=== PATIENT | female | born 1975 | race Caucasian/White ===

== ENCOUNTER 2019-04-12 16:54 | Emergency (ER) | payer MEDICAID ==
[~2019-04-12] VITALS: Ht 160 cm; Wt 100.2 kg
[~2019-04-12 16:54] MED LIST: ALPR1T PO; CYCL10TA9; DCS100C PO; FERR-57 PO; FOLI1TAB7 PO; HYDR-34; HYDR-34 PO; HYDR-3720 PO; IBP600T1 PO; IBUP-15; IBUP-1773 PO; IBUP800T26 PO; KETO-22 PO; MDR10T PO; MEDR10TA PO; RT-ALBUINH IH; SERT50TA9 PO; SLMFT1E INH; Simethicone PO
--- OUTSIDE RECORDS SUMMARY | 2019-04-12 16:59 | XMS REPORT ---
Author Author PRINCE COHEN Organization [facility] Address [address] [place] [address] Care Team Providers Care Post Closing Specialist Name Role Phone PRINCE COHEN Unavailable PROBLEMS Type Condition ICD9-CM Code [id number] Code Onset Dates Condition Status SNOMED Code Problem Hypertriglyceridemia E78.1 Active 760456979 Problem Moderate episode of recurrent major depressive disorder F33.1 Active 018927226 Problem Encounter to establish care Z76.89 Active 044213727 Problem Grief F43.20 Active 01991242 Problem Urinary incontinence without sensory awareness N39.42 Active 513431131 Problem Anxiety F41.9 Active 26828321 Problem Migraine with status migrainosus, not intractable, unspecified migraine type G43.901 Active 781285774 Problem Essential hypertension I10 Active 84179966 Problem Other chronic pain G89.29 Active 32570887 ALLERGIES No Information ENCOUNTERS Encounter Location Date Diagnosis [place] [id number] [place] [id number] [place] [address] 24 May, 2018 [place] [id number] [place] [address] 14 May, 2018 Other chronic pain G89.29 [facility] [id number] [place] [address] Apr, Other chronic pain G89.29 [facility] [id number] [place] [address] Mar, Other chronic pain G89.29 [facility] [id number] [place] [address] Feb, Other chronic pain G89.29 [facility] [address] [address] January, Other chronic pain G89.29 [facility] [id number] [place] [address] Dec, Other chronic pain G89.29 [facility] [id number] [place] [address] Dec, [facility] [id number] [place] [address] Dec, Essential hypertension I10 and Anxiety F41.9 [facility] [id number] [place] [address] Nov, Anxiety F41.9 ; Essential hypertension I10 ; Chronic prescription opiate use Z79.891 and BMI 50.0-59.9, adult Z68.43 [place] [id number] [place] [address] Nov, Other chronic pain G89.29 [facility] [id number] [place] [address] Nov, Other chronic pain G89.29 [facility] [id number] [place] [address] Oct, [facility] [id number] [place] [address] Oct, [facility] [id number] [place] [address] Oct, Essential hypertension I10 ; Encounter for immunization Z23 ; BMI 50.0-59.9, adult Z68.43 ; Other chronic pain G89.29 ; Tobacco use Z72.0 and Tobacco abuse counseling Z71.6 [place] [id number] [place] [address] 02 Oct, 2017 Other chronic pain G89.29 [facility] [id number] [place] [address] Sep, Other chronic pain G89.29 [facility] [id number] [place] [address] Aug, Other chronic pain G89.29 [facility] [address] [address] Jul, Other chronic pain G89.29 [facility] [id number] [place] [address] 18 Jun, 2017 Hypertriglyceridemia E78.1 [facility] [address] [address] 16 Jun, 2017 Other chronic pain G89.29 ; Essential hypertension I10 and Anxiety F41.9 [place] [address] [address] May, Other chronic pain G89.29 [place] [address] [address] Apr, Other chronic pain G89.29 [place] [address] [address] Mar, Grief F43.20 [place] [address] [address] Mar, Other chronic pain G89.29 [place] [id number] [place] [address] Feb, Other chronic pain G89.29 [place] [id number] [place] [address] Feb, Annual physical exam Z00.00 ; Acute right flank pain R10.9 ; Urinary incontinence without sensory awareness N39.42 ; Anxiety F41.9 and Essential hypertension I10 [place] [id number] [place] [address] January, Other chronic pain G89.29 [facility] [id number] [place] [address] January, Other chronic pain G89.29 [place] [id number] [place] [address] January, [place] [address] [address] Dec, Essential hypertension I10 ; Anxiety F41.9 and Other chronic pain G89.29 [place] [address] [address] Nov, [place] [address] [address] Nov, Mild intermittent asthma without complication J45.20 [place] [address] [address] Oct, [place] [address] [address] Oct, [place] [address] [address] Oct, [place] [address] [address] Oct, Essential hypertension I10 ; Anxiety F41.9 and Rash R21 [place] [id number] [place] [address] Oct, [place] [id number] [place] [address] Oct, Allergic contact dermatitis, unspecified trigger L23.9 [place] [id number] [place] [address] Oct, [place] [address] [address] Sep, Anxiety F41.9 and Moderate episode of recurrent major depressive disorder F33.1 [place] [id number] [place] [address] Sep, Anxiety F41.9 and Essential hypertension I10 [facility] [address] [id number], [place] [address] Sep, [facility] [address] [id number], [place] [address] Aug, [facility] [address] [id number], [place] [address] Aug, [facility] [address] [facility] [id number] [place] [address] Aug, [facility] [address] [id number], [place] [address] Jul, Other chronic pain G89.29 [facility] [id number] [place] [address] Jul, [facility] [address] [facility] [id number] [place] [address] Jun, Other chronic pain G89.29 [facility] [address] [id number], [place] [address] Jun, [facility] [address] [facility] [id number] [place] [address] Jun, [facility] [address] [facility] [id number], [place] [address] Jun, Other chronic pain G89.29 [facility] [address] [facility] [id number], [place] [address] Jun, [facility] [address] [facility] [id number], [place] [address] 30 May, 2016 Sweating abnormality L74.9 and Hot flashes R23.2 [facility] [address] [facility] [id number], [place] [address] 20 May, 2016 [facility] [address] [facility] [id number], [place] [address] 19 May, 2016 Other chronic pain G89.29 [facility] [address] [facility] [id number] [place] [address] Apr, Other chronic pain G89.29 ; Mild intermittent asthma without complication J45.20 and Rash R21 [facility] [address] [facility] [id number] [place] [address] Mar, Encounter to establish care Z76.89 ; Migraine with status migrainosus, not intractable, unspecified migraine type G43.901 ; Anxiety F41.9 and Moderate episode of recurrent major depressive disorder F33.1 IMMUNIZATIONS No Known Immunizations SOCIAL HISTORY Never Assessed REASON FOR VISIT Controlled Med Refill 04/25/18 PLAN OF CARE VITAL SIGNS MEDICATIONS Medication Instructions Dosage Frequency Start Date End Date Duration Status Hydrocodone-Acetaminophen 10-325 MG Orally 3 times a day 1 tablet 8h Apr, 28 days Active RESULTS No Results PROCEDURES No Known procedures INSTRUCTIONS MEDICATIONS ADMINISTERED No Known Medications MEDICAL (GENERAL) HISTORY Type Description Date Medical History Anxiety Medical History Major depressive disorder, single episode, unspecified Medical History Pain, unspecified Medical History asthma Surgical History cholecystectomy Surgical History section Surgical History partial hysterectomy Hospitalization History surgeries
--- OUTSIDE RECORDS SUMMARY | 2019-04-12 16:59 | XMS REPORT ---
Author Author PRINCE COHEN Organization [facility] Address [address] [place] [address] Care Team Providers Care Director Of Transportation Name Role Phone PRINCE COHEN Unavailable PROBLEMS Type Condition ICD9-CM Code AUZ30-ER Code Onset Dates Condition Status SNOMED Code Problem Hypertriglyceridemia E78.1 Active 602682303 Problem Moderate episode of recurrent major depressive disorder F33.1 Active 970328506 Problem Encounter to establish care Z76.89 Active 237912020 Problem Grief F43.20 Active 65842687 Problem Urinary incontinence without sensory awareness N39.42 Active 838114552 Problem Anxiety F41.9 Active 38972081 Problem Migraine with status migrainosus, not intractable, unspecified migraine type G43.901 Active 979089567 Problem Essential hypertension I10 Active 41926546 Problem Other chronic pain G89.29 Active 20504871 ALLERGIES No Information ENCOUNTERS Encounter Location Date Diagnosis [place] [address] [address] Jul, Other chronic pain G89.29 [place] [address] [place] [address] [id number] [place] [address] Jun, Other chronic pain G89.29 [place] [address] [address] 24 May, 2018 Essential hypertension I10 ; Anxiety F41.9 ; BMI 50.0-59.9, adult Z68.43 and Therapeutic drug monitoring Z51.81 [place] [address] [address] 14 May, 2018 Other chronic pain G89.29 [place] [address] [address] Apr, Other chronic pain G89.29 [facility] [address] [address] Mar, Other chronic pain G89.29 [facility] [id number] [place] [address] Feb, Other chronic pain G89.29 [facility] [id number] [place] [address] January, Other chronic pain G89.29 [facility] [id number] [place] [address] Dec, Other chronic pain G89.29 [facility] [id number] [place] [address] Dec, [facility] [id number] [place] [address] Dec, Essential hypertension I10 and Anxiety F41.9 [facility] [id number] [place] [address] Nov, Anxiety F41.9 ; Essential hypertension I10 ; Chronic prescription opiate use Z79.891 and BMI 50.0-59.9, adult Z68.43 [facility] [id number] [place] [address] Nov, Other chronic pain G89.29 [facility] [id number] [place] [address] Nov, Other chronic pain G89.29 [facility] [address] [place] [address] Oct, [facility] [id number] [place] [address] Oct, [facility] [address] [place] [address] Oct, Essential hypertension I10 ; Encounter for immunization Z23 ; BMI 50.0-59.9, adult Z68.43 ; Other chronic pain G89.29 ; Tobacco use Z72.0 and Tobacco abuse counseling Z71.6 [facility] [id number] [place] [address] Oct, Other chronic pain G89.29 [facility] [id number] [place] [address] Sep, Other chronic pain G89.29 [facility] [address] [address] Aug, Other chronic pain G89.29 [facility] [address] [address] Jul, Other chronic pain G89.29 [place] [address] [address] Jun, Hypertriglyceridemia E78.1 [place] [address] [address] Jun, Other chronic pain G89.29 ; Essential hypertension I10 and Anxiety F41.9 [place] [address] [address] May, Other chronic pain G89.29 [facility] [address] [address] Apr, Other chronic pain G89.29 [facility] [address] [address] Mar, Grief F43.20 [facility] [address] [place] [id number] [place] [address] Mar, Other chronic pain G89.29 [place] [address] [address] Feb, Other chronic pain G89.29 [facility] [id number] [place] [address] Feb, Annual physical exam Z00.00 ; Acute right flank pain R10.9 ; Urinary incontinence without sensory awareness N39.42 ; Anxiety F41.9 and Essential hypertension I10 [place] [address] [address] January, Other chronic pain G89.29 [place] [address] [address] January, Other chronic pain G89.29 [facility] [address] [address] January, [place] [address] [address] Dec, Essential hypertension I10 ; Anxiety F41.9 and Other chronic pain G89.29 [place] [address] [address] Nov, [place] [address] [address] Nov, Mild intermittent asthma without complication J45.20 [place] [address] [address] Oct, [place] [address] [address] Oct, [place] [address] [address] Oct, [facility] [address] [address] Oct, Essential hypertension I10 ; Anxiety F41.9 and Rash R21 [place] [address] [address] Oct, [place] [address] [address] Oct, Allergic contact dermatitis, unspecified trigger L23.9 [place] [address] [place] [address] Oct, [facility] [id number] [place] [address] Sep, Anxiety F41.9 and Moderate episode of recurrent major depressive disorder F33.1 [facility] [id number] [place] [address] Sep, Anxiety F41.9 and Essential hypertension I10 [facility] [id number] [place] [address] Sep, [facility] [id number] [place] [address] Aug, [facility] [id number] [place] [address] Aug, [facility] [id number] [place] [address] Aug, [facility] [id number] [place] [address] Jul, Other chronic pain G89.29 [facility] [id number] [place] [address] Jul, [facility] [id number] [place] [address] Jun, Other chronic pain G89.29 [facility] [id number] [place] [address] Jun, [facility] [id number] [place] [address] Jun, [facility] [id number] [place] [address] Jun, Other chronic pain G89.29 [facility] [address] [place] [address] Jun, [facility] [id number] [address] 30 May, 2016 Sweating abnormality L74.9 and Hot flashes R23.2 [place] [address] [place] [address] May, [place] [address] [place] [address] 19 May, 2016 Other chronic pain G89.29 [place] [address] [place] [address] [id number] [place] [address] Apr, Other chronic pain G89.29 ; Mild intermittent asthma without complication J45.20 and Rash R21 [address] [place] [address] Mar, Encounter to establish care Z76.89 ; Migraine with status migrainosus, not intractable, unspecified migraine type G43.901 ; Anxiety F41.9 and Moderate episode of recurrent major depressive disorder F33.1 IMMUNIZATIONS No Known Immunizations SOCIAL HISTORY Never Assessed REASON FOR VISIT Controlled Med Refill 07/18/18 PLAN OF CARE VITAL SIGNS MEDICATIONS Medication Instructions Dosage Frequency Start Date End Date Duration Status Hydrocodone-Acetaminophen 10-325 MG Orally 3 times a day 1 tablet 8h 10 Jul, 2018 28 days Active RESULTS No Results PROCEDURES No Known procedures INSTRUCTIONS MEDICATIONS ADMINISTERED No Known Medications MEDICAL (GENERAL) HISTORY Type Description Date Medical History Anxiety Medical History Major depressive disorder, single episode, unspecified Medical History Pain, unspecified Medical History asthma Surgical History cholecystectomy Surgical History section Surgical History partial hysterectomy Hospitalization History surgeries
--- OUTSIDE RECORDS SUMMARY | 2019-04-12 16:59 | XMS REPORT ---
Author Author PRINCE COHEN Organization [facility] Address [address] [place] [address] Care Team Providers Care Asbestos Worker Name Role Phone PRINCE COHEN Unavailable PROBLEMS Type Condition ICD9-CM Code [id number] Code Onset Dates Condition Status SNOMED Code Problem Hypertriglyceridemia E78.1 Active 360455530 Problem Moderate episode of recurrent major depressive disorder F33.1 Active 859632781 Problem Encounter to establish care Z76.89 Active 678716252 Problem Grief F43.20 Active 37691319 Problem Urinary incontinence without sensory awareness N39.42 Active 472900956 Problem Anxiety F41.9 Active 03037736 Problem Migraine with status migrainosus, not intractable, unspecified migraine type G43.901 Active 202017340 Problem Essential hypertension I10 Active 35706319 Problem Other chronic pain G89.29 Active 35175633 ALLERGIES No Information ENCOUNTERS Encounter Location Date Diagnosis [place] [id number] [place] [address] 12 Jun, 2018 Other chronic pain G89.29 [place] [id number] [place] [address] 24 May, 2018 Essential hypertension I10 ; Anxiety F41.9 ; BMI 50.0-59.9, adult Z68.43 and Therapeutic drug monitoring Z51.81 [place] [id number] [place] [address] 14 May, 2018 Other chronic pain G89.29 [place] [id number] [place] [address] Apr, Other chronic pain G89.29 [place] [id number] [place] [address] Mar, Other chronic pain G89.29 [facility] [id number] [place] [address] Feb, Other chronic pain G89.29 [facility] [id number] [place] [address] January, Other chronic pain G89.29 [facility] [id number] [place] [address] Dec, Other chronic pain G89.29 [facility] [id number] [place] [address] Dec, [place] [address] [address] Dec, Essential hypertension I10 and Anxiety F41.9 [place] [address] [address] Nov, Anxiety F41.9 ; Essential hypertension I10 ; Chronic prescription opiate use Z79.891 and BMI 50.0-59.9, adult Z68.43 [facility] [id number] [place] [address] Nov, Other chronic pain G89.29 [facility] [id number] [place] [address] Nov, Other chronic pain G89.29 [facility] [id number] [place] [address] Oct, [facility] [id number] [place] [address] Oct, [facility] [id number] [place] [address] Oct, Essential hypertension I10 ; Encounter for immunization Z23 ; BMI 50.0-59.9, adult Z68.43 ; Other chronic pain G89.29 ; Tobacco use Z72.0 and Tobacco abuse counseling Z71.6 [place] [id number] [place] [address] Oct, Other chronic pain G89.29 [facility] [address] [address] Sep, Other chronic pain G89.29 [facility] [id number] [place] [address] Aug, Other chronic pain G89.29 [facility] [address] [address] Jul, Other chronic pain G89.29 [facility] [address] [address] Jun, Hypertriglyceridemia E78.1 [facility] [address] [address] 16 Jun, 2017 Other chronic pain G89.29 ; Essential hypertension I10 and Anxiety F41.9 [facility] [address] [address] May, Other chronic pain G89.29 [facility] [address] [address] Apr, Other chronic pain G89.29 [facility] [id number] [place] [address] Mar, Grief F43.20 [facility] [address] [address] Mar, Other chronic pain G89.29 [facility] [id number] [place] [address] Feb, Other chronic pain G89.29 [facility] [address] [address] Feb, Annual physical exam Z00.00 ; Acute right flank pain R10.9 ; Urinary incontinence without sensory awareness N39.42 ; Anxiety F41.9 and Essential hypertension I10 [facility] [id number] [place] [address] January, Other chronic pain G89.29 [facility] [address] [address] January, Other chronic pain G89.29 [facility] [address] [address] January, [facility] [address] [address] Dec, Essential hypertension I10 ; Anxiety F41.9 and Other chronic pain G89.29 [facility] [address] [address] Nov, [facility] [address] [address] Nov, Mild intermittent asthma without complication J45.20 [facility] [address] [address] Oct, [facility] [id number] [place] [address] Oct, [facility] [id number] [place] [address] Oct, [facility] [id number] [place] [address] Oct, Essential hypertension I10 ; Anxiety F41.9 and Rash R21 [facility] [id number] [place] [address] Oct, [facility] [address] [address] Oct, Allergic contact dermatitis, unspecified trigger L23.9 [facility] [id number] [place] [address] Oct, [facility] [address] [address] Sep, Anxiety F41.9 and Moderate episode of recurrent major depressive disorder F33.1 [facility] [id number] [place] [address] Sep, Anxiety F41.9 and Essential hypertension I10 [facility] [id number] [place] [address] Sep, [facility] [id number] [place] [address] Aug, [facility] [id number] [place] [address] Aug, [facility] [id number] [place] [address] Aug, [facility] [id number] [place] [address] Jul, Other chronic pain G89.29 [facility] [id number] [place] [address] Jul, [facility] [id number] [place] [address] Jun, Other chronic pain G89.29 [facility] [id number] [place] [address] Jun, [facility] [id number] [place] [address] Jun, [facility] [id number] [place] [address] Jun, Other chronic pain G89.29 [facility] [id number] [place] [address] Jun, [facility] [address] [place] [id number] [place] [address] 30 May, 2016 Sweating abnormality L74.9 and Hot flashes R23.2 [facility] [address] [facility] [id number] [address] May, [facility] [address] [facility] [id number] [address] May, Other chronic pain G89.29 [place] [address] [place] [address] [id number] [address] Apr, Other chronic pain G89.29 ; Mild intermittent asthma without complication J45.20 and Rash R21 [place] [address] [place] [address] [id number] [address] Mar, Encounter to establish care Z76.89 ; Migraine with status migrainosus, not intractable, unspecified migraine type G43.901 ; Anxiety F41.9 and Moderate episode of recurrent major depressive disorder F33.1 IMMUNIZATIONS No Known Immunizations SOCIAL HISTORY Never Assessed REASON FOR VISIT Controlled Med Refill 06/20/18 PLAN OF CARE VITAL SIGNS MEDICATIONS Medication Instructions Dosage Frequency Start Date End Date Duration Status Hydrocodone-Acetaminophen 10-325 MG Orally 3 times a day 1 tablet 8h 15 Jun, 2018 28 days Active RESULTS No Results PROCEDURES No Known procedures INSTRUCTIONS MEDICATIONS ADMINISTERED No Known Medications MEDICAL (GENERAL) HISTORY Type Description Date Medical History Anxiety Medical History Major depressive disorder, single episode, unspecified Medical History Pain, unspecified Medical History asthma Surgical History cholecystectomy Surgical History section Surgical History partial hysterectomy Hospitalization History surgeries
--- OUTSIDE RECORDS SUMMARY | 2019-04-12 16:59 | XMS REPORT ---
Author Author PRINCE COHEN Organization [facility] Address [address] [place] [address] Care Team Providers Care Family Helper Name Role Phone PRINCE COHEN Unavailable PROBLEMS Type Condition ICD9-CM Code VBF07-VC Code Onset Dates Condition Status SNOMED Code Problem Hypertriglyceridemia E78.1 Active 239926941 Problem Encounter to establish care Z76.89 Active 422981862 Problem Moderate episode of recurrent major depressive disorder F33.1 Active 137726048 Problem Urinary incontinence without sensory awareness N39.42 Active 575039705 Problem Grief F43.20 Active 34149963 Problem Migraine with status migrainosus, not intractable, unspecified migraine type G43.901 Active 071158821 Problem Anxiety F41.9 Active 24139286 Problem Other chronic pain G89.29 Active 28229618 Problem Essential hypertension I10 Active 33666459 ALLERGIES Substance Reaction Event Type Date Status Latex Unknown Drug Allergy Oct, Active Quinapril HCl flu like symptoms Drug Allergy Oct, Active Aspirin swelling Drug Allergy Oct, Active ENCOUNTERS Encounter Location Date Diagnosis [place] [id number] [address] Nov, [address] [place] [address] Oct, Essential hypertension I10 ; Anxiety F41.9 ; Other chronic pain G89.29 ; Therapeutic drug monitoring Z51.81 and BMI 50.0-59.9, adult Z68.43 [id number] [place] [address] Sep, Other chronic pain G89.29 [place] [address] [place] [id number] [address] Sep, Other chronic pain G89.29 [facility] [address] [address] Aug, Other chronic pain G89.29 [facility] [address] [place] [id number] [place] [address] Jul, Other chronic pain G89.29 [facility] [address] [place] [id number] [place] [address] Jun, Other chronic pain G89.29 [facility] [address] [place] [id number] [place] [address] 24 May, 2018 Essential hypertension I10 ; Anxiety F41.9 ; BMI 50.0-59.9, adult Z68.43 and Therapeutic drug monitoring Z51.81 [facility] [address] [place] [id number] [place] [address] 14 May, 2018 Other chronic pain G89.29 [facility] [address] [place] [id number] [place] [address] Apr, Other chronic pain G89.29 [facility] [address] [place] [id number] [place] [address] Mar, Other chronic pain G89.29 [facility] [address] [place] [id number] [place] [address] Feb, Other chronic pain G89.29 [facility] [address] [place] [id number] [place] [address] January, Other chronic pain G89.29 [facility] [id number] [place] [address] Dec, Other chronic pain G89.29 [facility] [address] [place] [id number] [place] [address] Dec, [facility] [id number] [place] [address] Dec, Essential hypertension I10 and Anxiety F41.9 [facility] [address] [place] [id number] [place] [address] Nov, Anxiety F41.9 ; Essential hypertension I10 ; Chronic prescription opiate use Z79.891 and BMI 50.0-59.9, adult Z68.43 [place] [address] [place] [id number] [place] [address] Nov, Other chronic pain G89.29 [place] [address] [address] Nov, Other chronic pain G89.29 [place] [address] [address] Oct, [place] [address] [address] Oct, [place] [address] [address] Oct, Essential hypertension I10 ; Encounter for immunization Z23 ; BMI 50.0-59.9, adult Z68.43 ; Other chronic pain G89.29 ; Tobacco use Z72.0 and Tobacco abuse counseling Z71.6 [place] [address] [place] [id number] [place] [address] Oct, Other chronic pain G89.29 [place] [address] [place] [id number] [place] [address] Sep, Other chronic pain G89.29 [place] [address] [place] [id number] [place] [address] Aug, Other chronic pain G89.29 [place] [address] [address] Jul, Other chronic pain G89.29 [place] [address] [place] [address] [id number] [place] [address] Jun, Hypertriglyceridemia E78.1 [place] [address] [address] Jun, Other chronic pain G89.29 ; Essential hypertension I10 and Anxiety F41.9 [facility] [address] [id number] [place] [address] 15 May, 2017 Other chronic pain G89.29 [facility] [address] [place] [id number] [place] [address] Apr, Other chronic pain G89.29 [facility] [address] [place] [id number] [place] [address] Mar, Grief F43.20 [facility] [address] [place] [address] [id number] [place] [address] Mar, Other chronic pain G89.29 [facility] [address] [place] [id number] [place] [address] Feb, Other chronic pain G89.29 [facility] [address] [place] [id number] [place] [address] Feb, Annual physical exam Z00.00 ; Acute right flank pain R10.9 ; Urinary incontinence without sensory awareness N39.42 ; Anxiety F41.9 and Essential hypertension I10 [facility] [address] [place] [id number] [place] [address] January, Other chronic pain G89.29 [facility] [address] [place] [address] January, Other chronic pain G89.29 [facility] [address] [place] [id number] [place] [address] January, [facility] [address] [place] [id number] [place] [address] Dec, Essential hypertension I10 ; Anxiety F41.9 and Other chronic pain G89.29 [facility] [address] [place] [id number] [place] [address] Nov, [facility] [address] [place] [address] Nov, Mild intermittent asthma without complication J45.20 [facility] [address] [address] Oct, [facility] [address] [address] Oct, [facility] [address] [address] Oct, [facility] [address] [address] Oct, Essential hypertension I10 ; Anxiety F41.9 and Rash R21 [place] [address] [address] Oct, [place] [address] [address] Oct, Allergic contact dermatitis, unspecified trigger L23.9 [facility] [address] [address] Oct, [facility] [address] [address] Sep, Anxiety F41.9 and Moderate episode of recurrent major depressive disorder F33.1 [place] [address] [address] Sep, Anxiety F41.9 and Essential hypertension I10 [facility] [address] [place] [id number] [place] [address] Sep, [facility] [address] [address] Aug, [facility] [address] [address] Aug, [facility] [address] [address] Aug, [facility] [address] [address] Jul, Other chronic pain G89.29 [facility] [address] [id number] [place] [address] Jul, [facility] [address] [place] [id number] [place] [address] Jun, Other chronic pain G89.29 [facility] [id number] [place] [address] Jun, [facility] [address] [place] [id number] [place] [address] Jun, [facility] [address] [id number] [place] [address] Jun, Other chronic pain G89.29 [facility] [address] [place] [id number] [place] [address] Jun, [facility] [address] [id number] [place] [address] 30 May, 2016 Sweating abnormality L74.9 and Hot flashes R23.2 [facility] [address] [place] [id number] [place] [address] May, [facility] [address] [place] [id number] [place] [address] May, Other chronic pain G89.29 [facility] [id number] [place] [address] Apr, Other chronic pain G89.29 ; Mild intermittent asthma without complication J45.20 and Rash R21 [facility] [address] [place] [id number] [place] [address] Mar, Encounter to establish care Z76.89 ; Migraine with status migrainosus, not intractable, unspecified migraine type G43.901 ; Anxiety F41.9 and Moderate episode of recurrent major depressive disorder F33.1 IMMUNIZATIONS No Known Immunizations SOCIAL HISTORY Never Assessed REASON FOR VISIT Pain management (chronic) Pt in for follow up States Rt ear has been leaking s tates eyes are hurting. Also has a knot in abdomen MONTY Sharma PLAN OF CARE Activity Details Follow Up 4 Weeks Reason:BP Pending Test PDM - 09 PANEL (PROFILE 1) VITAL SIGNS Height 53 in 2018-10-17 Weight 232.7 lbs 2018-10-17 Temperature 97.9 degrees Fahrenheit 2018-10-17 Heart Rate 91 bpm 2018-10-17 Respiratory Rate 20 2018-10-17 Oximetry on room air:97 % 2018-10-17 BMI 58.24 kg/m2 2018-10-17 Blood pressure systolic 172 mmHg 2018-10-17 Blood pressure diastolic 124 mmHg 2018-10-17 MEDICATIONS Medication Instructions Dosage Frequency Start Date End Date Duration Status Depakote ER 500 mg Orally at bedtime as directed May, 30 days Active Toprol XL 25 MG Orally Once a day 1 tablet 24h 11 Oct, 2018 30 day(s) Active Ventolin HFA 108 (90 Base) MCG/ACT Inhalation every 4 hrs 2 puffs as needed 4h 17 Active HydrOXYzine HCl 25 MG Orally every 6 hrs 1 tablet 6h 16 Oct, 2016 30 day(s) Active Zoloft 100 mg Orally Once a day 1 tablet 24h 90 Active Hydrocodone-Acetaminophen 10-325 MG Orally 3 times a day 1 tablet 8h Oct, 28 days Active RESULTS No Results PROCEDURES Procedure Date Ordered Result Body Site 09 PANEL (PROFILE 1) Oct 17, 2018 INSTRUCTIONS MEDICATIONS ADMINISTERED No Known Medications MEDICAL (GENERAL) HISTORY Type Description Date Medical History Anxiety Medical History Major depressive disorder, single episode, unspecified Medical History Pain, unspecified Medical History asthma Surgical History cholecystectomy Surgical History section Surgical History partial hysterectomy Hospitalization History surgeries
--- OUTSIDE RECORDS SUMMARY | 2019-04-12 16:59 | XMS REPORT ---
Author Author PRINCE COHEN Organization [facility] Address [address] [place] [address] Care Team Providers Care Freight Flagman Name Role Phone PRINCE COHEN Unavailable PROBLEMS Type Condition ICD9-CM Code CRC21-RN Code Onset Dates Condition Status SNOMED Code Problem Hypertriglyceridemia E78.1 Active 763860770 Problem Moderate episode of recurrent major depressive disorder F33.1 Active 070630919 Problem Encounter to establish care Z76.89 Active 172337377 Problem Grief F43.20 Active 79616788 Problem Urinary incontinence without sensory awareness N39.42 Active 643762075 Problem Anxiety F41.9 Active 61845116 Problem Migraine with status migrainosus, not intractable, unspecified migraine type G43.901 Active 520503509 Problem Essential hypertension I10 Active 03049912 Problem Other chronic pain G89.29 Active 52458933 ALLERGIES No Information ENCOUNTERS Encounter Location Date Diagnosis [place] [address] [address] 07 Aug, 2018 Other chronic pain G89.29 [place] [address] [address] Jul, Other chronic pain G89.29 [place] [address] [address] Jun, Other chronic pain G89.29 [place] [address] [address] 24 May, 2018 Essential hypertension I10 ; Anxiety F41.9 ; BMI 50.0-59.9, adult Z68.43 and Therapeutic drug monitoring Z51.81 [place] [address] [address] 14 May, 2018 Other chronic pain G89.29 [facility] [address] [place] [id number] [place] [address] Apr, Other chronic pain G89.29 [facility] [id number] [place] [address] Mar, Other chronic pain G89.29 [facility] [address] [id number] [place] [address] Feb, Other chronic pain G89.29 [facility] [id number] [place] [address] January, Other chronic pain G89.29 [facility] [address] [address] Dec, Other chronic pain G89.29 [facility] [id number] [place] [address] Dec, [facility] [address] [address] Dec, Essential hypertension I10 and Anxiety F41.9 [facility] [id number] [place] [address] Nov, Anxiety F41.9 ; Essential hypertension I10 ; Chronic prescription opiate use Z79.891 and BMI 50.0-59.9, adult Z68.43 [facility] [id number] [place] [address] Nov, Other chronic pain G89.29 [facility] [id number] [place] [address] Nov, Other chronic pain G89.29 [facility] [id number] [place] [address] Oct, [facility] [id number] [place] [address] Oct, [facility] [address] [id number] [place] [address] 14 Oct, 2017 Essential hypertension I10 ; Encounter for immunization Z23 ; BMI 50.0-59.9, adult Z68.43 ; Other chronic pain G89.29 ; Tobacco use Z72.0 and Tobacco abuse counseling Z71.6 [place] [address] [place] [id number] [place] [address] 02 Oct, 2017 Other chronic pain G89.29 [place] [address] [address] Sep, Other chronic pain G89.29 [place] [address] [address] Aug, Other chronic pain G89.29 [place] [address] [id number] [place] [address] Jul, Other chronic pain G89.29 [place] [address] [address] Jun, Hypertriglyceridemia E78.1 [place] [address] [address] Jun, Other chronic pain G89.29 ; Essential hypertension I10 and Anxiety F41.9 [place] [address] [id number] [place] [address] May, Other chronic pain G89.29 [place] [address] [address] Apr, Other chronic pain G89.29 [place] [address] [id number] [place] [address] Mar, Grief F43.20 [place] [address] [address] Mar, Other chronic pain G89.29 [place] [address] [place] [id number] [place] [address] Feb, Other chronic pain G89.29 [facility] [address] [id number] [place] [address] Feb, Annual physical exam Z00.00 ; Acute right flank pain R10.9 ; Urinary incontinence without sensory awareness N39.42 ; Anxiety F41.9 and Essential hypertension I10 [facility] [address] [id number] [place] [address] January, Other chronic pain G89.29 [facility] [address] [address] January, Other chronic pain G89.29 [facility] [address] [address] January, [facility] [address] [address] Dec, Essential hypertension I10 ; Anxiety F41.9 and Other chronic pain G89.29 [facility] [address] [address] Nov, [facility] [address] [address] Nov, Mild intermittent asthma without complication J45.20 [facility] [address] [place] [id number] [place] [address] Oct, [facility] [address] [id number] [place] [address] Oct, [facility] [address] [place] [id number] [place] [address] Oct, [facility] [address] [address] Oct, Essential hypertension I10 ; Anxiety F41.9 and Rash R21 [facility] [address] [place] [id number] [place] [address] Oct, [facility] [address] [address] 10 Oct, 2016 Allergic contact dermatitis, unspecified trigger L23.9 [facility] [address] [id number] [place] [address] Oct, [facility] [address] [id number] [place] [address] Sep, Anxiety F41.9 and Moderate episode of recurrent major depressive disorder F33.1 [facility] [address] [id number] [place] [address] Sep, Anxiety F41.9 and Essential hypertension I10 [facility] [address] [place] [id number] [place] [address] Sep, [facility] [address] [id number] [place] [address] Aug, [facility] [id number] [place] [address] Aug, [facility] [address] [id number] [place] [address] Aug, [facility] [address] [id number] [place] [address] Jul, Other chronic pain G89.29 [facility] [id number] [place] [address] Jul, [facility] [address] [place] [id number] [place] [address] Jun, Other chronic pain G89.29 [facility] [id number] [place] [address] Jun, [facility] [address] [place] [id number] [place] [address] Jun, [facility] [id number] [place] [address] Jun, Other chronic pain G89.29 [facility] [address] [address] Jun, [place] [id number] [place] [address] 30 May, 2016 Sweating abnormality L74.9 and Hot flashes R23.2 [place] [address] [place] [id number] [place] [address] May, [place] [address] [place] [id number] [place] [address] May, Other chronic pain G89.29 [place] [address] [place] [id number] [place] [address] Apr, Other chronic pain G89.29 ; Mild intermittent asthma without complication J45.20 and Rash R21 [place] [id number] [place] [address] Mar, Encounter to establish care Z76.89 ; Migraine with status migrainosus, not intractable, unspecified migraine type G43.901 ; Anxiety F41.9 and Moderate episode of recurrent major depressive disorder F33.1 IMMUNIZATIONS No Known Immunizations SOCIAL HISTORY Never Assessed REASON FOR VISIT Controlled Med Refill 08/15 PLAN OF CARE VITAL SIGNS MEDICATIONS Medication Instructions Dosage Frequency Start Date End Date Duration Status Hydrocodone-Acetaminophen 10-325 MG Orally 3 times a day 1 tablet 8h Aug, 28 days Active RESULTS No Results PROCEDURES No Known procedures INSTRUCTIONS MEDICATIONS ADMINISTERED No Known Medications MEDICAL (GENERAL) HISTORY Type Description Date Medical History Anxiety Medical History Major depressive disorder, single episode, unspecified Medical History Pain, unspecified Medical History asthma Surgical History cholecystectomy Surgical History section Surgical History partial hysterectomy Hospitalization History surgeries
--- OUTSIDE RECORDS SUMMARY | 2019-04-12 16:59 | XMS REPORT ---
Author Author PRINCE COHEN Organization [facility] Address [address] [place] [address] Care Team Providers Care Machine Shop Specialist Name Role Phone PRINCE COHEN Unavailable PROBLEMS Type Condition ICD9-CM Code RYY37-CQ Code Onset Dates Condition Status SNOMED Code Problem Hypertriglyceridemia E78.1 Active 266271263 Problem Moderate episode of recurrent major depressive disorder F33.1 Active 186509554 Problem Encounter to establish care Z76.89 Active 366170658 Problem Grief F43.20 Active 26167573 Problem Urinary incontinence without sensory awareness N39.42 Active 844977846 Problem Anxiety F41.9 Active 05326943 Problem Migraine with status migrainosus, not intractable, unspecified migraine type G43.901 Active 534719373 Problem Essential hypertension I10 Active 86666415 Problem Other chronic pain G89.29 Active 15523086 ALLERGIES No Information ENCOUNTERS Encounter Location Date Diagnosis [place] [address] [id number] [place] [address] 10 Jun, 2018 [place] [address] [place] [id number] [place] [address] 24 May, 2018 Essential hypertension I10 ; Anxiety F41.9 ; BMI 50.0-59.9, adult Z68.43 and Therapeutic drug monitoring Z51.81 [place] [address] [place] [address] 14 May, 2018 Other chronic pain G89.29 [place] [address] [place] [id number] [place] [address] Apr, Other chronic pain G89.29 [place] [address] [place] [id number] [place] [address] Mar, Other chronic pain G89.29 [place] [address] [place] [id number] [place] [address] Feb, Other chronic pain G89.29 [facility] [address] [address] January, Other chronic pain G89.29 [facility] [address] [place] [id number] [place] [address] Dec, Other chronic pain G89.29 [facility] [address] [address] Dec, [facility] [address] [address] Dec, Essential hypertension I10 and Anxiety F41.9 [place] [address] [address] Nov, Anxiety F41.9 ; Essential hypertension I10 ; Chronic prescription opiate use Z79.891 and BMI 50.0-59.9, adult Z68.43 [facility] [address] [place] [id number] [place] [address] Nov, Other chronic pain G89.29 [facility] [address] [place] [id number] [place] [address] Nov, Other chronic pain G89.29 [facility] [address] [place] [id number] [place] [address] Oct, [facility] [address] [place] [id number] [place] [address] Oct, [facility] [address] [place] [id number] [place] [address] Oct, Essential hypertension I10 ; Encounter for immunization Z23 ; BMI 50.0-59.9, adult Z68.43 ; Other chronic pain G89.29 ; Tobacco use Z72.0 and Tobacco abuse counseling Z71.6 [facility] [address] [place] [id number] [place] [address] Oct, Other chronic pain G89.29 [facility] [address] [id number] [place] [address] Sep, Other chronic pain G89.29 [facility] [address] [id number] [place] [address] Aug, Other chronic pain G89.29 [facility] [address] [address] Jul, Other chronic pain G89.29 [facility] [address] [address] Jun, Hypertriglyceridemia E78.1 [place] [address] [address] 16 Jun, 2017 Other chronic pain G89.29 ; Essential hypertension I10 and Anxiety F41.9 [place] [address] [address] May, Other chronic pain G89.29 [facility] [address] [id number] [place] [address] Apr, Other chronic pain G89.29 [facility] [address] [id number] [place] [address] Mar, Grief F43.20 [place] [address] [id number] [place] [address] Mar, Other chronic pain G89.29 [facility] [address] [id number] [place] [address] Feb, Other chronic pain G89.29 [place] [address] [id number] [place] [address] Feb, Annual physical exam Z00.00 ; Acute right flank pain R10.9 ; Urinary incontinence without sensory awareness N39.42 ; Anxiety F41.9 and Essential hypertension I10 [place] [address] [place] [address] January, Other chronic pain G89.29 [facility] [address] [address] January, Other chronic pain G89.29 [facility] [address] [address] January, [facility] [address] [address] Dec, Essential hypertension I10 ; Anxiety F41.9 and Other chronic pain G89.29 [facility] [address] [address] Nov, [facility] [address] [address] Nov, Mild intermittent asthma without complication J45.20 [facility] [address] [address] Oct, [facility] [address] [address] Oct, [facility] [address] [address] Oct, [facility] [address] [place] [id number] [place] [address] Oct, Essential hypertension I10 ; Anxiety F41.9 and Rash R21 [facility] [address] [place] [place] [id number] [place] [address] Oct, [facility] [address] [address] Oct, Allergic contact dermatitis, unspecified trigger L23.9 [facility] [address] [id number] [place] [address] Oct, [facility] [address] [address] Sep, Anxiety F41.9 and Moderate episode of recurrent major depressive disorder F33.1 [facility] [address] [id number] [place] [address] Sep, Anxiety F41.9 and Essential hypertension I10 [facility] [id number] [place] [address] Sep, [facility] [id number] [place] [address] Aug, [facility] [id number] [place] [address] Aug, [facility] [id number] [place] [address] Aug, [facility] [id number] [place] [address] Jul, Other chronic pain G89.29 [facility] [id number] [place] [address] Jul, [facility] [id number] [place] [address] Jun, Other chronic pain G89.29 [facility] [id number] [place] [address] Jun, [facility] [id number] [place] [address] Jun, [facility] [id number] [place] [address] Jun, Other chronic pain G89.29 [facility] [id number] [place] [address] Jun, [facility] [id number] [place] [address] 30 May, 2016 Sweating abnormality L74.9 and Hot flashes R23.2 [facility] [id number] [place] [address], [place] [address] May, [facility] [address] [place] [id number] [address] May, Other chronic pain G89.29 [place] [address] [id number] [address] Apr, Other chronic pain G89.29 ; Mild intermittent asthma without complication J45.20 and Rash R21 [place] [address] [place] [address] [id number] [address] Mar, Encounter to establish care Z76.89 ; Migraine with status migrainosus, not intractable, unspecified migraine type G43.901 ; Anxiety F41.9 and Moderate episode of recurrent major depressive disorder F33.1 IMMUNIZATIONS No Known Immunizations SOCIAL HISTORY Never Assessed REASON FOR VISIT Controlled Med Refill 05/23/18 PLAN OF CARE VITAL SIGNS MEDICATIONS Medication Instructions Dosage Frequency Start Date End Date Duration Status Hydrocodone-Acetaminophen 10-325 MG Orally 3 times a day 1 tablet 8h 15 May, 2018 28 days Active RESULTS No Results PROCEDURES No Known procedures INSTRUCTIONS MEDICATIONS ADMINISTERED No Known Medications MEDICAL (GENERAL) HISTORY Type Description Date Medical History Anxiety Medical History Major depressive disorder, single episode, unspecified Medical History Pain, unspecified Medical History asthma Surgical History cholecystectomy Surgical History section Surgical History partial hysterectomy Hospitalization History surgeries
--- OUTSIDE RECORDS SUMMARY | 2019-04-12 17:00 | XMS REPORT ---
Author Author PRINCE COHEN Organization [facility] Address [address] [place] [address] Care Team Providers Care Research Methodologist Name Role Phone PRINCE COHEN Unavailable PROBLEMS Type Condition ICD9-CM Code LVE97-DB Code Onset Dates Condition Status SNOMED Code Problem Hypertriglyceridemia E78.1 Active 668524876 Problem Moderate episode of recurrent major depressive disorder F33.1 Active 890601454 Problem Encounter to establish care Z76.89 Active 641841429 Problem Grief F43.20 Active 47665611 Problem Urinary incontinence without sensory awareness N39.42 Active 779201966 Problem Anxiety F41.9 Active 78986058 Problem Migraine with status migrainosus, not intractable, unspecified migraine type G43.901 Active 471046417 Problem Essential hypertension I10 Active 60724195 Problem Other chronic pain G89.29 Active 36878799 ALLERGIES No Information ENCOUNTERS Encounter Location Date Diagnosis [facility] [id number] [place] [address] May, [facility] [id number] [place] [address] Apr, Other chronic pain G89.29 [facility] [id number] [place] [address] Mar, Other chronic pain G89.29 [facility] [id number] [place] [address] Feb, Other chronic pain G89.29 [facility] [id number] [place] [address] January, Other chronic pain G89.29 [facility] [address] [address] Dec, Other chronic pain G89.29 [facility] [address] [place] [address] Dec, [facility] [id number] [place] [address] Dec, Essential hypertension I10 [address] [facility] [id number] [place] [address] Nov, Anxiety F41.9 ; Essential hypertension I10 ; Chronic prescription opiate use Z79.891 and BMI 50.0-59.9, adult Z68.43 [facility] [id number] [place] [address] Nov, Other chronic pain G89.29 [facility] [id number] [place] [address] Nov, Other chronic pain G89.29 [facility] [id number] [place] [address] Oct, [facility] [id number] [place] [address] Oct, [facility] [id number] [place] [address] Oct, Essential hypertension I10 ; Encounter for immunization Z23 ; BMI 50.0-59.9, adult Z68.43 ; Other chronic pain G89.29 ; Tobacco use Z72.0 and Tobacco abuse counseling Z71.6 [facility] [id number] [place] [address] Oct, Other chronic pain G89.29 [facility] [id number] [place] [address] Sep, Other chronic pain G89.29 [facility] [id number] [place] [address] Aug, Other chronic pain G89.29 [facility] [id number] [place] [address] Jul, Other chronic pain G89.29 [facility] [id number] [place] [address] Jun, Hypertriglyceridemia E78.1 [facility] [id number] [place] [address] 16 Jun, 2017 Other chronic pain G89.29 ; Essential hypertension I10 [address]41[address]9 [facility] [id number] [place] [address] 15 May, 2017 Other chronic pain G89.29 [address] [address] [address] Apr, Other chronic pain G89.29 [place] [id number] [place] [address] Mar, Grief F43.20 [facility] [id number] [place] [address] Mar, Other chronic pain G89.29 [place] [id number] [place] [address] Feb, Other chronic pain G89.29 [place] [id number] [place] [address] Feb, Annual physical exam Z00.00 ; Acute right flank pain R10.9 ; Urinary incontinence without sensory awareness N39.42 ; Anxiety F41.9 [address] Essential hypertension I10 [facility] [id number] [place] [address] January, Other chronic pain G89.29 [place] [id number] [place] [address] January, Other chronic pain G89.29 [facility] [id number] [place] [address] January, [facility] [address] [address] Dec, Essential hypertension I10 ; Anxiety F41.9 and Other chronic pain G89.29 [place] [address] [address] Nov, [place] [address] [address] Nov, Mild intermittent asthma without complication J45.20 [facility] [address] [address] Oct, [address] [address] [address] Oct, [place] [address] [address] Oct, [place] [address] [address] Oct, Essential hypertension I10 ; Anxiety F41.9 and Rash R21 [address] [address] [address] Oct, [place] [address] [address] Oct, Allergic contact dermatitis, unspecified trigger L23.9 [place] [address] [address] Oct, [place] [address] [address] Sep, Anxiety F41.9 and Moderate episode of recurrent major depressive disorder F33.1 [place] [address] [address] Sep, Anxiety F41.9 and Essential hypertension I10 [place] [address] [address] Sep, [place] [id number] [address] Aug, [facility] [id number] [place] [address] Aug, [facility] [address] [facility] [id number] [place] [address] Aug, [facility] [id number] [place] [address] Jul, Other chronic pain G89.29 [facility] [address] [facility] [id number] [place] [address] Jul, [facility] [id number] [place] [address] Jun, Other chronic pain G89.29 [facility] [id number] [place] [address] Jun, [facility] [id number] [place] [address] Jun, [facility] [id number] [place] [address] Jun, Other chronic pain G89.29 [facility] [address] [place] [address] Jun, [facility] [address] [place] [address] 30 May, 2016 Sweating abnormality L74.[address] [facility] [id number] [address] May, [facility] [id number] [place] [address] May, Other chronic pain G89.29 [facility] [id number] [address] Apr, Other chronic pain G89.29 ; Mild intermittent asthma without complication J45.20 and Rash R21 [facility] [address] [facility] [id number] [address] Mar, Encounter to establish care Z76.89 ; Migraine with status migrainosus, not intractable, unspecified migraine type G43.901 ; Anxiety F41.9 and Moderate episode of recurrent major depressive disorder F33.1 IMMUNIZATIONS No Known Immunizations SOCIAL HISTORY Never Assessed REASON FOR VISIT Controlled Med Refill 03/28/18 PLAN OF CARE VITAL SIGNS MEDICATIONS Medication Instructions Dosage Frequency Start Date End Date Duration Status Hydrocodone-Acetaminophen 10-325 MG Orally 3 times a day 1 tablet 8h Mar, 28 days Active RESULTS No Results PROCEDURES No Known procedures INSTRUCTIONS MEDICATIONS ADMINISTERED No Known Medications MEDICAL (GENERAL) HISTORY Type Description Date Medical History Anxiety Medical History Major depressive disorder, single episode, unspecified Medical History Pain, unspecified Medical History asthma Surgical History cholecystectomy Surgical History section Surgical History partial hysterectomy Hospitalization History surgeries
--- OUTSIDE RECORDS SUMMARY | 2019-04-12 17:00 | XMS REPORT ---
Author Author PRINCE COHEN Organization [facility] Address [address] [place] [address] Care Team Providers Care Pharmacy Technician Assistant Name Role Phone PRINCE COHEN Unavailable PROBLEMS Type Condition ICD9-CM Code LKI67-AS Code Onset Dates Condition Status SNOMED Code Problem Hypertriglyceridemia E78.1 Active 474898487 Problem Moderate episode of recurrent major depressive disorder F33.1 Active 131033375 Problem Encounter to establish care Z76.89 Active 399258457 Problem Grief F43.20 Active 27148374 Problem Urinary incontinence without sensory awareness N39.42 Active 637944284 Problem Anxiety F41.9 Active 40896815 Problem Migraine with status migrainosus, not intractable, unspecified migraine type G43.901 Active 771323800 Problem Essential hypertension I10 Active 85149200 Problem Other chronic pain G89.29 Active 32114815 ALLERGIES No Information ENCOUNTERS Encounter Location Date Diagnosis [facility] [id number] [place] [address] May, [facility] [id number] [place] [address] Apr, Other chronic pain G89.29 [facility] [id number] [place] [address] Mar, Other chronic pain G89.29 [facility] [id number] [place] [address] Feb, Other chronic pain G89.29 [facility] [id number] [place] [address] January, Other chronic pain G89.29 [facility] [address] [address] Dec, Other chronic pain G89.29 [facility] [id number] [place] [address] Dec, [facility] [id number] [place] [address] Dec, Essential hypertension I10 and Anxiety F41.9 [facility] [id number] [place] [address] Nov, Anxiety F41.9 ; Essential hypertension I10 ; Chronic prescription opiate use Z79.891 and BMI 50.0-59.9, adult Z68.43 [facility] [id number] [place] [address] Nov, Other chronic pain G89.29 [facility] [id number] [place] [address] Nov, Other chronic pain G89.29 [facility] [id number] [place] [address] Oct, [facility] [id number] [place] [address] Oct, [facility] [id number] [place] [address] Oct, Essential hypertension I10 ; Encounter for immunization Z23 ; BMI 50.0-59.9, adult Z68.43 ; Other chronic pain G89.29 ; Tobacco use Z72.0 and Tobacco abuse counseling Z71.6 [facility] [address] [place] [address] Oct, Other chronic pain G89.29 [facility] [id number] [place] [address] Sep, Other chronic pain G89.29 [facility] [id number] [place] [address] Aug, Other chronic pain G89.29 [facility] [id number] [place] [address] Jul, Other chronic pain G89.29 [facility] [id number] [place] [address] Jun, Hypertriglyceridemia E78.1 [facility] [id number] [place] [address] 16 Jun, 2017 Other chronic pain G89.29 ; Essential hypertension I10 and Anxiety F41.9 [facility] [id number] [place] [address] 15 May, 2017 Other chronic pain G89.29 [place] [address] [address] Apr, Other chronic pain G89.29 [place] [id number] [place] [address] Mar, Grief F43.20 [facility] [id number] [place] [address] Mar, Other chronic pain G89.29 [place] [id number] [place] [address] Feb, Other chronic pain G89.29 [place] [id number] [place] [address] Feb, Annual physical exam Z00.00 ; Acute right flank pain R10.9 ; Urinary incontinence without sensory awareness N39.42 ; Anxiety F41.9 and Essential hypertension I10 [facility] [id number] [place] [address] January, Other chronic pain G89.29 [place] [id number] [place] [address] January, Other chronic pain G89.29 [facility] [id number] [place] [address] January, [facility] [address] [address] Dec, Essential hypertension I10 ; Anxiety F41.9 and Other chronic pain G89.29 [place] [address] [address] Nov, [place] [address] [address] Nov, Mild intermittent asthma without complication J45.20 [facility] [address] [address] Oct, [place] [address] [address] Oct, [place] [address] [address] Oct, [place] [address] [address] Oct, Essential hypertension I10 ; Anxiety F41.9 and Rash R21 [place] [address] [address] Oct, [place] [address] [address] Oct, Allergic contact dermatitis, unspecified trigger L23.9 [place] [address] [address] Oct, [place] [address] [address] Sep, Anxiety F41.9 and Moderate episode of recurrent major depressive disorder F33.1 [place] [address] [address] Sep, Anxiety F41.9 and Essential hypertension I10 [place] [address] [address] Sep, [place] [id number] [address] Aug, [facility] [address] [place] [address] Aug, [facility] [address] [facility] [id number] [place] [address] Aug, [facility] [id number] [place] [address] Jul, Other chronic pain G89.29 [facility] [address] [facility] [place] [id number] [place] [address] Jul, [facility] [id number] [place] [address] Jun, Other chronic pain G89.29 [facility] [id number] [place] [address] Jun, [facility] [id number] [place] [address] Jun, [facility] [id number] [place] [address] Jun, Other chronic pain G89.29 [facility] [address] [place] [address] Jun, [facility] [address] [place] [address] 30 May, 2016 Sweating abnormality L74.9 and Hot flashes R23.2 [facility] [id number] [address] May, [facility] [id number] [place] [address] May, Other chronic pain G89.29 [facility] [id number] [address] Apr, Other chronic pain G89.29 ; Mild intermittent asthma without complication J45.20 and Rash R21 [facility] [address] [facility] [id number] [place] [address] Mar, Encounter to establish care Z76.89 ; Migraine with status migrainosus, not intractable, unspecified migraine type G43.901 ; Anxiety F41.9 and Moderate episode of recurrent major depressive disorder F33.1 IMMUNIZATIONS No Known Immunizations SOCIAL HISTORY Never Assessed REASON FOR VISIT Controlled Med Refill 02/28/18 PLAN OF CARE VITAL SIGNS MEDICATIONS Medication Instructions Dosage Frequency Start Date End Date Duration Status Hydrocodone-Acetaminophen 10-325 MG Orally 3 times a day 1 tablet 8h Feb, 28 days Active RESULTS No Results PROCEDURES No Known procedures INSTRUCTIONS MEDICATIONS ADMINISTERED No Known Medications MEDICAL (GENERAL) HISTORY Type Description Date Medical History Anxiety Medical History Major depressive disorder, single episode, unspecified Medical History Pain, unspecified Medical History asthma Surgical History cholecystectomy Surgical History section Surgical History partial hysterectomy Hospitalization History surgeries
--- OUTSIDE RECORDS SUMMARY | 2019-04-12 17:00 | XMS REPORT ---
Author Author PRINCE COHEN Organization [facility] Address [address] [place] [address] Care Team Providers Care Covering Machine Tender Name Role Phone PRINCE COHEN Unavailable PROBLEMS Type Condition ICD9-CM Code CQT33-LC Code Onset Dates Condition Status SNOMED Code Problem Hypertriglyceridemia E78.1 Active 230615222 Problem Moderate episode of recurrent major depressive disorder F33.1 Active 305913108 Problem Encounter to establish care Z76.89 Active 966075997 Problem Grief F43.20 Active 44566454 Problem Urinary incontinence without sensory awareness N39.42 Active 939096847 Problem Anxiety F41.9 Active 22572803 Problem Migraine with status migrainosus, not intractable, unspecified migraine type G43.901 Active 746770596 Problem Essential hypertension I10 Active 23625282 Problem Other chronic pain G89.29 Active 94233984 ALLERGIES No Information ENCOUNTERS Encounter Location Date Diagnosis [place] [address] [address] Mar, Other chronic pain G89.29 [place] [address] [place] [id number] [place] [address] Feb, Other chronic pain G89.29 [facility] [address] [id number] [place] [address] January, Other chronic pain G89.29 [facility] [id number] [place] [address] Dec, Other chronic pain G89.29 [facility] [address] [id number] [place] [address] Dec, [place] [address] [address] Dec, Essential hypertension I10 and Anxiety F41.9 [facility] [address] [id number] [place] [address] Nov, Anxiety F41.9 ; Essential hypertension I10 ; Chronic prescription opiate use Z79.891 and BMI 50.0-59.9, adult Z68.43 [place] [address] [place] [id number] [place] [address] Nov, Other chronic pain G89.29 [place] [address] [address] Nov, Other chronic pain G89.29 [place] [address] [address] Oct, [place] [address] [address] Oct, [place] [address] [address] Oct, Essential hypertension I10 ; Encounter for immunization Z23 ; BMI 50.0-59.9, adult Z68.43 ; Other chronic pain G89.29 ; Tobacco use Z72.0 and Tobacco abuse counseling Z71.6 [place] [address] [place] [id number] [place] [address] Oct, Other chronic pain G89.29 [place] [address] [place] [id number] [place] [address] Sep, Other chronic pain G89.29 [place] [address] [place] [id number] [place] [address] Aug, Other chronic pain G89.29 [place] [address] [place] [id number] [place] [address] Jul, Other chronic pain G89.29 [place] [address] [place] [id number] [place] [address] Jun, Hypertriglyceridemia E78.1 [place] [id number] [place] [address] 16 Jun, 2017 Other chronic pain G89.29 ; Essential hypertension I10 and Anxiety F41.9 [facility] [address] [place] [address] [id number] [place] [address] 15 May, 2017 Other chronic pain G89.29 [facility] [address] [place] [id number] [place] [address] Apr, Other chronic pain G89.29 [place] [address] [place] [id number] [place] [address] Mar, Grief F43.20 [place] [address] [place] [id number] [place] [address] Mar, Other chronic pain G89.29 [place] [address] [place] [id number] [place] [address] Feb, Other chronic pain G89.29 [facility] [address] [place] [id number] [place] [address] Feb, Annual physical exam Z00.00 ; Acute right flank pain R10.9 ; Urinary incontinence without sensory awareness N39.42 ; Anxiety F41.9 and Essential hypertension I10 [place] [address] [place] [id number] [place] [address] January, Other chronic pain G89.29 [place] [address] [place] [id number] [place] [address] January, Other chronic pain G89.29 [facility] [address] [place] [id number] [place] [address] January, [facility] [address] [place] [id number] [place] [address] Dec, Essential hypertension I10 ; Anxiety F41.9 and Other chronic pain G89.29 [place] [address] [place] [id number] [place] [address] Nov, [facility] [address] [place] [id number] [place] [address] Nov, Mild intermittent asthma without complication J45.20 [facility] [address] [place] [id number] [place] [address] Oct, [facility] [address] [place] [id number] [place] [address] Oct, [facility] [address] [address] Oct, [facility] [address] [address] Oct, Essential hypertension I10 ; Anxiety F41.9 and Rash R21 [place] [address] [address] Oct, [facility] [address] [address] Oct, Allergic contact dermatitis, unspecified trigger L23.9 [facility] [address] [place] [id number] [place] [address] Oct, [facility] [address] [place] [id number] [place] [address] Sep, Anxiety F41.9 and Moderate episode of recurrent major depressive disorder F33.1 [facility] [address] [place] [id number] [place] [address] Sep, Anxiety F41.9 and Essential hypertension I10 [facility] [address] [place] [id number] [place] [address] Sep, [facility] [address] [address] Aug, [facility] [address] [place] [id number] [place] [address] Aug, [facility] [address] [place] [address] Aug, [facility] [address] [place] [id number] [place] [address] Jul, Other chronic pain G89.29 [facility] [address] [place] [id number] [place] [address] Jul, [facility] [address] [place] [id number] [place] [address] Jun, Other chronic pain G89.29 [facility] [address] [place] [id number] [place] [address] Jun, [facility] [address] [place] [id number] [place] [address] Jun, [facility] [address] [place] [id number] [place] [address] Jun, Other chronic pain G89.29 [facility] [address] [place] [id number] [place] [address] Jun, [facility] [address] [place] [id number] [place] [address] 30 May, 2016 Sweating abnormality L74.9 and Hot flashes R23.2 [facility] [address] [place] [address] May, [facility] [address] [place] [address] May, Other chronic pain G89.29 [facility] [address] [place] [address] Apr, Other chronic pain G89.29 ; Mild intermittent asthma without complication J45.20 and Rash R21 [facility] [address] [address] Mar, Encounter to establish care Z76.89 ; Migraine with status migrainosus, not intractable, unspecified migraine type G43.901 ; Anxiety F41.9 and Moderate episode of recurrent major depressive disorder F33.1 IMMUNIZATIONS No Known Immunizations SOCIAL HISTORY Never Assessed REASON FOR VISIT Controlled Med Refill 01/31/18 PLAN OF CARE VITAL SIGNS MEDICATIONS Medication Instructions Dosage Frequency Start Date End Date Duration Status Hydrocodone-Acetaminophen 10-325 MG Orally 3 times a day 1 tablet 8h January, 28 days Active RESULTS No Results PROCEDURES No Known procedures INSTRUCTIONS MEDICATIONS ADMINISTERED No Known Medications MEDICAL (GENERAL) HISTORY Type Description Date Medical History Anxiety Medical History Major depressive disorder, single episode, unspecified Medical History Pain, unspecified Medical History asthma Surgical History cholecystectomy Surgical History section Surgical History partial hysterectomy Hospitalization History surgeries
--- OUTSIDE RECORDS SUMMARY | 2019-04-12 17:00 | XMS REPORT ---
Author Author PRINCE COHEN Organization [facility] Address [address] [place] [address] Care Team Providers Care Coding Quality Analyst Name Role Phone PRINCE COHEN Unavailable PROBLEMS Type Condition ICD9-CM Code FLP49-AK Code Onset Dates Condition Status SNOMED Code Problem Hypertriglyceridemia E78.1 Active 720442569 Problem Moderate episode of recurrent major depressive disorder F33.1 Active 671878202 Problem Encounter to establish care Z76.89 Active 718028361 Problem Grief F43.20 Active 89425754 Problem Urinary incontinence without sensory awareness N39.42 Active 868093304 Problem Anxiety F41.9 Active 96185471 Problem Migraine with status migrainosus, not intractable, unspecified migraine type G43.901 Active 106623457 Problem Essential hypertension I10 Active 28634621 Problem Other chronic pain G89.29 Active 76103433 ALLERGIES Substance Reaction Event Type Date Status Latex Unknown Drug Allergy Nov, Active Quinapril HCl flu like symptoms Drug Allergy Nov, Active Aspirin swelling Drug Allergy Nov, Active ENCOUNTERS Encounter Location Date Diagnosis [facility] [address] [place] [id number] [address] May, [facility] [address] [address] Apr, Other chronic pain G89.29 [facility] [address] [place] [id number] [address] Mar, Other chronic pain G89.29 [facility] [address] [place] [address] Feb, Other chronic pain G89.29 [facility] [address] [address] January, Other chronic pain G89.29 [facility] [address] [place] [address] Dec, Other chronic pain G89.29 [facility] [address] [place] [id number] [place] [address] Dec, [facility] [address] [place] [id number] [place] [address] Dec, Essential hypertension I10 and Anxiety F41.9 [facility] [address] [place] [id number] [place] [address] Nov, Anxiety F41.9 ; Essential hypertension I10 ; Chronic prescription opiate use Z79.891 and BMI 50.0-59.9, adult Z68.43 [facility] [address] [place] [id number] [place] [address] Nov, Other chronic pain G89.29 [facility] [address] [place] [id number] [place] [address] Nov, Other chronic pain G89.29 [facility] [address] [place] [id number] [place] [address] Oct, [facility] [address] [place] [id number] [place] [address] Oct, [facility] [address] [place] [id number] [place] [address] Oct, Essential hypertension I10 ; Encounter for immunization Z23 ; BMI 50.0-59.9, adult Z68.43 ; Other chronic pain G89.29 ; Tobacco use Z72.0 and Tobacco abuse counseling Z71.6 [facility] [address] [place] [id number] [place] [address] 02 Oct, 2017 Other chronic pain G89.29 [facility] [address] [place] [id number] [place] [address] Sep, Other chronic pain G89.29 [facility] [address] [place] [address] [place] [address] Aug, Other chronic pain G89.29 [facility] [address] [place] [id number] [place] [address] Jul, Other chronic pain G89.29 [facility] [address] [place] [id number] [place] [address] Jun, Hypertriglyceridemia E78.1 [facility] [address] [address] 16 Jun, 2017 Other chronic pain G89.29 ; Essential hypertension I10 and Anxiety F41.9 [place] [address] [address] May, Other chronic pain G89.29 [place] [address] [place] [id number] [place] [address] Apr, Other chronic pain G89.29 [facility] [address] [place] [id number] [place] [address] Mar, Grief F43.20 [place] [address] [address] Mar, Other chronic pain G89.29 [place] [address] [place] [id number] [place] [address] Feb, Other chronic pain G89.29 [facility] [address] [place] [id number] [place] [address] Feb, Annual physical exam Z00.00 ; Acute right flank pain R10.9 ; Urinary incontinence without sensory awareness N39.42 ; Anxiety F41.9 and Essential hypertension I10 [place] [address] [place] [id number] [place] [address] January, Other chronic pain G89.29 [facility] [address] [place] [id number] [place] [address] January, Other chronic pain G89.29 [place] [address] [place] [id number] [place] [address] January, [facility] [address] [address] Dec, Essential hypertension I10 ; Anxiety F41.9 and Other chronic pain G89.29 [facility] [address] [address] Nov, [facility] [address] [address] Nov, Mild intermittent asthma without complication J45.20 [place] [address] [address] Oct, [facility] [address] [address] Oct, [facility] [address] [address] Oct, [facility] [address] [address] Oct, Essential hypertension I10 ; Anxiety F41.9 and Rash R21 [place] [address] [address] Oct, [facility] [address] [place] [id number] [place] [address] Oct, Allergic contact dermatitis, unspecified trigger L23.9 [facility] [address] [place] [id number] [place] [address] Oct, [facility] [address] [address] Sep, Anxiety F41.9 and Moderate episode of recurrent major depressive disorder F33.1 [facility] [address] [place] [id number] [place] [address] Sep, Anxiety F41.9 and Essential hypertension I10 [place] [address] [id number] [address] Sep, [facility] [address] [facility] [id number] [address] Aug, [facility] [address] [facility] [id number] [address] Aug, [facility] [address] [facility] [id number] [place] [address] Aug, [facility] [address] [facility] [id number] [place] [address] Jul, Other chronic pain G89.29 [facility] [address] [facility] [id number] [place] [address] Jul, [facility] [address] [facility] [id number] [address] Jun, Other chronic pain G89.29 [facility] [address] [facility] [id number] [place] [address] Jun, [facility] [address] [facility] [id number] [place] [address] Jun, [facility] [address] [facility] [id number] [address] Jun, Other chronic pain G89.29 [facility] [address] [facility] [id number] [address] Jun, [facility] [address] [facility] [id number] [place] [address] 30 May, 2016 Sweating abnormality L74.9 and Hot flashes R23.2 [facility] [address] [facility] [id number] [address] 20 May, 2016 [facility] [address] [facility] [id number] [address] May, Other chronic pain G89.29 [facility] [address] [facility] [id number] [place] [address] Apr, Other chronic pain G89.29 ; Mild intermittent asthma without complication J45.20 and Rash R21 [facility] [address] [facility] [id number] [place] [address] Mar, Encounter to establish care Z76.89 ; Migraine with status migrainosus, not intractable, unspecified migraine type G43.901 ; Anxiety F41.9 and Moderate episode of recurrent major depressive disorder F33.1 IMMUNIZATIONS No Known Immunizations SOCIAL HISTORY Never Assessed REASON FOR VISIT Pain management/Anxiety, Patient reports she stopped taking her Zoloft 1.5 weeks ago because she felt they were making her more angry. She states she feels ang ry and anxious now., Caterina PLAN OF CARE Activity Details Follow Up 1 Week Reason:BP VITAL SIGNS Height 53 in 2017-12-01 Weight 236.1 lbs 2017-12-01 Temperature 98.3 degrees Fahrenheit 2017-12-01 Heart Rate 92 bpm 2017-12-01 Respiratory Rate 22 2017-12-01 BMI 59.09 kg/m2 2017-12-01 Blood pressure systolic 210 mmHg 2017-12-01 Blood pressure diastolic 110 mmHg 2017-12-01 MEDICATIONS Medication Instructions Dosage Frequency Start Date End Date Duration Status Ventolin HFA 108 (90 Base) MCG/ACT Inhalation every 4 hrs 2 puffs as needed 4h 30 Active Toprol XL 50 MG Orally Once a day 1 tablet at bedtime 24h 14 Oct, 2017 30 days Active Detrol LA 4 MG Orally Once a day 1 capsule 24h 19 Feb, 2017 Not-Taking Hydrocodone-Acetaminophen 10-325 MG Orally 3 times a day 1 tablet 8h Nov, 28 days Active HydrOXYzine HCl 25 MG Orally every 6 hrs 1 tablet 6h 16 Oct, 2016 30 day(s) Active Zoloft 100 mg Orally Once a day 1 tablet 24h Not-Taking RESULTS No Results PROCEDURES Procedure Date Ordered Result Body Site DRUG TEST PRSMV CHEM ANLYZR December 01, 2017 DRUG SCREEN AMPHETAMINES 09/07December 01, 2017 INSTRUCTIONS MEDICATIONS ADMINISTERED No Known Medications MEDICAL (GENERAL) HISTORY Type Description Date Medical History Anxiety Medical History Major depressive disorder, single episode, unspecified Medical History Pain, unspecified Medical History asthma Surgical History cholecystectomy Surgical History section Surgical History partial hysterectomy Hospitalization History surgeries
--- OUTSIDE RECORDS SUMMARY | 2019-04-12 17:00 | XMS REPORT ---
Author Author PRINCE COHEN Organization [facility] Address [address] [place] [address] Care Team Providers Care Maintenance Electrician Name Role Phone PRINCE COHEN Unavailable PROBLEMS Type Condition ICD9-CM Code [id number] Code Onset Dates Condition Status SNOMED Code Problem Hypertriglyceridemia E78.1 Active 089515450 Problem Moderate episode of recurrent major depressive disorder F33.1 Active 343413487 Problem Encounter to establish care Z76.89 Active 291823249 Problem Grief F43.20 Active 88075769 Problem Urinary incontinence without sensory awareness N39.42 Active 118639745 Problem Anxiety F41.9 Active 69545221 Problem Migraine with status migrainosus, not intractable, unspecified migraine type G43.901 Active 716647243 Problem Essential hypertension I10 Active 16238619 Problem Other chronic pain G89.29 Active 15187128 ALLERGIES Substance Reaction Event Type Date Status Latex Unknown Drug Allergy Dec, Active Quinapril HCl flu like symptoms Drug Allergy Dec, Active Aspirin swelling Drug Allergy Dec, Active ENCOUNTERS Encounter Location Date Diagnosis [facility] [id number], [place] [address] Mar, Other chronic pain G89.29 [facility] [address] [address] Feb, Other chronic pain G89.29 [facility] [address], [place] [address] January, Other chronic pain G89.29 [facility] [address] [address] Dec, Other chronic pain G89.29 [facility] [id number] [place] [address] Dec, [facility] [id number] [place] [address] Dec, Essential hypertension I10 and Anxiety F41.9 [facility] [id number] [place] [address] Nov, Anxiety F41.9 ; Essential hypertension I10 ; Chronic prescription opiate use Z79.891 and BMI 50.0-59.9, adult Z68.43 [facility] [id number] [place] [address] Nov, Other chronic pain G89.29 [facility] [id number] [place] [address] Nov, Other chronic pain G89.29 [facility] [id number] [place] [address] Oct, [facility] [id number] [place] [address] Oct, [facility] [id number] [place] [address] Oct, Essential hypertension I10 ; Encounter for immunization Z23 ; BMI 50.0-59.9, adult Z68.43 ; Other chronic pain G89.29 ; Tobacco use Z72.0 and Tobacco abuse counseling Z71.6 [facility] [id number] [place] [address] Oct, Other chronic pain G89.29 [facility] [id number] [place] [address] Sep, Other chronic pain G89.29 [facility] [id number] [place] [address] Aug, Other chronic pain G89.29 [facility] [id number] [place] [address] Jul, Other chronic pain G89.29 [facility] [id number] [place] [address] Jun, Hypertriglyceridemia E78.1 [facility] [address] [address] 16 Jun, 2017 Other chronic pain G89.29 ; Essential hypertension I10 and Anxiety F41.9 [facility] [id number] [place] [address] May, Other chronic pain G89.29 [facility] [id number] [place] [address] Apr, Other chronic pain G89.29 [facility] [id number] [place] [address] Mar, Grief F43.20 [facility] [id number] [place] [address] Mar, Other chronic pain G89.29 [facility] [id number] [place] [address] Feb, Other chronic pain G89.29 [facility] [id number] [place] [address] Feb, Annual physical exam Z00.00 ; Acute right flank pain R10.9 ; Urinary incontinence without sensory awareness N39.42 ; Anxiety F41.9 and Essential hypertension I10 [facility] [id number] [place] [address] January, Other chronic pain G89.29 [facility] [id number] [place] [address] January, Other chronic pain G89.29 [facility] [id number] [place] [address] January, [facility] [id number] [place] [address] Dec, Essential hypertension I10 ; Anxiety F41.9 and Other chronic pain G89.29 [facility] [id number] [place] [address] Nov, [facility] [id number] [place] [address] Nov, Mild intermittent asthma without complication J45.20 [facility] [id number] [place] [address] Oct, [facility] [id number] [place] [address] Oct, [facility] [id number] [place] [address] Oct, [facility] [id number] [place] [address] Oct, Essential hypertension I10 ; Anxiety F41.9 and Rash R21 [facility] [id number] [place] [address] Oct, [facility] [id number] [place] [address] Oct, Allergic contact dermatitis, unspecified trigger L23.9 [facility] [id number] [place] [address] Oct, [facility] [id number] [place] [address] Sep, Anxiety F41.9 and Moderate episode of recurrent major depressive disorder F33.1 [facility] [id number] [place] [address] Sep, Anxiety F41.9 and Essential hypertension I10 [facility] [id number] [place] [address] Sep, [facility] [id number] [place] [address] Aug, [facility] [id number] [place] [address] Aug, [facility] [id number] [place] [address] Aug, [facility] [id number] [place] [address] Jul, Other chronic pain G89.29 [facility] [id number] [place] [address] Jul, [facility] [id number] [place] [address] Jun, Other chronic pain G89.29 [facility] [id number] [place] [address] Jun, [facility] [id number] [place] [address] Jun, [facility] [id number] [place] [address] Jun, Other chronic pain G89.29 [facility] [id number] [place] [address] Jun, [facility] [id number] [place] [address] May, Sweating abnormality L74.9 and Hot flashes R23.2 [facility] [id number] [place] [address] May, [facility] [id number] [place] [address] May, Other chronic pain G89.29 [facility] [id number] [place] [address] Apr, Other chronic pain G89.29 ; Mild intermittent asthma without complication J45.20 and Rash R21 [facility] [id number] [place] [address] Mar, Encounter to establish care Z76.89 ; Migraine with status migrainosus, not intractable, unspecified migraine type G43.901 ; Anxiety F41.9 and Moderate episode of recurrent major depressive disorder F33.1 IMMUNIZATIONS No Known Immunizations SOCIAL HISTORY Never Assessed REASON FOR VISIT Blood Pressure-Brock [facility] PLAN OF CARE Activity Details Follow Up 1 Week Reason:BP check VITAL SIGNS Height 53 in 2017-12-07 Weight 238.5 lbs 2017-12-07 Temperature 98.5 degrees Fahrenheit 2017-12-07 Heart Rate 78 bpm 2017-12-07 Respiratory Rate 22 2017-12-07 Oximetry on room air:98 % 2017-12-07 BMI 59.69 kg/m2 2017-12-07 Blood pressure systolic 184 mmHg 2017-12-07 Blood pressure diastolic 112 mmHg 2017-12-07 MEDICATIONS Medication Instructions Dosage Frequency Start Date End Date Duration Status Toprol XL 100 MG Orally Once a day 1 tablet at bedtime 24h Oct, Active HydrOXYzine HCl 25 MG Orally every 6 hrs 1 tablet 6h Oct, 30 day(s) Active Hydrocodone-Acetaminophen 10-325 MG Orally 3 times a day 1 tablet 8h Nov, 28 days Active Detrol LA 4 MG Orally Once a day 1 capsule 24h Feb, Not-Taking Zoloft 100 mg Orally Once a day 1 tablet 24h Not-Taking Ventolin HFA 108 (90 Base) MCG/ACT Inhalation every 4 hrs 2 puffs as needed 4h 30 Active RESULTS No Results PROCEDURES No Known procedures INSTRUCTIONS MEDICATIONS ADMINISTERED No Known Medications MEDICAL (GENERAL) HISTORY Type Description Date Medical History Anxiety Medical History Major depressive disorder, single episode, unspecified Medical History Pain, unspecified Medical History asthma Surgical History cholecystectomy Surgical History section Surgical History partial hysterectomy Hospitalization History surgeries
--- OUTSIDE RECORDS SUMMARY | 2019-04-12 17:01 | XMS REPORT ---
Author Author PRINCE COHEN Organization [facility] Address [address] [place] [address] Care Team Providers Care Piano Mechanic Name Role Phone PRINCE COHEN Unavailable PROBLEMS Type Condition ICD9-CM Code [id number] Code Onset Dates Condition Status SNOMED Code Problem Hypertriglyceridemia E78.1 Active 612718299 Problem Moderate episode of recurrent major depressive disorder F33.1 Active 415245374 Problem Encounter to establish care Z76.89 Active 934714546 Problem Grief F43.20 Active 61354881 Problem Urinary incontinence without sensory awareness N39.42 Active 695347214 Problem Anxiety F41.9 Active 55570607 Problem Migraine with status migrainosus, not intractable, unspecified migraine type G43.901 Active 553148793 Problem Essential hypertension I10 Active 85539735 Problem Other chronic pain G89.29 Active 01778731 ALLERGIES No Information ENCOUNTERS Encounter Location Date Diagnosis [facility] [id number] [place] [address] Mar, [facility] [id number] [place] [address] Mar, Other chronic pain G89.29 [facility] [id number] [place] [address] Feb, Other chronic pain G89.29 [facility] [id number] [place] [address] January, Other chronic pain G89.29 [facility] [id number] [place] [address] Dec, Other chronic pain G89.29 [facility] [place] [address] [address] Dec, [facility] [id number] [place] [address] Dec, Essential hypertension I10 and Anxiety F41.9 [facility] [id number] [place] [address] Nov, Anxiety F41.9 ; Essential hypertension I10 ; Chronic prescription opiate use Z79.891 and BMI 50.0-59.9, adult Z68.43 [facility] [id number] [place] [address] Nov, Other chronic pain G89.29 [address] [place] [address] Nov, Other chronic pain G89.29 [facility] [id number] [place] [address] Oct, [facility] [address] [address] Oct, [facility] [id number] [place] [address] Oct, Encounter for immunization Z23 ; Essential hypertension I10 ; BMI 50.0-59.9, adult Z68.43 ; Other chronic pain G89.29 ; Tobacco use Z72.0 and Tobacco abuse counseling Z71.6 [facility] [id number] [place] [address] Oct, Other chronic pain G89.29 [facility] [id number] [place] [address] Sep, Other chronic pain G89.29 [facility] [id number] [place] [address] Aug, Other chronic pain G89.29 [facility] [id number] [place] [address] Jul, Other chronic pain G89.29 [facility] [id number] [place] [address] Jun, Hypertriglyceridemia E78.1 [address] [facility] [address] 16 Jun, 2017 Other chronic pain G89.29 ; Essential hypertension I10 and Anxiety F41.9 [place] [address] [address] May, Other chronic pain G89.29 [address] [address] Apr, Other chronic pain G89.29 [place] [facility] [address] [address] Mar, Grief F43.20 [place] [address] [address] Mar, Other chronic pain G89.29 [facility] [id number] [place] [address] Feb, Other chronic pain G89.29 [facility] [id number] [place] [address] Feb, Annual physical exam Z00.00 ; Acute right flank pain R10.9 ; Urinary incontinence without sensory awareness N39.42 ; Anxiety F41.9 and Essential hypertension I10 [facility] [id number] [place] [address] January, Other chronic pain G89.29 [facility] [id number] [place] [address] January, Other chronic pain G89.29 [facility] [id number] [place] [address] January, [facility] [id number] [place] [address] Dec, Essential hypertension I10 ; Anxiety F41.9 and Other chronic pain G89.29 [facility] [id number] [place] [address] Nov, [facility] [address] [address] Nov, Mild intermittent asthma without complication J45.20 [facility] [place] [id number] [place] [address] Oct, [facility] [address] [address] Oct, [facility] [address] [address] Oct, [facility] [address] [address] Oct, Essential hypertension I10 ; Anxiety F41.9 and Rash R21 [address] [address] Oct, [facility] [address] [address] Oct, Allergic contact dermatitis, unspecified trigger L23.9 [facility] [id number] [place] [address] Oct, [facility] [id number] [place] [address] Sep, Anxiety F41.9 and Moderate episode of recurrent major depressive disorder F33.1 [facility] [id number] [place] [address] Sep, Anxiety F41.9 and Essential hypertension I10 [address] [address] Sep, [facility] [id number] [place] [address] Aug, [facility] [address] [place] [address] Aug, [facility] [id number] [place] [address] Aug, [facility] [id number] [place] [address] Jul, Other chronic pain G89.29 [facility] [id number] [place] [address] Jul, [facility] [id number] [place] [address] Jun, Other chronic pain G89.29 [facility] [id number] [place] [address] Jun, [facility] [id number] [place] [address] Jun, [facility] [id number] [place] [address] Jun, Other chronic pain G89.29 [facility] [id number] [place] [address] Jun, [facility] [id number] [place] [address] May, Sweating abnormality L74.9 and Hot flashes R23.2 [facility] [id number] [place] [address] May, [facility] [id number] [place] [address] May, Other chronic pain G89.29 [facility] [id number] [place] [address] Apr, Other chronic pain G89.29 ; Mild intermittent asthma without complication J45.20 and Rash R21 [facility] [id number] [place] [address] Mar, Encounter to establish care Z76.89 ; Migraine with status migrainosus, not intractable, unspecified migraine type G43.901 ; Anxiety F41.9 and Moderate episode of recurrent major depressive disorder F33.1 IMMUNIZATIONS No Known Immunizations SOCIAL HISTORY Never Assessed REASON FOR VISIT Controlled Med Refill 12/06/17 PLAN OF CARE VITAL SIGNS MEDICATIONS Medication Instructions Dosage Frequency Start Date End Date Duration Status Hydrocodone-Acetaminophen 10-325 MG Orally 3 times a day 1 tablet 8h Dec, 28 days Active RESULTS No Results PROCEDURES No Known procedures INSTRUCTIONS MEDICATIONS ADMINISTERED No Known Medications MEDICAL (GENERAL) HISTORY Type Description Date Medical History Anxiety Medical History Major depressive disorder, single episode, unspecified Medical History Pain, unspecified Medical History asthma Surgical History cholecystectomy Surgical History section Surgical History partial hysterectomy Hospitalization History surgeries
--- OUTSIDE RECORDS SUMMARY | 2019-04-12 17:01 | XMS REPORT ---
Author Author PRINCE COHEN [facility] Address [address] [place] [address] Care Team Providers Care Hydroelectric Component Machinist Name Role Phone PRINCE COHEN Unavailable PROBLEMS Type Condition ICD9-CM Code [id number] Code Onset Dates Condition Status SNOMED Code Problem Moderate episode of recurrent major depressive disorder F33.1 Active 748928513 Problem Encounter to establish care Z76.89 Active 939424512 Problem Grief F43.20 Active 76596160 Problem Urinary incontinence without sensory awareness N39.42 Active 844645406 Problem Anxiety F41.9 Active 90253241 Problem Migraine with status migrainosus, not intractable, unspecified migraine type G43.901 Active 390419332 Problem Essential hypertension I10 Active 41804127 Problem Other chronic pain G89.29 Active 95939511 ALLERGIES No Information SOCIAL HISTORY Never Assessed PLAN OF CARE VITAL SIGNS MEDICATIONS Unknown Medications RESULTS No Results PROCEDURES No Known procedures IMMUNIZATIONS No Known Immunizations MEDICAL (GENERAL) HISTORY Type Description Date Medical History Anxiety Medical History Major depressive disorder, single episode, unspecified Medical History Pain, unspecified Medical History asthma Surgical History cholecystectomy Surgical History section Surgical History partial hysterectomy Hospitalization History surgeries
--- OUTSIDE RECORDS SUMMARY | 2019-04-12 17:01 | XMS REPORT ---
Author Author PRINCE COHEN Organization [facility] Address [address] [place] [address] Care Team Providers Care Drawer In Hand Name Role Phone PRINCE COHEN Unavailable PROBLEMS Type Condition ICD9-CM Code [id number] Code Onset Dates Condition Status SNOMED Code Problem Hypertriglyceridemia E78.1 Active 739525955 Problem Moderate episode of recurrent major depressive disorder F33.1 Active 878538162 Problem Encounter to establish care Z76.89 Active 247842310 Problem Grief F43.20 Active 10189762 Problem Urinary incontinence without sensory awareness N39.42 Active 432289580 Problem Anxiety F41.9 Active 62369927 Problem Migraine with status migrainosus, not intractable, unspecified migraine type G43.901 Active 071644537 Problem Essential hypertension I10 Active 33033632 Problem Other chronic pain G89.29 Active 74402707 ALLERGIES No Information ENCOUNTERS Encounter Location Date Diagnosis [place] [id number] [address] Mar, [facility] [address] [place] [address] [id number] [place] [address] Feb, Other chronic pain G89.29 [facility] [address] [id number] [place] [address] January, Other chronic pain G89.29 [facility] [id number] [place] [address] Dec, Other chronic pain G89.29 [facility] [address] [address] Dec, [facility] [address] [address] Dec, Essential hypertension I10 and Anxiety F41.9 [facility] [id number] [place] [address] Nov, Anxiety F41.9 ; Essential hypertension I10 ; Chronic prescription opiate use Z79.891 and BMI 50.0-59.9, adult Z68.43 [place] [address] [id number] [place] [address] Nov, Other chronic pain G89.29 [facility] [address] [address] Nov, Other chronic pain G89.29 [place] [address] [address] Oct, [place] [address] [address] Oct, [place] [address] [address] Oct, Essential hypertension I10 ; Encounter for immunization Z23 ; BMI 50.0-59.9, adult Z68.43 ; Other chronic pain G89.29 ; Tobacco use Z72.0 and Tobacco abuse counseling Z71.6 [place] [address] [place] [id number] [place] [address] Oct, Other chronic pain G89.29 [place] [address] [place] [id number] [place] [address] Sep, Other chronic pain G89.29 [place] [address] [place] [id number] [place] [address] Aug, Other chronic pain G89.29 [place] [address] [address] Jul, Other chronic pain G89.29 [place] [address] [place] [id number] [place] [address] Jun, Hypertriglyceridemia E78.1 [place] [address] [place] [id number] [place] [address] 16 Jun, 2017 Other chronic pain G89.29 ; Essential hypertension I10 and Anxiety F41.9 [place] [address] [place] [id number] [place] [address] 15 May, 2017 Other chronic pain G89.29 [place] [address] [place] [id number] [place] [address] Apr, Other chronic pain G89.29 [place] [address] [address] Mar, Grief F43.20 [place] [address] [address] Mar, Other chronic pain G89.29 [place] [address] [place] [id number] [place] [address] Feb, Other chronic pain G89.29 [place] [address] [place] [id number] [place] [address] Feb, Annual physical exam Z00.00 ; Acute right flank pain R10.9 ; Urinary incontinence without sensory awareness N39.42 ; Anxiety F41.9 and Essential hypertension I10 [place] [address] [place] [id number] [place] [address] January, Other chronic pain G89.29 [place] [address] [place] [id number] [place] [address] January, Other chronic pain G89.29 [place] [address] [place] [id number] [place] [address] January, [place] [address] [place] [id number] [place] [address] Dec, Essential hypertension I10 ; Anxiety F41.9 and Other chronic pain G89.29 [place] [address] [place] [id number] [place] [address] Nov, [place] [address] [place] [id number] [place] [address] Nov, Mild intermittent asthma without complication J45.20 [facility] [address] [address] Oct, [facility] [address] [address] Oct, [facility] [address] [address] Oct, [facility] [address] [address] Oct, Essential hypertension I10 ; Anxiety F41.9 and Rash R21 [place] [address] [address] Oct, [place] [address] [address] Oct, Allergic contact dermatitis, unspecified trigger L23.9 [place] [address] [place] [id number] [place] [address] Oct, [place] [address] [place] [id number] [place] [address] Sep, Anxiety F41.9 and Moderate episode of recurrent major depressive disorder F33.1 [place] [address] [address] Sep, Anxiety F41.9 and Essential hypertension I10 [place] [address] [place] [id number] [place] [address] Sep, [place] [address] [address] Aug, [facility] [address] [address] Aug, [facility] [address] [address] Aug, [facility] [id number] [place] [address] Jul, Other chronic pain G89.29 [facility] [address] [place] [address] Jul, [facility] [address] [place] [id number] [place] [address] Jun, Other chronic pain G89.29 [facility] [address] [place] [id number] [place] [address] Jun, [facility] [address] [place] [id number] [place] [address] Jun, [facility] [address] [place] [id number] [place] [address] Jun, Other chronic pain G89.29 [facility] [address] [place] [id number] [place] [address] Jun, [facility] [address] [place] [id number] [place] [address] 30 May, 2016 Sweating abnormality L74.9 and Hot flashes R23.2 [facility] [address] [place] [id number] [place] [address] May, [facility] [address] [place] [id number] [place] [address] May, Other chronic pain G89.29 [facility] [address] [place] [id number] [place] [address] Apr, Other chronic pain G89.29 ; Mild intermittent asthma without complication J45.20 and Rash R21 [facility] [address] [address] Mar, Encounter to establish care Z76.89 ; Migraine with status migrainosus, not intractable, unspecified migraine type G43.901 ; Anxiety F41.9 and Moderate episode of recurrent major depressive disorder F33.1 IMMUNIZATIONS No Known Immunizations SOCIAL HISTORY Never Assessed REASON FOR VISIT Controlled Med Refill 11/08/17 PLAN OF CARE VITAL SIGNS MEDICATIONS Medication Instructions Dosage Frequency Start Date End Date Duration Status Hydrocodone-Acetaminophen 10-325 MG Orally 3 times a day 1 tablet 8h Nov, 28 days Active RESULTS No Results PROCEDURES No Known procedures INSTRUCTIONS MEDICATIONS ADMINISTERED No Known Medications MEDICAL (GENERAL) HISTORY Type Description Date Medical History Anxiety Medical History Major depressive disorder, single episode, unspecified Medical History Pain, unspecified Medical History asthma Surgical History cholecystectomy Surgical History section Surgical History partial hysterectomy Hospitalization History surgeries
--- OUTSIDE RECORDS SUMMARY | 2019-04-12 17:01 | XMS REPORT ---
Author Author PRINCE COHEN Organization [employer] Address Unknown Phone Unavailable Care Team Providers Care Clinical Staff Rn Name Role Phone PRINCE COHEN CP Unavailable Allergies No Known Allergies Problems Problem Type Condition Code Onset Dates Condition Status Problem Encounter to establish care Z76.89 Active Problem Migraine with status migrainosus, not intractable, unspecified migraine type G43.901 Active Problem Other chronic pain G89.29 Active Assessment Other chronic pain G89.29 Active Problem Anxiety F41.9 Active Problem Moderate episode of recurrent major depressive disorder F33.1 Active Medications Medication Code System Code Instructions Start Date End Date Status Dosage Hydrocodone-Acetaminophen [facility] [address]-83 10-325 MG Orally 4 times a day 1 tablet as needed Procedures Procedure Coding System Code Date No Charge CPT-4 27713 Jun 24, 2016 DRUG SCREEN NON TLC DEVICES CPT-4 09087 Jun 24, 2016 Results Name Result Date Reference Range Unit Abnormality Flag URINE DRUG SCREEN (IN HOUSE) ----BUP NEGATIVE 20160624 ----TCA NEGATIVE 20160624 ----MDMA NEGATIVE 20160624 ----BENZO NEGATIVE 20160624 ----OPIATE NEGATIVE 20160624 ----THC NEGATIVE 20160624 ----MTD NEGATIVE 20160624 ----AMPH NEGATIVE 20160624 ----BAR NEGATIVE 20160624 ----PCP NEGATIVE 20160624 ----MAMP NEGATIVE 20160624 ----OXY NEGATIVE 20160624 ----Lot # [id number] ----Exp date [id number] ----Control + [id number] ----COCAINE NEGATIVE 20160624 Summary Purpose [employer] Submission
--- OUTSIDE RECORDS SUMMARY | 2019-04-12 17:01 | XMS REPORT ---
Author Author PRINCE COHEN Organization [facility] Address [address] [place] [address] Care Team Providers Care Etched Circuit Processor Name Role Phone PRINCE COHEN Unavailable PROBLEMS Type Condition ICD9-CM Code [id number] Code Onset Dates Condition Status SNOMED Code Problem Hypertriglyceridemia E78.1 Active 115628322 Problem Moderate episode of recurrent major depressive disorder F33.1 Active 007992884 Problem Encounter to establish care Z76.89 Active 458758190 Problem Grief F43.20 Active 72161274 Problem Urinary incontinence without sensory awareness N39.42 Active 034204278 Problem Anxiety F41.9 Active 78263937 Problem Migraine with status migrainosus, not intractable, unspecified migraine type G43.901 Active 762735946 Problem Essential hypertension I10 Active 86486186 Problem Other chronic pain G89.29 Active 76128300 ALLERGIES No Information ENCOUNTERS Encounter Location Date Diagnosis [place] [address] [address] Mar, Other chronic pain G89.29 [place] [address] [place] [id number] [place] [address] Feb, Other chronic pain G89.29 [facility] [address] [place] [address] [id number] [place] [address] January, Other chronic pain G89.29 [facility] [address] [place] [id number] [place] [address] Dec, Other chronic pain G89.29 [facility] [address] [place] [address] [id number] [place] [address] Dec, [place] [address] [address] Dec, Essential hypertension I10 and Anxiety F41.9 [facility] [address] [place] [address] [id number] [place] [address] Nov, Anxiety F41.9 ; Essential hypertension I10 ; Chronic prescription opiate use Z79.891 and BMI 50.0-59.9, adult Z68.43 [place] [address] [place] [id number] [place] [address] Nov, Other chronic pain G89.29 [place] [address] [address] Nov, Other chronic pain G89.29 [place] [address] [address] Oct, [place] [address] [address] Oct, [place] [address] [address] Oct, Encounter for immunization Z23 ; Essential hypertension I10 ; BMI 50.0-59.9, adult Z68.43 ; Other chronic pain G89.29 ; Tobacco use Z72.0 and Tobacco abuse counseling Z71.6 [place] [address] [place] [id number] [place] [address] Oct, Other chronic pain G89.29 [place] [address] [place] [id number] [place] [address] Sep, Other chronic pain G89.29 [place] [address] [place] [id number] [place] [address] Aug, Other chronic pain G89.29 [place] [address] [place] [id number] [place] [address] Jul, Other chronic pain G89.29 [place] [address] [place] [id number] [place] [address] Jun, Hypertriglyceridemia E78.1 [place] [address] [place] [address] 16 Jun, 2017 Other chronic pain G89.29 ; Essential hypertension I10 and Anxiety F41.9 [facility] [address] [place] [address] [id number] [place] [address] 15 May, 2017 Other chronic pain G89.29 [facility] [address] [place] [id number] [place] [address] Apr, Other chronic pain G89.29 [place] [address] [place] [id number] [place] [address] Mar, Grief F43.20 [place] [address] [place] [id number] [place] [address] Mar, Other chronic pain G89.29 [place] [address] [place] [id number] [place] [address] Feb, Other chronic pain G89.29 [facility] [address] [place] [id number] [place] [address] Feb, Annual physical exam Z00.00 ; Acute right flank pain R10.9 ; Urinary incontinence without sensory awareness N39.42 ; Anxiety F41.9 and Essential hypertension I10 [place] [address] [place] [id number] [place] [address] January, Other chronic pain G89.29 [place] [address] [place] [id number] [place] [address] January, Other chronic pain G89.29 [facility] [address] [place] [id number] [place] [address] January, [facility] [address] [place] [id number] [place] [address] Dec, Essential hypertension I10 ; Anxiety F41.9 and Other chronic pain G89.29 [place] [address] [place] [id number] [place] [address] Nov, [facility] [address] [place] [id number] [place] [address] Nov, Mild intermittent asthma without complication J45.20 [facility] [address] [place] [id number] [place] [address] Oct, [facility] [address] [place] [address] [id number] [place] [address] Oct, [facility] [address] [address] Oct, [facility] [address] [address] Oct, Essential hypertension I10 ; Anxiety F41.9 and Rash R21 [place] [address] [address] Oct, [facility] [address] [address] Oct, Allergic contact dermatitis, unspecified trigger L23.9 [facility] [address] [place] [address] [id number] [place] [address] Oct, [facility] [address] [place] [id number] [place] [address] Sep, Anxiety F41.9 and Moderate episode of recurrent major depressive disorder F33.1 [facility] [address] [place] [id number] [place] [address] Sep, Anxiety F41.9 and Essential hypertension I10 [facility] [address] [place] [id number] [place] [address] Sep, [facility] [address] [address] Aug, [facility] [address] [place] [id number] [place] [address] Aug, [facility] [address] [place] [address] Aug, [facility] [address] [place] [address] [id number] [place] [address] Jul, Other chronic pain G89.29 [facility] [address] [place] [id number] [place] [address] Jul, [facility] [address] [place] [address] [id number] [place] [address] Jun, Other chronic pain G89.29 [facility] [address] [place] [address] [id number] [place] [address] Jun, [facility] [address] [place] [address] [id number] [place] [address] Jun, [facility] [address] [place] [address] [id number] [place] [address] Jun, Other chronic pain G89.29 [facility] [address] [place] [address] [id number] [place] [address] Jun, [facility] [address] [place] [address] [id number] [place] [address] 30 May, 2016 Sweating abnormality L74.9 and Hot flashes R23.2 [facility] [address] [place] [address] May, [facility] [address] [place] [address] May, Other chronic pain G89.29 [facility] [address] [place] [address] Apr, Other chronic pain G89.29 ; Mild intermittent asthma without complication J45.20 and Rash R21 [facility] [address] [address] Mar, Encounter to establish care Z76.89 ; Migraine with status migrainosus, not intractable, unspecified migraine type G43.901 ; Anxiety F41.9 and Moderate episode of recurrent major depressive disorder F33.1 IMMUNIZATIONS No Known Immunizations SOCIAL HISTORY Never Assessed REASON FOR VISIT Controlled Med Refill 01/03/18 PLAN OF CARE VITAL SIGNS MEDICATIONS Medication [...]
--- OUTSIDE RECORDS SUMMARY | 2019-04-12 17:01 | XMS REPORT ---
Author Author PRINCE COHEN Organization [facility] Address [address] [place] [address] Care Team Providers Care Digital Communications Manager Name Role Phone PRINCE COHEN Unavailable PROBLEMS Type Condition ICD9-CM Code [id number] Code Onset Dates Condition Status SNOMED Code Problem Hypertriglyceridemia E78.1 Active 763086198 Problem Moderate episode of recurrent major depressive disorder F33.1 Active 367249754 Problem Encounter to establish care Z76.89 Active 221358114 Problem Grief F43.20 Active 13020042 Problem Urinary incontinence without sensory awareness N39.42 Active 535022861 Problem Anxiety F41.9 Active 29035042 Problem Migraine with status migrainosus, not intractable, unspecified migraine type G43.901 Active 557273889 Problem Essential hypertension I10 Active 59521909 Problem Other chronic pain G89.29 Active 50303137 ALLERGIES No Information ENCOUNTERS Encounter Location Date Diagnosis [place] [address] [address] Mar, Other chronic pain G89.29 [place] [address] [place] [id number] [place] [address] Feb, Other chronic pain G89.29 [facility] [address] [place] [id number] [place] [address] January, Other chronic pain G89.29 [facility] [address] [place] [id number] [place] [address] Dec, Other chronic pain G89.29 [facility] [address] [place] [id number] [place] [address] Dec, [place] [address] [address] Dec, Essential hypertension I10 and Anxiety F41.9 [facility] [address] [place] [id number] [place] [address] Nov, Anxiety F41.9 ; Essential hypertension I10 ; Chronic prescription opiate use Z79.891 and BMI 50.0-59.9, adult Z68.43 [place] [address] [place] [id number] [place] [address] Nov, Other chronic pain G89.29 [place] [address] [address] Nov, Other chronic pain G89.29 [place] [address] [address] Oct, [place] [address] [address] Oct, [place] [address] [address] Oct, Essential hypertension I10 ; Encounter for immunization Z23 ; BMI 50.0-59.9, adult Z68.43 ; Other chronic pain G89.29 ; Tobacco use Z72.0 and Tobacco abuse counseling Z71.6 [place] [address] [place] [id number] [place] [address] Oct, Other chronic pain G89.29 [place] [address] [place] [id number] [place] [address] Sep, Other chronic pain G89.29 [place] [address] [place] [id number] [place] [address] Aug, Other chronic pain G89.29 [place] [address] [place] [id number] [place] [address] Jul, Other chronic pain G89.29 [place] [address] [place] [id number] [place] [address] Jun, Hypertriglyceridemia E78.1 [place] [address] [place] [address] 16 Jun, 2017 Other chronic pain G89.29 ; Essential hypertension I10 and Anxiety F41.9 [facility] [address] [place] [id number] [place] [address] 15 May, 2017 Other chronic pain G89.29 [facility] [address] [place] [id number] [place] [address] Apr, Other chronic pain G89.29 [place] [address] [place] [id number] [place] [address] Mar, Grief F43.20 [place] [address] [place] [id number] [place] [address] Mar, Other chronic pain G89.29 [place] [address] [place] [id number] [place] [address] Feb, Other chronic pain G89.29 [facility] [address] [place] [id number] [place] [address] Feb, Annual physical exam Z00.00 ; Acute right flank pain R10.9 ; Urinary incontinence without sensory awareness N39.42 ; Anxiety F41.9 and Essential hypertension I10 [place] [address] [place] [id number] [place] [address] January, Other chronic pain G89.29 [place] [address] [place] [id number] [place] [address] January, Other chronic pain G89.29 [facility] [address] [place] [id number] [place] [address] January, [facility] [address] [place] [id number] [place] [address] Dec, Essential hypertension I10 ; Anxiety F41.9 and Other chronic pain G89.29 [place] [address] [place] [id number] [place] [address] Nov, [facility] [address] [place] [id number] [place] [address] Nov, Mild intermittent asthma without complication J45.20 [facility] [address] [place] [id number] [place] [address] Oct, [facility] [address] [place] [id number] [place] [address] Oct, [facility] [address] [address] Oct, [facility] [address] [address] Oct, Essential hypertension I10 ; Anxiety F41.9 and Rash R21 [place] [address] [address] Oct, [facility] [address] [address] Oct, Allergic contact dermatitis, unspecified trigger L23.9 [facility] [address] [place] [id number] [place] [address] Oct, [facility] [address] [place] [id number] [place] [address] Sep, Anxiety F41.9 and Moderate episode of recurrent major depressive disorder F33.1 [facility] [address] [place] [id number] [place] [address] Sep, Anxiety F41.9 and Essential hypertension I10 [facility] [address] [place] [id number] [place] [address] Sep, [facility] [address] [address] Aug, [facility] [address] [place] [id number] [place] [address] Aug, [facility] [address] [place] [address] Aug, [facility] [address] [place] [id number] [place] [address] Jul, Other chronic pain G89.29 [facility] [address] [place] [id number] [place] [address] Jul, [facility] [address] [place] [id number] [place] [address] Jun, Other chronic pain G89.29 [facility] [address] [place] [id number] [place] [address] Jun, [facility] [address] [place] [id number] [place] [address] Jun, [facility] [address] [place] [id number] [place] [address] Jun, Other chronic pain G89.29 [facility] [address] [place] [id number] [place] [address] Jun, [facility] [address] [place] [id number] [place] [address] 30 May, 2016 Sweating abnormality L74.9 and Hot flashes R23.2 [facility] [address] [place] [address] May, [facility] [address] [place] [address] May, Other chronic pain G89.29 [facility] [address] [place] [address] Apr, Other chronic pain G89.29 ; Mild intermittent asthma without complication J45.20 and Rash R21 [facility] [address] [address] Mar, Encounter to establish care Z76.89 ; Migraine with status migrainosus, not intractable, unspecified migraine type G43.901 ; Anxiety F41.9 and Moderate episode of recurrent major depressive disorder F33.1 IMMUNIZATIONS No Known Immunizations SOCIAL HISTORY Never Assessed REASON FOR VISIT Refill request PLAN OF CARE VITAL SIGNS MEDICATIONS Unknown [...]
--- OUTSIDE RECORDS SUMMARY | 2019-04-12 17:01 | XMS REPORT ---
Author Author PRINCE COHEN [facility] Address [address] [place] [address] Care Team Providers Care Clinical Nurse Manager Name Role Phone PRINCE COHEN Unavailable PROBLEMS Type Condition ICD9-CM Code XQY92-DJ Code Onset Dates Condition Status SNOMED Code Assessment Rash R21 Apr, Active 351535749 Problem Encounter to establish care Z76.89 Active 599970196 Problem Migraine with status migrainosus, not intractable, unspecified migraine type G43.901 Active 617731700 Assessment Other chronic pain G89.29 Apr, Active 01788549 Assessment Mild intermittent asthma without complication J45.20 Apr, Active 562761205 Problem Anxiety F41.9 Active 05252951 Problem Moderate episode of recurrent major depressive disorder F33.1 Active 706455014 ALLERGIES Substance Reaction Event Type Date Status N.K.D.A. Unknown Non Drug Allergy Apr, Unknown SOCIAL HISTORY No smoking Hx information available PLAN OF CARE VITAL SIGNS Height 53 in 2016-04-27 Weight 226.5 lbs 2016-04-27 Heart Rate 82 bpm 2016-04-27 Respiratory Rate 18 2016-04-27 BMI 56.69 kg/m2 2016-04-27 Blood pressure systolic 172 mmHg 2016-04-27 Blood pressure diastolic 89 mmHg 2016-04-27 MEDICATIONS Medication Instructions Dosage Frequency Start Date End Date Duration Status Depakote 250 MG Orally Twice a day 1 tablet 12h Mar, Active Hydrocodone-Acetaminophen 10-325 MG Orally 4 times a day 1 tablet as needed 6h Active Alprazolam 1 MG Orally Twice a day 1 tablet 12h Active Symbicort 160-4.5 MCG/ACT Inhalation Twice a day 2 puffs 12h Active Ventolin HFA 108 (90 Base) MCG/ACT Inhalation every 4 hrs 2 puffs as needed 4h Active Keflex 500 MG Orally 3 times a day 1 capsule 8h Apr, Apr, 07 days Active Zoloft 100 MG Orally Once a day 1 tablet 24h Active RESULTS No Results PROCEDURES Procedure Date Ordered Related Diagnosis Body Site Office Visit, Est Pt., Level 3 Apr 27, 2016 IMMUNIZATIONS No Known Immunizations
--- OUTSIDE RECORDS SUMMARY | 2019-04-12 17:01 | XMS REPORT ---
Author Author PRINCE COHEN Organization [facility] Address [address] [place] [address] Care Team Providers Care Digital Associate Name Role Phone PRINCE COHEN Unavailable PROBLEMS Type Condition ICD9-CM Code HWX28-ON Code Onset Dates Condition Status SNOMED Code Problem Moderate episode of recurrent major depressive disorder F33.1 Active 101158143 Problem Encounter to establish care Z76.89 Active 036360413 Problem Grief F43.20 Active 91012511 Problem Urinary incontinence without sensory awareness N39.42 Active 466357215 Problem Anxiety F41.9 Active 09915792 Problem Migraine with status migrainosus, not intractable, unspecified migraine type G43.901 Active 898007374 Problem Essential hypertension I10 Active 15235138 Problem Other chronic pain G89.29 Active 77218112 ALLERGIES No Information SOCIAL HISTORY Never Assessed PLAN OF CARE VITAL SIGNS MEDICATIONS Medication Instructions Dosage Frequency Start Date End Date Duration Status Hydrocodone-Acetaminophen 10-325 MG Orally every 6 hrs 1 tablet 6h Nov, 12 days Active RESULTS No Results PROCEDURES No Known procedures IMMUNIZATIONS No Known Immunizations MEDICAL (GENERAL) HISTORY Type Description Date Medical History Anxiety Medical History Major depressive disorder, single episode, unspecified Medical History Pain, unspecified Medical History asthma Surgical History cholecystectomy Surgical History section Surgical History partial hysterectomy Hospitalization History surgeries
--- OUTSIDE RECORDS SUMMARY | 2019-04-12 17:01 | XMS REPORT ---
Author Author PRINCE COHEN [facility] [employer] Address Unknown Phone Unavailable Care Team Providers Care Ad Terminal Makeup Operator Name Role Phone PRINCE COHEN CP Unavailable Allergies, Adverse Reactions, Alerts Substance Reaction Event Type N.K.D.A. Info Not Available Non Drug Allergy Problems Problem Type Condition Code Onset Dates Condition Status Assessment Moderate episode of recurrent major depressive disorder F33.1 Active Problem Migraine with status migrainosus, not intractable, unspecified migraine type G43.901 Active Problem Anxiety F41.9 Active Problem Encounter to establish care Z76.89 Active Assessment Migraine with status migrainosus, not intractable, unspecified migraine type G43.901 Active Assessment Anxiety F41.9 Active Problem Moderate episode of recurrent major depressive disorder F33.1 Active Assessment Encounter to establish care Z76.89 Active Medications Medication Code System Code Instructions Start Date End Date Status Dosage Hydrocodone-Acetaminophen [facility] [address]-90 10-325 MG Orally 4 times a day 1 tablet as needed Alprazolam [facility] [address]-34 1 MG Orally Twice a day 1 tablet Ventolin HFA [facility] [address]-09 108 (90 Base) MCG/ACT Inhalation every 4 hrs 2 puffs as needed Oxycodone HCl [facility] [address]-00 5 MG Orally every 6 hrs 1 tablet Zoloft [facility] [address]-17 100 MG Orally Once a day 1 tablet Symbicort [facility] [address]-39 160-4.5 MCG/ACT Inhalation Twice a day 2 puffs Depakote [facility] [address]-08 250 MG Orally Twice a day March 30, 2016 1 tablet Procedures Procedure Coding System Code Date Office Visit, New Pt., Level 3 CPT-4 20258 March 30, 2016 Vital Signs Date/Time: March 30, 2016 Cardiac Monitoring Heart Rate 76 bpm Weight 222.3 lbs Height 53 in BMI 55.63 Index Blood Pressure Diastolic 92 mmHg Blood Pressure Systolic 162 mmHg Results No Known Results Summary Purpose eClinicalWorks Submission
--- OUTSIDE RECORDS SUMMARY | 2019-04-12 17:02 | XMS REPORT ---
Author INDIGO [facility] e[employer] Address Unknown Phone Unavailable Care Team Providers Care Bottle Carrier Name Role Phone INDIGO MON[place]ÑO CP Unavailable Allergies, Adverse Reactions, Alerts Substance Reaction Event Type N.K.D.A. Info Not Available Non Drug Allergy Problems Problem Type Condition Code Onset Dates Condition Status Problem Migraine with status migrainosus, not intractable, unspecified migraine type G43.901 Active Problem Anxiety F41.9 Active Problem Encounter to establish care Z76.89 Active Assessment Hot flashes R23.2 Active Problem Moderate episode of recurrent major depressive disorder F33.1 Active Assessment Sweating abnormality L74.9 Active Medications Medication Code System Code Instructions Start Date End Date Status Dosage Alprazolam [facility] [address]-92 1 MG Orally Twice a day 1 tablet Hydrocodone-Acetaminophen [facility] [address]-46 10-325 MG Orally 4 times a day 1 tablet as needed Ventolin HFA [facility] [address]-50 108 (90 Base) MCG/ACT Inhalation every 4 hrs 2 puffs as needed Symbicort [facility] [address]-54 160-4.5 MCG/ACT Inhalation Twice a day 2 puffs Procedures Procedure Coding System Code Date Office Visit, Est Pt., Level 3 CPT-4 13165 Jun 05, 2016 VENIPUNCT, ROUTINE* CPT-4 57403 Jun 05, 2016 CHEST X-RAY CPT-4 96912 Jun 05, 2016 URINALYSIS, AUTO, W/O SCOPE CPT-4 47128 Jun 05, 2016 C-REACTIVE PROTEIN CPT-4 93466 Jun 05, 2016 COMPLETE CBC W/AUTO DIFF WBC CPT-4 82815 Jun 05, 2016 DRUG SCREEN NON TLC DEVICES CPT-4 73819 Jun 05, 2016 COMPREHEN METABOLIC PANEL CPT-4 59213 Jun 05, 2016 Vital Signs Date/Time: Jun 05, 2016 Cardiac Monitoring Heart Rate 96 bpm Weight 226.7 lbs Height 53 in BMI 56.74 Index Blood Pressure Diastolic 110 mmHg Blood Pressure Systolic 164 mmHg Results Name Result Date Reference Range Unit Abnormality Flag CRP ----C-Reactive Protein, Quant 5.5 [id number] 0.0-4.9 mg/L H CMP ----Globulin, Total 2.9 22958126 1.5-4.5 g/dL ----eGFR If Africn Am 106 56105100 >59 mL/min/1.73 ----eGFR If NonAfricn Am 92 33938030 >59 mL/min/1.73 ----Albumin, Serum 4.3 08270950 3.5-5.5 g/dL ----Sodium, Serum 143 02527671 134-144 mmol/L ----Protein, Total, Serum 7.2 12776613 6.0-8.5 g/dL ----BUN/Creatinine Ratio 11 71420212 8-20 ----Calcium, Serum 9.5 41374954 8.7-10.2 mg/dL ----AST (SGOT) 28 27629020 0-40 IU/L ----Glucose, Serum 109 25006988 65-99 mg/dL H ----Alkaline Phosphatase, S 85 17668803 39-117 IU/L ----Bilirubin, Total 0.2 28760876 0.0-1.2 mg/dL ----Creatinine, Serum 0.81 21858823 0.57-1.00 mg/dL ----A/G Ratio 1.5 56346868 1.1-2.5 ----BUN 9 21620910 6-20 mg/dL ----Carbon Dioxide, Total 26 68698224 18-29 mmol/L ----ALT (SGPT) 35 56056611 0-32 IU/L H ----Potassium, Serum 4.3 87916087 3.5-5.2 mmol/L ----Chloride, Serum 102 78439320 97-108 mmol/L ROUTINE VENIPUNCTURE CBC ----MCHC 35.0 54104587 31.5-35.7 g/dL ----MCH 31.1 24204331 26.6-33.0 pg ----Platelets 283 30832456 150-379 x10E3/uL ----RDW 12.9 35363438 12.3-15.4 % ----Immature Granulocytes 0 39851751 % ----Immature Grans (Abs) 0.0 34874509 0.0-0.1 x10E3/uL ----Lymphs 25 06188364 % ----Monocytes 7 25493471 % ----Neutrophils 67 58688488 % ----Neutrophils (Absolute) 6.1 54709987 1.4-7.0 x10E3/uL ----Hematocrit 43.1 87632086 34.0-46.6 % ----Lymphs (Absolute) 2.3 83830925 0.7-3.1 x10E3/uL ----MCV 89 98206516 79-97 fL ----RBC 4.85 72311354 3.77-5.28 x10E6/uL ----Eos 1 41178386 % ----Basos 0 76074570 % ----Hemoglobin 15.1 81223231 11.1-15.9 g/dL ----Baso (Absolute) 0.0 02548431 0.0-0.2 x10E3/uL ----WBC 9.2 08436824 3.4-10.8 x10E3/uL ----Monocytes(Absolute) 0.7 65404809 0.1-0.9 x10E3/uL ----Eos (Absolute) 0.1 51179070 0.0-0.4 x10E3/uL UA LONG DIP (IN HOUSE) Xray : Chest (IN HOUSE) URINE DRUG SCREEN (IN HOUSE) Summary Purpose eClinicalWorks Submission
--- OUTSIDE RECORDS SUMMARY | 2019-04-12 17:02 | XMS REPORT ---
Author Author PRINCE COHEN Organization [facility] Address [address] [place] [address] Care Team Providers Care Mechanical Integrity Specialist Name Role Phone PRINCE COHEN Unavailable PROBLEMS Type Condition ICD9-CM Code EKS97-[id number] Code Onset Dates Condition Status SNOMED Code Problem Hypertriglyceridemia E78.1 Active 788883923 Problem Moderate episode of recurrent major depressive disorder F33.1 Active 302342532 Problem Encounter to establish care Z76.89 Active 569177823 Problem Grief F43.20 Active 01056734 Problem Urinary incontinence without sensory awareness N39.42 Active 299808603 Problem Anxiety F41.9 Active 28606768 Problem Migraine with status migrainosus, not intractable, unspecified migraine type G43.901 Active 690588497 Problem Essential hypertension I10 Active 01504232 Problem Other chronic pain G89.29 Active 66316134 ALLERGIES Substance Reaction Event Type Date Status Latex Unknown Drug Allergy Feb, Active Quinapril HCl flu like symptoms Drug Allergy Feb, Active Aspirin swelling Drug Allergy Feb, Active ENCOUNTERS Encounter Location Date Diagnosis [place] [id number], [place] [address] Nov, [facility] [id number] [place] [address] Nov, Other chronic pain G89.29 [facility] [address], [place] [address] Oct, [facility] [address] [place] [id number] [place] [address] Oct, [facility] [id number] [place] [address] Oct, Essential hypertension I10 ; Encounter for immunization Z23 ; BMI 50.0-59.9, adult Z68.43 ; Other chronic pain G89.29 ; Tobacco use Z72.0 and Tobacco abuse counseling Z71.6 [facility] [address] [address] Oct, Other chronic pain G89.29 [place] [address] [address] Sep, Other chronic pain G89.29 [place] [address] [address] Aug, Other chronic pain G89.29 [place] [address] [address] Jul, Other chronic pain G89.29 [place] [address] [address] Jun, Hypertriglyceridemia E78.1 [place] [address] [address] Jun, Other chronic pain G89.29 ; Essential hypertension I10 and Anxiety F41.9 [place] [address] [address] May, Other chronic pain G89.29 [place] [address] [address] Apr, Other chronic pain G89.29 [place] [address] [place] [id number] [place] [address] Mar, Grief F43.20 [place] [address] [address] Mar, Other chronic pain G89.29 [place] [address] [address] Feb, Other chronic pain G89.29 [place] [address] [address] Feb, Annual physical exam Z00.00 ; Acute right flank pain R10.9 ; Urinary incontinence without sensory awareness N39.42 ; Anxiety F41.9 and Essential hypertension I10 [facility] [address] [address] January, Other chronic pain G89.29 [facility] [address] [address] January, Other chronic pain G89.29 [facility] [address] [address] January, [facility] [address] [address] Dec, Essential hypertension I10 ; Anxiety F41.9 and Other chronic pain G89.29 [facility] [address] [address] Nov, [facility] [address] [address] Nov, Mild intermittent asthma without complication J45.20 [facility] [address] [address] Oct, [facility] [id number] [place] [address] Oct, [facility] [address] [address] Oct, [facility] [address] [address] Oct, Essential hypertension I10 ; Anxiety F41.9 and Rash R21 [facility] [address] [address] Oct, [facility] [address] [address] Oct, Allergic contact dermatitis, unspecified trigger L23.9 [facility] [address] [facility] [id number] [address] Oct, [facility] [id number] [place] [address] Sep, Anxiety F41.9 and Moderate episode of recurrent major depressive disorder F33.1 [facility] [address] [address] [id number] [place] [address] Sep, Anxiety F41.9 and Essential hypertension I10 [facility] [address] [facility] [id number] [place] [address] Sep, [facility] [id number] [place] [address] Aug, [facility] [address] [address] [id number] [place] [address] Aug, [facility] [address] [address] [id number] [place] [address] Aug, [facility] [address] [place] [address] Jul, Other chronic pain G89.29 [facility] [address] [place] [id number] [place] [address] Jul, [facility] [address] [place] [address] Jun, Other chronic pain G89.29 [facility] [address] [place] [id number] [place] [address] Jun, [facility] [address] [facility] [id number] [place] [address] Jun, [facility] [address] [place] [address] Jun, Other chronic pain G89.29 [facility] [address], [place] [address] Jun, [place] [address] [place] [id number] [address] 30 May, 2016 Sweating abnormality L74.9 and Hot flashes R23.2 [place] [address], [place] [address] May, [place] [address] [place] [address] May, Other chronic pain G89.29 [place] [address] [place] [address] Apr, Other chronic pain G89.29 ; Mild intermittent asthma without complication J45.20 and Rash R21 [address] [place] [address] Mar, Encounter to establish care Z76.89 ; Migraine with status migrainosus, not intractable, unspecified migraine type G43.901 ; Anxiety F41.9 and Moderate episode of recurrent major depressive disorder F33.1 IMMUNIZATIONS No Known Immunizations SOCIAL HISTORY Never Assessed REASON FOR VISIT Annual physical (female) - 2 Months ago was standing on the tailgate of a truck and was unloading items and slipped off the tailgate and landed on her back onto a broken pallet with nails sticking up out of it. She has had a hysterectomy a bout 3-4 years ago and has not had a PAP in about 14 years. She is having pelvi c pain and can not hold her urine anymore. Has hard spots around anus and on he r labia and they pop leaking pus has one on her right buttock right now. She st ates they do not necessarily burn or itch they are just painful. - Ana Cristina MILLAN PLAN OF CARE Activity Details Follow Up 3 Months Reason:pain mgmt VITAL SIGNS Height 53 in 2017-02-22 Weight 225.6 lbs 2017-02-22 Temperature 98.5 degrees Fahrenheit 2017-02-22 Heart Rate 104 bpm 2017-02-22 Respiratory Rate 22 2017-02-22 BMI 56.46 kg/m2 2017-02-22 Blood pressure systolic 190 mmHg 2017-02-22 Blood pressure diastolic 140 mmHg 2017-02-22 MEDICATIONS Medication Instructions Dosage Frequency Start Date End Date Duration Status Ventolin HFA 108 (90 Base) MCG/ACT Inhalation every 4 hrs 2 puffs as needed 4h Active Zoloft 100 mg Orally Once a day 1 tablet 24h Active HydrOXYzine HCl 25 MG Orally every 6 hrs 1 tablet 6h Oct, 30 day(s) Active Toprol XL 50 mg Orally 2 times a day 1 tablet 12h Dec, Active Detrol LA 4 MG Orally Once a day 1 capsule 24h Feb, Active Hydrocodone-Acetaminophen 10-325 MG Orally 3 times a day 1 tablet 8h January, 28 days Active Symbicort 160-4.5 MCG/ACT Inhalation Twice a day 2 puffs 12h Active RESULTS Name Result Date Reference Range UA LONG DIP (IN HOUSE) 2017-02-22 Lot # [id number] Exp date 04/2017 Clarity clear Color yellow Odor None GLU Negative JUAN 1+ KET trace SG 1.030 BLO 1+ pH 5.5 Protein 1+ URO 0.2 NIT Negative ANDERSON Negative Lot # Exp date PROCEDURES Procedure Date Ordered Result Body Site URINALYSIS, AUTO, W/O SCOPE February 22, 2017 INSTRUCTIONS MEDICATIONS ADMINISTERED No Known Medications MEDICAL (GENERAL) HISTORY Type Description Date Medical History Anxiety Medical History Major depressive disorder, single episode, unspecified Medical History Pain, unspecified Medical History asthma Surgical History cholecystectomy Surgical History section Surgical History partial hysterectomy Hospitalization History surgeries
--- OUTSIDE RECORDS SUMMARY | 2019-04-12 17:02 | XMS REPORT ---
Author Author PRINCE COHEN Organization [facility] Address [address] [place] [address] Care Team Providers Care Folding Machine Tender Name Role Phone PRINCE COHEN Unavailable PROBLEMS Type Condition ICD9-CM Code ATW78-PY Code Onset Dates Condition Status SNOMED Code Problem Hypertriglyceridemia E78.1 Active 505125707 Problem Moderate episode of recurrent major depressive disorder F33.1 Active 201850191 Problem Encounter to establish care Z76.89 Active 875212057 Problem Grief F43.20 Active 13637389 Problem Urinary incontinence without sensory awareness N39.42 Active 777886713 Problem Anxiety F41.9 Active 46919086 Problem Migraine with status migrainosus, not intractable, unspecified migraine type G43.901 Active 142259703 Problem Essential hypertension I10 Active 18832496 Problem Other chronic pain G89.29 Active 58025591 ALLERGIES No Information ENCOUNTERS Encounter Location Date Diagnosis [place] [id number] [address] Mar, [facility] [address] [place] [id number] [place] [address] Feb, Other chronic pain G89.29 [facility] [address] [place] [address] [id number] [place] [address] January, Other chronic pain G89.29 [facility] [address] [place] [id number] [place] [address] Dec, Other chronic pain G89.29 [facility] [address] [address] Dec, [facility] [address] [address] Dec, Essential hypertension I10 and Anxiety F41.9 [facility] [address] [address] [id number] [place] [address] Nov, Anxiety F41.9 ; Essential hypertension I10 ; Chronic prescription opiate use Z79.891 and BMI 50.0-59.9, adult Z68.43 [place] [address] [place] [id number] [place] [address] Nov, Other chronic pain G89.29 [facility] [address] [address] Nov, Other chronic pain G89.29 [place] [address] [address] Oct, [place] [address] [address] Oct, [place] [address] [address] Oct, Essential hypertension I10 ; Encounter for immunization Z23 ; BMI 50.0-59.9, adult Z68.43 ; Other chronic pain G89.29 ; Tobacco use Z72.0 and Tobacco abuse counseling Z71.6 [place] [address] [place] [id number] [place] [address] Oct, Other chronic pain G89.29 [place] [address] [place] [id number] [place] [address] Sep, Other chronic pain G89.29 [place] [address] [place] [id number] [place] [address] Aug, Other chronic pain G89.29 [place] [address] [address] Jul, Other chronic pain G89.29 [place] [address] [place] [id number] [place] [address] Jun, Hypertriglyceridemia E78.1 [place] [address] [place] [id number] [place] [address] 16 Jun, 2017 Other chronic pain G89.29 ; Essential hypertension I10 and Anxiety F41.9 [place] [address] [place] [id number] [place] [address] 15 May, 2017 Other chronic pain G89.29 [place] [address] [place] [id number] [place] [address] Apr, Other chronic pain G89.29 [place] [address] [address] Mar, Grief F43.20 [place] [address] [address] Mar, Other chronic pain G89.29 [place] [address] [place] [id number] [place] [address] Feb, Other chronic pain G89.29 [place] [address] [place] [id number] [place] [address] Feb, Annual physical exam Z00.00 ; Acute right flank pain R10.9 ; Urinary incontinence without sensory awareness N39.42 ; Anxiety F41.9 and Essential hypertension I10 [place] [address] [place] [id number] [place] [address] January, Other chronic pain G89.29 [place] [address] [place] [id number] [place] [address] January, Other chronic pain G89.29 [place] [address] [place] [id number] [place] [address] January, [place] [address] [place] [id number] [place] [address] Dec, Essential hypertension I10 ; Anxiety F41.9 and Other chronic pain G89.29 [place] [address] [place] [id number] [place] [address] Nov, [place] [address] [place] [id number] [place] [address] Nov, Mild intermittent asthma without complication J45.20 [facility] [address] [address] Oct, [facility] [address] [address] Oct, [facility] [address] [address] Oct, [facility] [address] [address] Oct, Essential hypertension I10 ; Anxiety F41.9 and Rash R21 [place] [address] [address] Oct, [place] [address] [address] Oct, Allergic contact dermatitis, unspecified trigger L23.9 [place] [address] [place] [id number] [place] [address] Oct, [place] [address] [place] [id number] [place] [address] Sep, Anxiety F41.9 and Moderate episode of recurrent major depressive disorder F33.1 [place] [address] [address] Sep, Anxiety F41.9 and Essential hypertension I10 [place] [address] [place] [id number] [place] [address] Sep, [place] [address] [address] Aug, [facility] [address] [address] Aug, [facility] [address] [address] Aug, [facility] [address] [place] [address] Jul, Other chronic pain G89.29 [facility] [address] [place] [address] Jul, [facility] [address] [place] [id number] [place] [address] Jun, Other chronic pain G89.29 [facility] [address] [place] [id number] [place] [address] Jun, [facility] [address] [place] [id number] [place] [address] Jun, [facility] [address] [place] [id number] [place] [address] Jun, Other chronic pain G89.29 [facility] [address] [place] [id number] [place] [address] Jun, [facility] [address] [place] [id number] [place] [address] 30 May, 2016 Sweating abnormality L74.9 and Hot flashes R23.2 [facility] [address] [place] [id number] [place] [address] May, [facility] [address] [place] [id number] [place] [address] May, Other chronic pain G89.29 [facility] [address] [place] [id number] [place] [address] Apr, Other chronic pain G89.29 ; Mild intermittent asthma without complication J45.20 and Rash R21 [facility] [address] [address] Mar, Encounter to establish care Z76.89 ; Migraine with status migrainosus, not intractable, unspecified migraine type G43.901 ; Anxiety F41.9 and Moderate episode of recurrent major depressive disorder F33.1 IMMUNIZATIONS No Known Immunizations SOCIAL HISTORY Never Assessed REASON FOR VISIT medication questions PLAN OF CARE VITAL SIGNS MEDICATIONS Unknown [...]
--- OUTSIDE RECORDS SUMMARY | 2019-04-12 17:02 | XMS REPORT ---
Author Author PRINCE COHEN [facility] Address [address] [place] [address] Care Team Providers Care Rn Cardiovascular Name Role Phone PRINCE COHEN Unavailable PROBLEMS Type Condition ICD9-CM Code AOQ44-HE Code Onset Dates Condition Status SNOMED Code Problem Moderate episode of recurrent major depressive disorder F33.1 Active 972939950 Problem Encounter to establish care Z76.89 Active 802014850 Problem Grief F43.20 Active 55863781 Problem Urinary incontinence without sensory awareness N39.42 Active 201697366 Problem Anxiety F41.9 Active 33796104 Problem Migraine with status migrainosus, not intractable, unspecified migraine type G43.901 Active 898260760 Problem Essential hypertension I10 Active 80516825 Problem Other chronic pain G89.29 Active 44482594 ALLERGIES Substance Reaction Event Type Date Status Latex Unknown Drug Allergy Oct, Active Aspirin swelling Drug Allergy Oct, Active SOCIAL HISTORY Never Assessed PLAN OF CARE Activity Details Follow Up 2 Weeks Reason:hypertension VITAL SIGNS Height 53 in 2016-10-22 Weight 224.9 lbs 2016-10-22 Temperature 98.3 degrees Fahrenheit 2016-10-22 Heart Rate 88 bpm 2016-10-22 Respiratory Rate 20 2016-10-22 BMI 56.29 kg/m2 2016-10-22 Blood pressure systolic 198 mmHg 2016-10-22 Blood pressure diastolic 132 mmHg 2016-10-22 MEDICATIONS Medication Instructions Dosage Frequency Start Date End Date Duration Status Hydrocodone-Acetaminophen 10-325 MG Orally every 6 hrs 1 tablet 6h Aug, Active Zoloft 100 MG Orally Once a day 1 tablet 24h Active Ventolin HFA 108 (90 Base) MCG/ACT Inhalation every 4 hrs 2 puffs as needed 4h Active Symbicort 160-4.5 MCG/ACT Inhalation Twice a day 2 puffs 12h Active HydrOXYzine HCl 25 MG Orally every 6 hrs 1 tablet 6h Oct, 30 day(s) Active RESULTS No Results PROCEDURES No Known procedures IMMUNIZATIONS No Known Immunizations MEDICAL (GENERAL) HISTORY Type Description Date Medical History Anxiety Medical History Major depressive disorder, single episode, unspecified Medical History Pain, unspecified Medical History asthma Surgical History cholecystectomy Surgical History section Surgical History partial hysterectomy Hospitalization History surgeries
--- OUTSIDE RECORDS SUMMARY | 2019-04-12 17:02 | XMS REPORT ---
Author Author PRINCE COHEN Organization [facility] Address [address] [place] [address] Care Team Providers Care Geology Scientist Name Role Phone PRINCE COHEN Unavailable PROBLEMS Type Condition ICD9-CM Code [id number] Code Onset Dates Condition Status SNOMED Code Problem Hypertriglyceridemia E78.1 Active 308739198 Problem Moderate episode of recurrent major depressive disorder F33.1 Active 594581072 Problem Encounter to establish care Z76.89 Active 711777317 Problem Grief F43.20 Active 99075461 Problem Urinary incontinence without sensory awareness N39.42 Active 339704483 Problem Anxiety F41.9 Active 58589316 Problem Migraine with status migrainosus, not intractable, unspecified migraine type G43.901 Active 435837640 Problem Essential hypertension I10 Active 95860490 Problem Other chronic pain G89.29 Active 16280147 ALLERGIES Substance Reaction Event Type Date Status Latex Unknown Drug Allergy Oct, Active Quinapril HCl flu like symptoms Drug Allergy Oct, Active Aspirin swelling Drug Allergy Oct, Active ENCOUNTERS Encounter Location Date Diagnosis [place] [id number] [place] [address] Mar, [facility] [id number] [place] [address] Feb, Other chronic pain G89.29 [facility] [address] [address] January, Other chronic pain G89.29 [facility] [address] [place] [id number] [place] [address] Dec, Other chronic pain G89.29 [facility] [address] [place] [id number] [place] [address] Dec, [facility] [id number] [place] [address] Dec, Essential hypertension I10 and Anxiety F41.9 [facility] [address] [place] [id number] [place] [address] Nov, Anxiety F41.9 ; Essential hypertension I10 ; Chronic prescription opiate use Z79.891 and BMI 50.0-59.9, adult Z68.43 [facility] [address] [place] [id number] [place] [address] Nov, Other chronic pain G89.29 [place] [address] [place] [id number] [place] [address] Nov, Other chronic pain G89.29 [place] [address] [place] [id number] [place] [address] Oct, [place] [address] [address] Oct, [facility] [address] [place] [id number] [place] [address] Oct, Essential hypertension I10 ; Encounter for immunization Z23 ; BMI 50.0-59.9, adult Z68.43 ; Other chronic pain G89.29 ; Tobacco use Z72.0 and Tobacco abuse counseling Z71.6 [place] [address] [place] [id number] [place] [address] Oct, Other chronic pain G89.29 [facility] [address] [place] [id number] [place] [address] Sep, Other chronic pain G89.29 [place] [address] [place] [id number] [place] [address] Aug, Other chronic pain G89.29 [place] [address] [place] [id number] [place] [address] Jul, Other chronic pain G89.29 [place] [address] [place] [id number] [place] [address] Jun, Hypertriglyceridemia E78.1 [place] [address] [address] 16 Jun, 2017 Other chronic pain G89.29 ; Essential hypertension I10 and Anxiety F41.9 [place] [address] [address] May, Other chronic pain G89.29 [place] [address] [address] Apr, Other chronic pain G89.29 [place] [address] [address] Mar, Grief F43.20 [place] [address] [address] Mar, Other chronic pain G89.29 [place] [address] [place] [id number] [place] [address] Feb, Other chronic pain G89.29 [place] [address] [place] [id number] [place] [address] Feb, Annual physical exam Z00.00 ; Acute right flank pain R10.9 ; Urinary incontinence without sensory awareness N39.42 ; Anxiety F41.9 and Essential hypertension I10 [place] [address] [place] [id number] [place] [address] January, Other chronic pain G89.29 [place] [address] [place] [id number] [place] [address] January, Other chronic pain G89.29 [place] [address] [place] [id number] [place] [address] January, [place] [address] [place] [id number] [place] [address] Dec, Essential hypertension I10 ; Anxiety F41.9 and Other chronic pain G89.29 [facility] [address] [place] [address] [id number] [place] [address] Nov, [facility] [address] [address] Nov, Mild intermittent asthma without complication J45.20 [facility] [address] [place] [id number] [place] [address] Oct, [facility] [address] [address] Oct, [facility] [address] [address] Oct, [facility] [address] [address] Oct, Essential hypertension I10 ; Anxiety F41.9 and Rash R21 [place] [address] [address] Oct, [facility] [address] [address] Oct, Allergic contact dermatitis, unspecified trigger L23.9 [facility] [address] [place] [id number] [place] [address] Oct, [facility] [address] [place] [id number] [place] [address] Sep, Anxiety F41.9 and Moderate episode of recurrent major depressive disorder F33.1 [facility] [address] [place] [id number] [place] [address] Sep, Anxiety F41.9 and Essential hypertension I10 [place] [address] [address] Sep, [facility] [address] [place] [id number] [place] [address] Aug, [facility] [address] [place] [address] Aug, [facility] [address] [place] [id number] [place] [address] Aug, [facility] [address] [place] [id number] [place] [address] Jul, Other chronic pain G89.29 [facility] [address] [place] [id number] [place] [address] Jul, [facility] [address] [place] [id number] [place] [address] Jun, Other chronic pain G89.29 [facility] [address] [place] [id number] [place] [address] Jun, [facility] [address] [place] [address] [id number] [place] [address] Jun, [facility] [address] [place] [id number] [place] [address] Jun, Other chronic pain G89.29 [facility] [address] [place] [id number] [place] [address] Jun, [facility] [address] [place] [id number] [place] [address] May, Sweating abnormality L74.9 and Hot flashes R23.2 [facility] [address] [place] [id number] [place] [address] May, [facility] [address] [place] [id number] [place] [address] May, Other chronic pain G89.29 [facility] [address] [place] [id number] [place] [address] Apr, Other chronic pain G89.29 ; Mild intermittent asthma without complication J45.20 and Rash R21 [facility] [address] [place] [id number] [place] [address] Mar, Encounter to establish care Z76.89 ; Migraine with status migrainosus, not intractable, unspecified migraine type G43.901 ; Anxiety F41.9 and Moderate episode of recurrent major depressive disorder F33.1 IMMUNIZATIONS Vaccine Route Administration Date Status FLUKAVON TELLEZ (6 MO AND UP) 2016 IM Intramuscular Oct 20, 2017 Administered SOCIAL HISTORY Never Assessed REASON FOR VISIT Pain management (chronic) - Avril RN, Wakes up gasping for air, tired during day, frequent headaches upon waking PLAN OF CARE Activity Details Follow Up 4 Weeks Reason:smoking cessation VITAL SIGNS Height 53 in 2017-10-20 Weight 236 lbs 2017-10-20 Temperature 98.1 degrees Fahrenheit 2017-10-20 Heart Rate 98 bpm 2017-10-20 Respiratory Rate 20 2017-10-20 BMI 59.06 kg/m2 2017-10-20 Blood pressure systolic 190 mmHg 2017-10-20 Blood pressure diastolic 108 mmHg 2017-10-20 MEDICATIONS Medication Instructions Dosage Frequency Start Date End Date Duration Status Ventolin HFA 108 (90 Base) MCG/ACT Inhalation every 4 hrs 2 puffs as needed 4h 30 Active Detrol LA 4 MG Orally Once a day 1 capsule 24h 19 Feb, 2017 Not-Taking Hydrocodone-Acetaminophen 10-325 MG Orally 3 times a day 1 tablet 8h 04 Oct, 2017 28 days Active HydrOXYzine HCl 25 MG Orally every 6 hrs 1 tablet 6h Oct, 30 day(s) Active Zoloft 100 mg Orally Once a day 1 tablet 24h Active Toprol XL 50 MG Orally Once a day 1 tablet at bedtime 24h Oct, 90 days Active RESULTS No Results PROCEDURES Procedure Date Ordered Result Body Site FLULAVAL QUAD (6 MO AND UP) 2017 Oct 20, 2017 SINGLE IMMUNIZATION ADMIN Oct 20, 2017 INSTRUCTIONS MEDICATIONS ADMINISTERED No Known Medications MEDICAL (GENERAL) HISTORY Type Description Date Medical History Anxiety Medical History Major depressive disorder, single episode, unspecified Medical History Pain, unspecified Medical History asthma Surgical History cholecystectomy Surgical History section Surgical History partial hysterectomy Hospitalization History surgeries
--- OUTSIDE RECORDS SUMMARY | 2019-04-12 17:02 | XMS REPORT ---
Author Author PRINCE COHEN Organization [facility] Address [address] [place] [address] Care Team Providers Care Zigzag Topstitcher Name Role Phone PRINCE COHEN Unavailable PROBLEMS Type Condition ICD9-CM Code [id number] Code Onset Dates Condition Status SNOMED Code Problem Hypertriglyceridemia E78.1 Active 101044453 Problem Moderate episode of recurrent major depressive disorder F33.1 Active 471395674 Problem Encounter to establish care Z76.89 Active 860878422 Problem Grief F43.20 Active 90196449 Problem Urinary incontinence without sensory awareness N39.42 Active 709794973 Problem Anxiety F41.9 Active 44238819 Problem Migraine with status migrainosus, not intractable, unspecified migraine type G43.901 Active 730802512 Problem Essential hypertension I10 Active 55590894 Problem Other chronic pain G89.29 Active 73213860 ALLERGIES No Information ENCOUNTERS Encounter Location Date Diagnosis [place] [address] [address] Mar, [facility] [address] [place] [id number] [place] [address] Feb, Other chronic pain G89.29 [facility] [address] [place] [id number] [place] [address] January, Other chronic pain G89.29 [facility] [address] [place] [id number] [place] [address] Dec, Other chronic pain G89.29 [facility] [address] [address] Dec, [facility] [address] [address] Dec, Essential hypertension I10 and Anxiety F41.9 [facility] [address] [place] [id number] [place] [address] Nov, Anxiety F41.9 ; Essential hypertension I10 ; Chronic prescription opiate use Z79.891 and BMI 50.0-59.9, adult Z68.43 [place] [address] [place] [id number] [place] [address] Nov, Other chronic pain G89.29 [facility] [address] [address] Nov, Other chronic pain G89.29 [place] [address] [address] Oct, [place] [address] [address] Oct, [place] [address] [address] Oct, Encounter for immunization Z23 ; Essential hypertension I10 ; BMI 50.0-59.9, adult Z68.43 ; Other chronic pain G89.29 ; Tobacco use Z72.0 and Tobacco abuse counseling Z71.6 [place] [address] [place] [id number] [place] [address] 02 Oct, 2017 Other chronic pain G89.29 [place] [address] [place] [id number] [place] [address] Sep, Other chronic pain G89.29 [place] [address] [place] [id number] [place] [address] Aug, Other chronic pain G89.29 [place] [address] [address] Jul, Other chronic pain G89.29 [place] [address] [place] [id number] [place] [address] Jun, Hypertriglyceridemia E78.1 [place] [address] [place] [id number] [place] [address] 16 Jun, 2017 Other chronic pain G89.29 ; Essential hypertension I10 and Anxiety F41.9 [place] [address] [place] [id number] [place] [address] 15 May, 2017 Other chronic pain G89.29 [place] [address] [place] [id number] [place] [address] Apr, Other chronic pain G89.29 [place] [address] [address] Mar, Grief F43.20 [place] [address] [address] Mar, Other chronic pain G89.29 [place] [address] [place] [id number] [place] [address] Feb, Other chronic pain G89.29 [place] [address] [place] [id number] [place] [address] Feb, Annual physical exam Z00.00 ; Acute right flank pain R10.9 ; Urinary incontinence without sensory awareness N39.42 ; Anxiety F41.9 and Essential hypertension I10 [place] [address] [place] [id number] [place] [address] January, Other chronic pain G89.29 [place] [address] [place] [id number] [place] [address] January, Other chronic pain G89.29 [place] [address] [place] [id number] [place] [address] January, [place] [address] [place] [id number] [place] [address] Dec, Essential hypertension I10 ; Anxiety F41.9 and Other chronic pain G89.29 [place] [address] [place] [id number] [place] [address] Nov, [place] [address] [place] [id number] [place] [address] Nov, Mild intermittent asthma without complication J45.20 [facility] [address] [address] Oct, [facility] [address] [address] Oct, [facility] [address] [address] Oct, [facility] [address] [address] Oct, Essential hypertension I10 ; Anxiety F41.9 and Rash R21 [place] [address] [address] Oct, [place] [address] [address] Oct, Allergic contact dermatitis, unspecified trigger L23.9 [place] [address] [place] [id number] [place] [address] Oct, [place] [address] [place] [id number] [place] [address] Sep, Anxiety F41.9 and Moderate episode of recurrent major depressive disorder F33.1 [place] [address] [address] Sep, Anxiety F41.9 and Essential hypertension I10 [place] [address] [place] [id number] [place] [address] Sep, [place] [address] [address] Aug, [facility] [address] [address] Aug, [facility] [address] [address] Aug, [facility] [address] [place] [address] Jul, Other chronic pain G89.29 [facility] [address] [place] [address] Jul, [facility] [address] [place] [id number] [place] [address] Jun, Other chronic pain G89.29 [facility] [address] [place] [id number] [place] [address] Jun, [facility] [address] [place] [id number] [place] [address] Jun, [facility] [address] [place] [id number] [place] [address] Jun, Other chronic pain G89.29 [facility] [address] [place] [id number] [place] [address] Jun, [facility] [address] [place] [id number] [place] [address] 30 May, 2016 Sweating abnormality L74.9 and Hot flashes R23.2 [facility] [address] [place] [id number] [place] [address] May, [facility] [address] [place] [id number] [place] [address] May, Other chronic pain G89.29 [facility] [address] [place] [id number] [place] [address] Apr, Other chronic pain G89.29 ; Mild intermittent asthma without complication J45.20 and Rash R21 [facility] [address] [address] Mar, Encounter to establish care Z76.89 ; Migraine with status migrainosus, not intractable, unspecified migraine type G43.901 ; Anxiety F41.9 and Moderate episode of recurrent major depressive disorder F33.1 IMMUNIZATIONS No Known Immunizations SOCIAL HISTORY Never Assessed REASON FOR VISIT Nutrition appt offered PLAN OF CARE VITAL SIGNS MEDICATIONS Unknown [...]
--- OUTSIDE RECORDS SUMMARY | 2019-04-12 17:02 | XMS REPORT ---
Author Author PRINCE COHEN Organization [employer] Address Unknown Phone Unavailable Care Team Providers Care Senior Hardware Engineer Name Role Phone PRINCE COHEN CP Unavailable Allergies No Known Allergies Problems Problem Type Condition Code Onset Dates Condition Status Problem Encounter to establish care Z76.89 Active Problem Migraine with status migrainosus, not intractable, unspecified migraine type G43.901 Active Problem Other chronic pain G89.29 Active Problem Anxiety F41.9 Active Problem Moderate episode of recurrent major depressive disorder F33.1 Active Medications No Known Medications Results No Known Results Summary Purpose [employer] Submission
--- OUTSIDE RECORDS SUMMARY | 2019-04-12 17:03 | XMS REPORT ---
Author Author PRINCE COHEN Organization [facility] Address [address] [place] [address] Care Team Providers Care Horticultural Therapist Name Role Phone PRINCE COHEN Unavailable PROBLEMS Type Condition ICD9-CM Code IBC20-GK Code Onset Dates Condition Status SNOMED Code Problem Hypertriglyceridemia E78.1 Active 341980268 Problem Moderate episode of recurrent major depressive disorder F33.1 Active 931495663 Problem Encounter to establish care Z76.89 Active 228259624 Problem Grief F43.20 Active 01041343 Problem Urinary incontinence without sensory awareness N39.42 Active 967482922 Problem Anxiety F41.9 Active 31197235 Problem Migraine with status migrainosus, not intractable, unspecified migraine type G43.901 Active 475625511 Problem Essential hypertension I10 Active 53987492 Problem Other chronic pain G89.29 Active 75572331 ALLERGIES No Information ENCOUNTERS Encounter Location Date Diagnosis [place] [id number] [place] [address] Mar, [place] [id number] [place] [address] January, Other chronic pain G89.29 [facility] [id number] [place] [address] Dec, Other chronic pain G89.29 [facility] [id number] [place] [address] Dec, [place] [address] [address] Dec, Essential hypertension I10 and Anxiety F41.9 [facility] [address] [address] Nov, Anxiety F41.9 ; Essential hypertension I10 ; Chronic prescription opiate use Z79.891 and BMI 50.0-59.9, adult Z68.43 [place] [address] [address] Nov, Other chronic pain G89.29 [place] [address] [address] Nov, Other chronic pain G89.29 [place] [address] [address] Oct, [place] [address] [address] Oct, [place] [address] [address] Oct, Essential hypertension I10 ; Encounter for immunization Z23 ; BMI 50.0-59.9, adult Z68.43 ; Other chronic pain G89.29 ; Tobacco use Z72.0 and Tobacco abuse counseling Z71.6 [place] [address] [address] Oct, Other chronic pain G89.29 [place] [address] [address] Sep, Other chronic pain G89.29 [place] [address] [address] Aug, Other chronic pain G89.29 [place] [id number] [place] [address] Jul, Other chronic pain G89.29 [place] [address] [address] Jun, Hypertriglyceridemia E78.1 [place] [address] [address] 16 Jun, 2017 Other chronic pain G89.29 ; Essential hypertension I10 and Anxiety F41.9 [facility] [id number] [address] 15 May, 2017 Other chronic pain G89.29 [facility] [id number] [place] [address] Apr, Other chronic pain G89.29 [place] [id number] [place] [address] Mar, Grief F43.20 [facility] [id number] [place] [address] Mar, Other chronic pain G89.29 [place] [id number] [place] [address] Feb, Other chronic pain G89.29 [place] [id number] [place] [address] Feb, Annual physical exam Z00.00 ; Acute right flank pain R10.9 ; Urinary incontinence without sensory awareness N39.42 ; Anxiety F41.9 and Essential hypertension I10 [place] [id number] [place] [address] January, Other chronic pain G89.29 [place] [id number] [place] [address] January, Other chronic pain G89.29 [place] [id number] [place] [address] January, [facility] [id number] [place] [address] Dec, Essential hypertension I10 ; Anxiety F41.9 and Other chronic pain G89.29 [place] [id number] [place] [address] Nov, [place] [id number] [place] [address] Nov, Mild intermittent asthma without complication J45.20 [place] [id number] [place] [address] Oct, [facility] [id number] [place] [address] Oct, [facility] [id number] [place] [address] Oct, [facility] [address] [address] Oct, Essential hypertension I10 ; Anxiety F41.9 and Rash R21 [facility] [id number] [place] [address] Oct, [facility] [id number] [place] [address] Oct, Allergic contact dermatitis, unspecified trigger L23.9 [facility] [id number] [place] [address] Oct, [facility] [id number] [place] [address] Sep, Anxiety F41.9 and Moderate episode of recurrent major depressive disorder F33.1 [facility] [id number] [place] [address] Sep, Anxiety F41.9 and Essential hypertension I10 [facility] [id number] [place] [address] Sep, [facility] [id number] [place] [address] Aug, [facility] [id number] [place] [address] Aug, [facility] [id number] [place] [address] Aug, [facility] [id number] [place] [address] Jul, Other chronic pain G89.29 [facility] [address] [address] Jul, [facility] [id number] [place] [address] Jun, Other chronic pain G89.29 [facility] [id number] [place] [address] Jun, [facility] [id number] [place] [address] Jun, [facility] [id number] [place] [address] Jun, Other chronic pain G89.29 [facility] [id number] [place] [address] Jun, [facility] [id number] [place] [address] May, Sweating abnormality L74.9 and Hot flashes R23.2 [facility] [id number] [place] [address] May, [facility] [id number] [place] [address] May, Other chronic pain G89.29 [facility] [id number] [place] [address] Apr, Other chronic pain G89.29 ; Mild intermittent asthma without complication J45.20 and Rash R21 [facility] [address] [place] [address] Mar, Encounter to establish care Z76.89 ; Migraine with status migrainosus, not intractable, unspecified migraine type G43.901 ; Anxiety F41.9 and Moderate episode of recurrent major depressive disorder F33.1 IMMUNIZATIONS No Known Immunizations SOCIAL HISTORY Never Assessed REASON FOR VISIT Controlled Med Refill 09/13/17 PLAN OF CARE VITAL SIGNS MEDICATIONS Medication Instructions Dosage Frequency Start Date End Date Duration Status Hydrocodone-Acetaminophen 10-325 MG Orally 3 times a day 1 tablet 8h Sep, 28 days Active RESULTS No Results PROCEDURES No Known procedures INSTRUCTIONS MEDICATIONS ADMINISTERED No Known Medications MEDICAL (GENERAL) HISTORY Type Description Date Medical History Anxiety Medical History Major depressive disorder, single episode, unspecified Medical History Pain, unspecified Medical History asthma Surgical History cholecystectomy Surgical History section Surgical History partial hysterectomy Hospitalization History surgeries
--- OUTSIDE RECORDS SUMMARY | 2019-04-12 17:03 | XMS REPORT ---
Author Author PRINCE COHEN Organization [employer] Address Unknown Phone Unavailable Care Team Providers Care Keymodule Assembly Machine Tender Name Role Phone PRINCE COHEN CP Unavailable Allergies No Known Allergies Problems Problem Type Condition Code Onset Dates Condition Status Problem Migraine with status migrainosus, not intractable, unspecified migraine type G43.901 Active Problem Anxiety F41.9 Active Problem Encounter to establish care Z76.89 Active Problem Moderate episode of recurrent major depressive disorder F33.1 Active Medications No Known Medications Results No Known Results Summary Purpose [employer] Submission
--- OUTSIDE RECORDS SUMMARY | 2019-04-12 17:03 | XMS REPORT ---
Author Author PRINCE COHEN [facility] Address [address] [place] [address] Care Team Providers Care Dental Aide Name Role Phone PRINCE COHEN Unavailable PROBLEMS Type Condition ICD9-CM Code [id number] Code Onset Dates Condition Status SNOMED Code Problem Anxiety F41.9 Active 53115726 Problem Moderate episode of recurrent major depressive disorder F33.1 Active 851906647 Problem Grief F43.20 Active 00102129 Problem Urinary incontinence without sensory awareness N39.42 Active 360182546 Problem Encounter to establish care Z76.89 Active 539596868 Problem Migraine with status migrainosus, not intractable, unspecified migraine type G43.901 Active 706265667 Problem Essential hypertension I10 Active 72640728 Problem Other chronic pain G89.29 Active 67566068 ALLERGIES Unknown Allergies SOCIAL HISTORY No smoking Hx information available PLAN OF CARE VITAL SIGNS MEDICATIONS Medication Instructions Dosage Frequency Start Date End Date Duration Status Hydrocodone-Acetaminophen 10-325 MG Orally 4 times a day 1 tablet as needed 6h 28 days Active RESULTS No Results PROCEDURES No Known procedures IMMUNIZATIONS No Known Immunizations
--- OUTSIDE RECORDS SUMMARY | 2019-04-12 17:03 | XMS REPORT ---
Author Author PRINCE COHEN Organization [facility] Address [address] [place] [address] Care Team Providers Care Bit Gatherer Name Role Phone PRINCE COHEN Unavailable PROBLEMS Type Condition ICD9-CM Code [id number] Code Onset Dates Condition Status SNOMED Code Problem Moderate episode of recurrent major depressive disorder F33.1 Active 777328918 Problem Encounter to establish care Z76.89 Active 877782320 Problem Grief F43.20 Active 10487902 Problem Urinary incontinence without sensory awareness N39.42 Active 157765588 Problem Anxiety F41.9 Active 42975411 Problem Migraine with status migrainosus, not intractable, unspecified migraine type G43.901 Active 170252964 Problem Essential hypertension I10 Active 64451109 Problem Other chronic pain G89.29 Active 44965103 ALLERGIES No Information SOCIAL HISTORY Never Assessed PLAN OF CARE VITAL SIGNS MEDICATIONS Medication Instructions Dosage Frequency Start Date End Date Duration Status Zoloft 100 MG Orally Once a day 1 tablet 24h 30 days Active RESULTS No Results PROCEDURES No Known procedures IMMUNIZATIONS No Known Immunizations MEDICAL (GENERAL) HISTORY Type Description Date Medical History Anxiety Medical History Major depressive disorder, single episode, unspecified Medical History Pain, unspecified Medical History asthma Surgical History cholecystectomy Surgical History section Surgical History partial hysterectomy Hospitalization History surgeries
--- OUTSIDE RECORDS SUMMARY | 2019-04-12 17:03 | XMS REPORT ---
Author Author PRINCE COHEN [facility] Address [address] [place] [address] Care Team Providers Care Business Process Modeler Name Role Phone PRINCE COHEN Unavailable PROBLEMS Type Condition ICD9-CM Code ZCA72-SZ Code Onset Dates Condition Status SNOMED Code Problem Anxiety F41.9 Active 45397636 Problem Moderate episode of recurrent major depressive disorder F33.1 Active 470792129 Problem Grief F43.20 Active 28510435 Problem Urinary incontinence without sensory awareness N39.42 Active 304812414 Problem Encounter to establish care Z76.89 Active 469685161 Problem Migraine with status migrainosus, not intractable, unspecified migraine type G43.901 Active 682746028 Problem Essential hypertension I10 Active 08589153 Problem Other chronic pain G89.29 Active 40123357 ALLERGIES Unknown Allergies SOCIAL HISTORY No smoking Hx information available PLAN OF CARE VITAL SIGNS MEDICATIONS Medication Instructions Dosage Frequency Start Date End Date Duration Status Hydrocodone-Acetaminophen 10-325 MG Orally every 6 hrs 1 tablet 6h Aug, Active RESULTS No Results PROCEDURES No Known procedures IMMUNIZATIONS No Known Immunizations
--- OUTSIDE RECORDS SUMMARY | 2019-04-12 17:03 | XMS REPORT ---
Author Author PRINCE COHEN Organization [employer] Address Unknown Phone Unavailable Care Team Providers Care Supervisor Beet End Name Role Phone PRINCE COHEN CP Unavailable [...] disorder F33.1 Active Medications No Known Medications Procedures Procedure Coding System Code Date No Charge CPT-4 57467 Jul 28, 2016 Results No Known Results Summary Purpose [employer] Submission
--- OUTSIDE RECORDS SUMMARY | 2019-04-12 17:03 | XMS REPORT ---
Author Author PRINCE COHEN Organization [facility] Address [address] [place] [address] Care Team Providers Care Wad Compressor Operator Adjuster Name Role Phone PRINCE COHEN Unavailable PROBLEMS Type Condition ICD9-CM Code HZB51-PV Code Onset Dates Condition Status SNOMED Code Problem Moderate episode of recurrent major depressive disorder F33.1 Active 102032752 Problem Encounter to establish care Z76.89 Active 392619305 Problem Grief F43.20 Active 41842288 Problem Urinary incontinence without sensory awareness N39.42 Active 886057474 Problem Anxiety F41.9 Active 93276075 Problem Migraine with status migrainosus, not intractable, unspecified migraine type G43.901 Active 768796028 Problem Essential hypertension I10 Active 60961379 Problem Other chronic pain G89.29 Active 28056506 ALLERGIES No Information SOCIAL HISTORY Never Assessed PLAN OF CARE VITAL SIGNS MEDICATIONS Medication Instructions Dosage Frequency Start Date End Date Duration Status Hydrocodone-Acetaminophen 10-325 MG Orally every 6 hrs 1 tablet 6h Oct, 28 days Active RESULTS No Results PROCEDURES No Known procedures IMMUNIZATIONS No Known Immunizations MEDICAL (GENERAL) HISTORY Type Description Date Medical History Anxiety Medical History Major depressive disorder, single episode, unspecified Medical History Pain, unspecified Medical History asthma Surgical History cholecystectomy Surgical History section Surgical History partial hysterectomy Hospitalization History surgeries
--- OUTSIDE RECORDS SUMMARY | 2019-04-12 17:03 | XMS REPORT ---
Author Author PRINCE COHEN Organization [facility] Address [address] [place] [address] Care Team Providers Care Pack Master Name Role Phone PRINCE COHEN Unavailable PROBLEMS Type Condition ICD9-CM Code [id number] Code Onset Dates Condition Status SNOMED Code Problem Hypertriglyceridemia E78.1 Active 788004758 Problem Moderate episode of recurrent major depressive disorder F33.1 Active 018661370 Problem Encounter to establish care Z76.89 Active 954362175 Problem Grief F43.20 Active 53790291 Problem Urinary incontinence without sensory awareness N39.42 Active 644801362 Problem Anxiety F41.9 Active 73314875 Problem Migraine with status migrainosus, not intractable, unspecified migraine type G43.901 Active 414789988 Problem Essential hypertension I10 Active 97068458 Problem Other chronic pain G89.29 Active 12139005 ALLERGIES No Information SOCIAL HISTORY Never Assessed PLAN OF CARE VITAL SIGNS MEDICATIONS Medication Instructions Dosage Frequency Start Date End Date Duration Status Hydrocodone-Acetaminophen 10-325 MG Orally 3 times a day 1 tablet 8h January, 28 days Active Alprazolam 1 MG Orally Twice a day 1 tablet 12h 28 days Active RESULTS No Results PROCEDURES No Known procedures IMMUNIZATIONS No Known Immunizations MEDICAL (GENERAL) HISTORY Type Description Date Medical History Anxiety Medical History Major depressive disorder, single episode, unspecified Medical History Pain, unspecified Medical History asthma Surgical History cholecystectomy Surgical History section Surgical History partial hysterectomy Hospitalization History surgeries
--- OUTSIDE RECORDS SUMMARY | 2019-04-12 17:03 | XMS REPORT ---
Author Author PRINCE COHEN [facility] Address [address] [place] [address] Care Team Providers Care Apprentice Funeral Director Name Role Phone PRINCE COHEN Unavailable PROBLEMS Type Condition ICD9-CM Code SPS69-BK Code Onset Dates Condition Status SNOMED Code Problem Moderate episode of recurrent major depressive disorder F33.1 Active 382435623 Problem Encounter to establish care Z76.89 Active 994819580 Problem Grief F43.20 Active 70406743 Problem Urinary incontinence without sensory awareness N39.42 Active 912850722 Problem Anxiety F41.9 Active 79675754 Problem Migraine with status migrainosus, not intractable, unspecified migraine type G43.901 Active 756409240 Problem Essential hypertension I10 Active 01209999 Problem Other chronic pain G89.29 Active 81101945 ALLERGIES Substance Reaction Event Type Date Status Latex Unknown Drug Allergy Sep, Active Aspirin swelling Drug Allergy Sep, Active SOCIAL HISTORY Never Assessed PLAN OF CARE Activity Details Follow Up 2 Weeks Reason:BP VITAL SIGNS Height 53 in 2016-10-06 Weight 230.6 lbs 2016-10-06 Temperature 97.9 degrees Fahrenheit 2016-10-06 Heart Rate 88 bpm 2016-10-06 Respiratory Rate 20 2016-10-06 BMI 57.71 kg/m2 2016-10-06 Blood pressure systolic 200 mmHg 2016-10-06 Blood pressure diastolic 120 mmHg 2016-10-06 MEDICATIONS Medication Instructions Dosage Frequency Start Date End Date Duration Status Alprazolam 1 MG Orally Twice a day 1 tablet 12h 28 days Active Zoloft 100 MG Orally Once a day 1 tablet 24h Active Ventolin HFA 108 (90 Base) MCG/ACT Inhalation every 4 hrs 2 puffs as needed 4h Active Depakote ER 500 MG Orally at bedtime 1 capsule Sep, 120 days Active Quinapril HCl 20 mg Orally Once a day 1 tablet 24h Sep, 90 days Active Symbicort 160-4.5 MCG/ACT Inhalation Twice a day 2 puffs 12h Active Hydrocodone-Acetaminophen 10-325 MG Orally every 6 hrs [...]
--- OUTSIDE RECORDS SUMMARY | 2019-04-12 17:03 | XMS REPORT ---
Author Author PRINCE COHEN Organization [facility] Address [address] [place] [address] Care Team Providers Care Assistant Pressman Name Role Phone PRINCE COHEN Unavailable PROBLEMS Type Condition ICD9-CM Code HSF87-WY Code Onset Dates Condition Status SNOMED Code Problem Moderate episode of recurrent major depressive disorder F33.1 Active 310122661 Problem Encounter to establish care Z76.89 Active 716391767 Problem Grief F43.20 Active 96989351 Problem Urinary incontinence without sensory awareness N39.42 Active 197440744 Problem Anxiety F41.9 Active 95390352 Problem Migraine with status migrainosus, not intractable, unspecified migraine type G43.901 Active 767913408 Problem Essential hypertension I10 Active 91860257 Problem Other chronic pain G89.29 Active 83857903 ALLERGIES No Information SOCIAL HISTORY Never Assessed PLAN OF CARE VITAL SIGNS MEDICATIONS Medication Instructions Dosage Frequency Start Date End Date Duration Status Symbicort 160-4.5 MCG/ACT Inhalation Twice a day 2 puffs 12h Active RESULTS No Results PROCEDURES No Known procedures IMMUNIZATIONS No Known Immunizations MEDICAL (GENERAL) HISTORY Type Description Date Medical History Anxiety Medical History Major depressive disorder, single episode, unspecified Medical History Pain, unspecified Medical History asthma Surgical History cholecystectomy Surgical History section Surgical History partial hysterectomy Hospitalization History surgeries
--- OUTSIDE RECORDS SUMMARY | 2019-04-12 17:03 | XMS REPORT ---
Author Author PRINCE COHEN Organization [facility] Address [address] [place] [address] Care Team Providers Care Automotive Parts Counter Assistant Name Role Phone PRINCE COHEN Unavailable PROBLEMS Type Condition ICD9-CM Code HUI25-CJ Code Onset Dates Condition Status SNOMED Code Problem Hypertriglyceridemia E78.1 Active 077856373 Problem Moderate episode of recurrent major depressive disorder F33.1 Active 515917379 Problem Encounter to establish care Z76.89 Active 910708697 Problem Grief F43.20 Active 13926130 Problem Urinary incontinence without sensory awareness N39.42 Active 752309404 Problem Anxiety F41.9 Active 49675145 Problem Migraine with status migrainosus, not intractable, unspecified migraine type G43.901 Active 877200415 Problem Essential hypertension I10 Active 47923844 Problem Other chronic pain G89.29 Active 95210120 ALLERGIES No Information ENCOUNTERS Encounter Location Date Diagnosis [place] [address] [address] Dec, [place] [address] [address] Dec, Essential hypertension I10 and Anxiety F41.9 [place] [address] [address] Nov, Anxiety F41.9 ; Essential hypertension I10 ; Chronic prescription opiate use Z79.891 and BMI 50.0-59.9, adult Z68.43 [place] [address] [address] Nov, Other chronic pain G89.29 [place] [address] [address] Nov, Other chronic pain G89.29 [facility] [address] [place] [id number] [place] [address] Oct, [facility] [address] [address] Oct, [facility] [address] [place] [id number] [place] [address] Oct, Essential hypertension I10 ; Encounter for immunization Z23 ; BMI 50.0-59.9, adult Z68.43 ; Other chronic pain G89.29 ; Tobacco use Z72.0 and Tobacco abuse counseling Z71.6 [place] [address] [place] [id number] [place] [address] Oct, Other chronic pain G89.29 [place] [address] [place] [id number] [place] [address] Sep, Other chronic pain G89.29 [place] [address] [address] Aug, Other chronic pain G89.29 [place] [address] [place] [id number] [place] [address] Jul, Other chronic pain G89.29 [place] [address] [place] [id number] [place] [address] Jun, Hypertriglyceridemia E78.1 [place] [address] [place] [id number] [place] [address] 16 Jun, 2017 Other chronic pain G89.29 ; Essential hypertension I10 and Anxiety F41.9 [facility] [address] [place] [id number] [place] [address] May, Other chronic pain G89.29 [facility] [address] [place] [id number] [place] [address] Apr, Other chronic pain G89.29 [place] [address] [place] [id number] [place] [address] Mar, Grief F43.20 [facility] [address] [place] [id number] [place] [address] Mar, Other chronic pain G89.29 [facility] [address] [id number] [place] [address] Feb, Other chronic pain G89.29 [facility] [address] [place] [id number] [place] [address] Feb, Annual physical exam Z00.00 ; Acute right flank pain R10.9 ; Urinary incontinence without sensory awareness N39.42 ; Anxiety F41.9 and Essential hypertension I10 [facility] [address] [address] January, Other chronic pain G89.29 [facility] [address] [id number] [place] [address] January, Other chronic pain G89.29 [facility] [address] [id number] [place] [address] January, [facility] [address] [place] [id number] [place] [address] Dec, Essential hypertension I10 ; Anxiety F41.9 and Other chronic pain G89.29 [facility] [address] [place] [id number] [place] [address] Nov, [facility] [address] [place] [id number] [place] [address] Nov, Mild intermittent asthma without complication J45.20 [facility] [address] [place] [id number] [place] [address] Oct, [facility] [address] [id number] [place] [address] Oct, [facility] [address] [place] [id number] [place] [address] Oct, [facility] [address] [place] [address] Oct, Essential hypertension I10 ; Anxiety F41.9 and Rash R21 [facility] [address] [address] Oct, [facility] [address] [address] Oct, Allergic contact dermatitis, unspecified trigger L23.9 [facility] [address] [address] Oct, [facility] [address] [address] Sep, Anxiety F41.9 and Moderate episode of recurrent major depressive disorder F33.1 [place] [address] [address] Sep, Anxiety F41.9 and Essential hypertension I10 [place] [address] [address] Sep, [facility] [address] [place] [id number] [place] [address] Aug, [facility] [address] [place] [id number] [place] [address] Aug, [place] [address] [place] [id number] [place] [address] Aug, [facility] [address] [place] [id number] [place] [address] Jul, Other chronic pain G89.29 [facility] [address] [place] [id number] [place] [address] Jul, [facility] [address] [address] Jun, Other chronic pain G89.29 [facility] [address] [place] [id number] [place] [address] Jun, [place] [id number] [place] [address] Jun, [place] [address] [place] [id number] [place] [address] Jun, Other chronic pain G89.29 [place] [address] [id number] [place] [address] Jun, [place] [address] [place] [id number] [place] [address] May, Sweating abnormality L74.9 and Hot flashes R23.2 [place] [address] [address] May, [place] [address] [place] [id number] [place] [address] May, Other chronic pain G89.29 [place] [address] [place] [id number] [place] [address] Apr, Other chronic pain G89.29 ; Mild intermittent asthma without complication J45.20 and Rash R21 [place] [id number] [place] [address] Mar, Encounter to establish care Z76.89 ; Migraine with status migrainosus, not intractable, unspecified migraine type G43.901 ; Anxiety F41.9 and Moderate episode of recurrent major depressive disorder F33.1 IMMUNIZATIONS No Known Immunizations SOCIAL HISTORY Never Assessed REASON FOR VISIT Controlled Med Refill 05/24/2017 PLAN OF CARE VITAL SIGNS MEDICATIONS Medication Instructions Dosage Frequency Start Date End Date Duration Status Hydrocodone-Acetaminophen 10-325 MG Orally 3 times a day 1 tablet 8h 17 May, 2017 28 days Active RESULTS No Results PROCEDURES No Known procedures INSTRUCTIONS MEDICATIONS ADMINISTERED No Known Medications MEDICAL (GENERAL) HISTORY Type Description Date Medical History Anxiety Medical History Major depressive disorder, single episode, unspecified Medical History Pain, unspecified Medical History asthma Surgical History cholecystectomy Surgical History section Surgical History partial hysterectomy Hospitalization History surgeries
--- OUTSIDE RECORDS SUMMARY | 2019-04-12 17:03 | XMS REPORT ---
Author Author PRINCE COHEN Organization [employer] Address Unknown Phone Unavailable Care Team Providers Care Bank Representative Name Role Phone PRINCE COHEN CP Unavailable [...] Start Date End Date Status Dosage Hydrocodone-Acetaminophen FORMER[facility] NAMED [facility] [id number] 10-325 MG Orally 4 times a day 1 tablet as needed Results No Known Results Summary Purpose [employer] Submission
--- OUTSIDE RECORDS SUMMARY | 2019-04-12 17:03 | XMS REPORT ---
Author Author PRINCE COHEN [facility] Address [address] [place] [address] Care Team Providers Care Turner Machine Operator Name Role Phone PRINCE COHEN Unavailable PROBLEMS Type Condition ICD9-CM Code ZBK23-PE Code Onset Dates Condition Status SNOMED Code Problem Moderate episode of recurrent major depressive disorder F33.1 Active 330626396 Problem Encounter to establish care Z76.89 Active 614377286 Problem Grief F43.20 Active 50437878 Problem Urinary incontinence without sensory awareness N39.42 Active 303084835 Problem Anxiety F41.9 Active 49077933 Problem Migraine with status migrainosus, not intractable, unspecified migraine type G43.901 Active 083650456 Problem Essential hypertension I10 Active 49525277 Problem Other chronic pain G89.29 Active 01443977 ALLERGIES No Information SOCIAL HISTORY Never Assessed [...]
--- OUTSIDE RECORDS SUMMARY | 2019-04-12 17:04 | XMS REPORT ---
Author Author STACY KAYCE Organization [facility] Address [address] [place] [address] Care Team Providers Care Account Collector Name Role Phone KUMARKAYCE [place] Unavailable PROBLEMS Type Condition ICD9-CM Code TEE30-JU Code Onset Dates Condition Status SNOMED Code Problem Moderate episode of recurrent major depressive disorder F33.1 Active 093138374 Problem Encounter to establish care Z76.89 Active 740911148 Problem Grief F43.20 Active 62142177 Problem Urinary incontinence without sensory awareness N39.42 Active 971278417 Problem Anxiety F41.9 Active 58541590 Problem Migraine with status migrainosus, not intractable, unspecified migraine type G43.901 Active 424668288 Problem Essential hypertension I10 Active 23049635 Problem Other chronic pain G89.29 Active 30228266 ALLERGIES Substance Reaction Event Type Date Status Latex Unknown Drug Allergy Oct, Active Aspirin swelling Drug Allergy Oct, Active SOCIAL HISTORY Never Assessed PLAN OF CARE Activity Details Follow Up prn Reason: VITAL SIGNS Height 53 in 2016-10-16 Weight 227.3 lbs 2016-10-16 Temperature 98.9 degrees Fahrenheit 2016-10-16 Heart Rate 84 bpm 2016-10-16 Respiratory Rate 18 2016-10-16 BMI 56.89 kg/m2 2016-10-16 Blood pressure systolic 138 mmHg 2016-10-16 Blood pressure diastolic 86 mmHg 2016-10-16 MEDICATIONS Medication Instructions Dosage Frequency Start Date End Date Duration Status Hydrocodone-Acetaminophen 10-325 MG Orally every 6 hrs 1 tablet 6h Aug, Active Depakote ER 500 MG Orally at bedtime 1 capsule Sep, 120 days Active Quinapril HCl 20 mg Orally Once a day 1 tablet 24h Sep, 90 days Active Symbicort 160-4.5 MCG/ACT Inhalation Twice a day 2 puffs 12h Active Ventolin HFA 108 (90 Base) MCG/ACT Inhalation every 4 hrs 2 puffs as needed 4h Active Zoloft 100 MG Orally Once a day 1 tablet 24h Active Alprazolam 1 MG Orally Twice a day 1 tablet 12h 28 days Active RESULTS No Results PROCEDURES Procedure Date Ordered Result Body Site DEXAMETHASONE 4MG/ML (PER 1 MG) Oct 16, 2016 DEPO MEDROL 40 MG/ML Oct 16, 2016 THER/PROPH/DIAG INJ, SC/IM Oct 16, 2016 IMMUNIZATIONS Vaccine Route Administration Date Status DEXAMETHASONE 4MG/ML (PER 1 MG) IM Intramuscular Oct 16, 2016 Administered DEPO MEDROL 40 MG/ML IM Intramuscular Oct 16, 2016 Administered MEDICAL (GENERAL) HISTORY Type Description Date Medical History Anxiety Medical History Major depressive disorder, single episode, unspecified Medical History Pain, unspecified Medical History asthma Surgical History cholecystectomy Surgical History section Surgical History partial hysterectomy Hospitalization History surgeries
--- OUTSIDE RECORDS SUMMARY | 2019-04-12 17:04 | XMS REPORT ---
Author Author PRINCE COHEN Organization [facility] Address [address] [place] [address] Care Team Providers Care Certified Professional Coder Name Role Phone PRINCE COHEN Unavailable PROBLEMS Type Condition ICD9-CM Code HVS13-VK Code Onset Dates Condition Status SNOMED Code Problem Hypertriglyceridemia E78.1 Active 654242856 Problem Moderate episode of recurrent major depressive disorder F33.1 Active 930726816 Problem Encounter to establish care Z76.89 Active 808075208 Problem Grief F43.20 Active 72754407 Problem Urinary incontinence without sensory awareness N39.42 Active 039745592 Problem Anxiety F41.9 Active 93490933 Problem Migraine with status migrainosus, not intractable, unspecified migraine type G43.901 Active 588306165 Problem Essential hypertension I10 Active 20036359 Problem Other chronic pain G89.29 Active 88619137 ALLERGIES No Information ENCOUNTERS Encounter Location Date Diagnosis [place] [address] [address] Dec, [place] [address] [address] Dec, Essential hypertension I10 and Anxiety F41.9 [place] [address] [address] Nov, Anxiety F41.9 ; Essential hypertension I10 ; Chronic prescription opiate use Z79.891 and BMI 50.0-59.9, adult Z68.43 [place] [address] [address] Nov, Other chronic pain G89.29 [place] [address] [address] Nov, Other chronic pain G89.29 [facility] [address] [place] [address] Oct, [facility] [address] [address] Oct, [facility] [address] [place] [id number] [place] [address] 14 Oct, 2017 Encounter for immunization Z23 ; Essential hypertension I10 ; BMI 50.0-59.9, adult Z68.43 ; Other chronic pain G89.29 ; Tobacco use Z72.0 and Tobacco abuse counseling Z71.6 [place] [address] [place] [id number] [place] [address] 02 Oct, 2017 Other chronic pain G89.29 [place] [address] [place] [id number] [place] [address] Sep, Other chronic pain G89.29 [place] [address] [address] Aug, Other chronic pain G89.29 [place] [address] [place] [id number] [place] [address] Jul, Other chronic pain G89.29 [place] [address] [place] [id number] [place] [address] Jun, Hypertriglyceridemia E78.1 [place] [address] [place] [id number] [place] [address] 16 Jun, 2017 Other chronic pain G89.29 ; Essential hypertension I10 and Anxiety F41.9 [facility] [address] [place] [id number] [place] [address] May, Other chronic pain G89.29 [place] [address] [place] [id number] [place] [address] Apr, Other chronic pain G89.29 [place] [address] [place] [id number] [place] [address] Mar, Grief F43.20 [facility] [address] [place] [id number] [place] [address] Mar, Other chronic pain G89.29 [facility] [address] [place] [id number] [place] [address] Feb, Other chronic pain G89.29 [facility] [address] [place] [id number] [place] [address] Feb, Annual physical exam Z00.00 ; Acute right flank pain R10.9 ; Urinary incontinence without sensory awareness N39.42 ; Anxiety F41.9 and Essential hypertension I10 [facility] [address] [address] January, Other chronic pain G89.29 [facility] [address] [place] [id number] [place] [address] January, Other chronic pain G89.29 [facility] [address] [place] [id number] [place] [address] January, [facility] [address] [place] [id number] [place] [address] Dec, Essential hypertension I10 ; Anxiety F41.9 and Other chronic pain G89.29 [facility] [address] [place] [id number] [place] [address] Nov, [facility] [address] [place] [id number] [place] [address] Nov, Mild intermittent asthma without complication J45.20 [facility] [address] [place] [id number] [place] [address] Oct, [facility] [address] [place] [id number] [place] [address] Oct, [facility] [address] [place] [id number] [place] [address] Oct, [facility] [address] [place] [address] Oct, Essential hypertension I10 ; Anxiety F41.9 and Rash R21 [facility] [address] [address] Oct, [facility] [address] [address] Oct, Allergic contact dermatitis, unspecified trigger L23.9 [facility] [address] [address] Oct, [facility] [address] [address] Sep, Anxiety F41.9 and Moderate episode of recurrent major depressive disorder F33.1 [place] [address] [address] Sep, Anxiety F41.9 and Essential hypertension I10 [place] [address] [address] Sep, [facility] [address] [place] [id number] [place] [address] Aug, [facility] [address] [place] [id number] [place] [address] Aug, [place] [address] [place] [id number] [place] [address] Aug, [facility] [address] [place] [id number] [place] [address] Jul, Other chronic pain G89.29 [facility] [address] [place] [id number] [place] [address] Jul, [facility] [address] [address] Jun, Other chronic pain G89.29 [facility] [address] [place] [id number] [place] [address] Jun, [place] [address] [place] [address] Jun, [place] [address] [place] [id number] [place] [address] Jun, Other chronic pain G89.29 [place] [address] [place] [id number] [place] [address] Jun, [place] [address] [place] [id number] [place] [address] May, Sweating abnormality L74.9 and Hot flashes R23.2 [place] [address] [address] May, [place] [address] [place] [id number] [place] [address] May, Other chronic pain G89.29 [place] [address] [place] [id number] [place] [address] Apr, Other chronic pain G89.29 ; Mild intermittent asthma without complication J45.20 and Rash R21 [place] [id number] [place] [address] Mar, Encounter to establish care Z76.89 ; Migraine with status migrainosus, not intractable, unspecified migraine type G43.901 ; Anxiety F41.9 and Moderate episode of recurrent major depressive disorder F33.1 IMMUNIZATIONS No Known Immunizations SOCIAL HISTORY Never Assessed REASON FOR VISIT Rx Request/Controlled Med PLAN OF CARE VITAL SIGNS MEDICATIONS Medication Instructions Dosage Frequency Start Date End Date Duration Status Ativan 0.5 MG Orally Once a day 1 tablet at bedtime as needed for insomnia 24h Mar, Apr, 10 days Active RESULTS No Results PROCEDURES No Known procedures INSTRUCTIONS MEDICATIONS ADMINISTERED No Known Medications MEDICAL (GENERAL) HISTORY Type Description Date Medical History Anxiety Medical History Major depressive disorder, single episode, unspecified Medical History Pain, unspecified Medical History asthma Surgical History cholecystectomy Surgical History section Surgical History partial hysterectomy Hospitalization History surgeries
--- OUTSIDE RECORDS SUMMARY | 2019-04-12 17:04 | XMS REPORT ---
Author Author PRINCE COHEN [facility] Address [address] [place] [address] Care Team Providers Care Retail Product Demo Specialist Name Role Phone PRINCE COHEN Unavailable PROBLEMS Type Condition ICD9-CM Code HTM32-EP Code Onset Dates Condition Status SNOMED Code Problem Moderate episode of recurrent major depressive disorder F33.1 Active 516492579 Problem Encounter to establish care Z76.89 Active 946963512 Problem Grief F43.20 Active 94407116 Problem Urinary incontinence without sensory awareness N39.42 Active 359309488 Problem Anxiety F41.9 Active 68617962 Problem Migraine with status migrainosus, not intractable, unspecified migraine type G43.901 Active 153181173 Problem Essential hypertension I10 Active 65371583 Problem Other chronic pain G89.29 Active 83079336 ALLERGIES Unknown Allergies SOCIAL HISTORY No smoking Hx information available PLAN OF CARE VITAL SIGNS MEDICATIONS Medication Instructions Dosage Frequency Start Date End Date Duration Status Hydrocodone-Acetaminophen 10-325 MG Orally every 6 hrs 1 tablet 6h Aug, Active RESULTS No Results PROCEDURES No Known procedures IMMUNIZATIONS No Known Immunizations
--- OUTSIDE RECORDS SUMMARY | 2019-04-12 17:04 | XMS REPORT ---
Author Author PRINCE COHEN Organization [employer] Address Unknown Phone Unavailable Care Team Providers Care Aircraft Communicator Name Role Phone PRINCE COHEN CP Unavailable [...]
--- OUTSIDE RECORDS SUMMARY | 2019-04-12 17:04 | XMS REPORT ---
Author Author PRINCE COHEN Organization [facility] Address [address] [place] [address] Care Team Providers Care Computerized Mill Recorder Name Role Phone PRINCE COHEN Unavailable PROBLEMS Type Condition ICD9-CM Code IHV45-HE Code Onset Dates Condition Status SNOMED Code Problem Hypertriglyceridemia E78.1 Active 424679311 Problem Moderate episode of recurrent major depressive disorder F33.1 Active 855601520 Problem Encounter to establish care Z76.89 Active 436446201 Problem Grief F43.20 Active 86728729 Problem Urinary incontinence without sensory awareness N39.42 Active 015540290 Problem Anxiety F41.9 Active 34790786 Problem Migraine with status migrainosus, not intractable, unspecified migraine type G43.901 Active 538022062 Problem Essential hypertension I10 Active 33001413 Problem Other chronic pain G89.29 Active 34509861 ALLERGIES No Information ENCOUNTERS Encounter Location Date Diagnosis [place] [address] [address] Nov, [place] [address] [address] Nov, Other chronic pain G89.29 [place] [address] [address] Oct, [place] [address] [address] Oct, [place] [address] [address] Oct, Essential hypertension I10 ; Encounter for immunization Z23 ; BMI 50.0-59.9, adult Z68.43 ; Other chronic pain G89.29 ; Tobacco use Z72.0 and Tobacco abuse counseling Z71.6 [facility] [address] [place] [id number] [place] [address] Oct, Other chronic pain G89.29 [facility] [address] [place] [address] [id number] [place] [address] Sep, Other chronic pain G89.29 [facility] [address] [place] [id number] [place] [address] Aug, Other chronic pain G89.29 [facility] [address] [place] [id number] [place] [address] Jul, Other chronic pain G89.29 [place] [address] [place] [id number] [place] [address] Jun, Hypertriglyceridemia E78.1 [place] [address] [place] [id number] [place] [address] Jun, Other chronic pain G89.29 ; Essential hypertension I10 and Anxiety F41.9 [facility] [address] [place] [id number] [place] [address] May, Other chronic pain G89.29 [facility] [address] [place] [id number] [place] [address] Apr, Other chronic pain G89.29 [place] [address] [place] [id number] [place] [address] Mar, Grief F43.20 [facility] [address] [place] [id number] [place] [address] Mar, Other chronic pain G89.29 [place] [address] [place] [id number] [place] [address] Feb, Other chronic pain G89.29 [facility] [address] [place] [id number] [place] [address] Feb, Annual physical exam Z00.00 ; Acute right flank pain R10.9 ; Urinary incontinence without sensory awareness N39.42 ; Anxiety F41.9 and Essential hypertension I10 [facility] [address] [place] [id number] [place] [address] January, Other chronic pain G89.29 [facility] [address] [place] [id number] January, Other chronic pain G89.29 [facility] [address] [address] January, [facility] [address] [address] Dec, Essential hypertension I10 ; Anxiety F41.9 and Other chronic pain G89.29 [place] [address] [address] Nov, [place] [address] [address] Nov, Mild intermittent asthma without complication J45.20 [facility] [address] [place] [id number] [place] [address] Oct, [place] [address] [address] Oct, [place] [address] [place] [id number] [place] [address] Oct, [place] [address] [place] [id number] [place] [address] Oct, Essential hypertension I10 ; Anxiety F41.9 and Rash R21 [facility] [address] [place] [id number] [place] [address] Oct, [place] [address] [address] Oct, Allergic contact dermatitis, unspecified trigger L23.9 [facility] [address] [address] Oct, [place] [address] [place] [id number] [place] [address] Sep, Anxiety F41.9 and Moderate episode of recurrent major depressive disorder F33.1 [facility] [address] [place] [id number] [place] [address] Sep, Anxiety F41.9 and Essential hypertension I10 [facility] [address] [place] [id number] [place] [address] Sep, [facility] [address] [place] [id number] [place] [address] Aug, [facility] [address] [place] [id number] [place] [address] Aug, [facility] [address] [place] [id number] [place] [address] Aug, [facility] [address] [place] [id number] [place] [address] Jul, Other chronic pain G89.29 [facility] [address] [place] [id number] [place] [address] Jul, [facility] [address] [place] [id number] [place] [address] Jun, Other chronic pain G89.29 [facility] [address] [place] [id number] [place] [address] Jun, [facility] [address] [place] [id number] [place] [address] Jun, [facility] [address] [place] [id number] [place] [address] Jun, Other chronic pain G89.29 [facility] [address] [place] [id number] [place] [address] Jun, [facility] [address] [place] [address] [id number] [place] [address] 30 May, 2016 Sweating abnormality L74.9 and Hot flashes R23.2 [place] [address] [place] [id number] [address] May, [place] [address] [place] [id number] [address] May, Other chronic pain G89.29 [place] [address] [address] Apr, Other chronic pain G89.29 ; Mild intermittent asthma without complication J45.20 and Rash R21 [place] [address] [place] [id number] [address] Mar, Encounter to establish care Z76.89 ; Migraine with status migrainosus, not intractable, unspecified migraine type G43.901 ; Anxiety F41.9 and Moderate episode of recurrent major depressive disorder F33.1 IMMUNIZATIONS No Known Immunizations SOCIAL HISTORY Never Assessed REASON FOR VISIT Controlled Med Refill PLAN OF CARE VITAL SIGNS MEDICATIONS Medication [...]
--- OUTSIDE RECORDS SUMMARY | 2019-04-12 17:04 | XMS REPORT ---
Author Author PRINCE COHEN Organization [facility] Address [address] [place] [address] Care Team Providers Care Raw Silk Grader Name Role Phone PRINCE COHEN Unavailable PROBLEMS Type Condition ICD9-CM Code BTQ38-SP Code Onset Dates Condition Status SNOMED Code Problem Hypertriglyceridemia E78.1 Active 723163276 Problem Moderate episode of recurrent major depressive disorder F33.1 Active 799983603 Problem Encounter to establish care Z76.89 Active 155867361 Problem Grief F43.20 Active 65854342 Problem Urinary incontinence without sensory awareness N39.42 Active 291257266 Problem Anxiety F41.9 Active 43289380 Problem Migraine with status migrainosus, not intractable, unspecified migraine type G43.901 Active 151775955 Problem Essential hypertension I10 Active 01219372 Problem Other chronic pain G89.29 Active 98973365 ALLERGIES No Information ENCOUNTERS Encounter Location Date Diagnosis [place] [address] [place] [id number] [place] [address] Dec, [place] [address] [place] [id number] [place] [address] Nov, Anxiety F41.9 ; Essential hypertension I10 ; Chronic prescription opiate use Z79.891 and BMI 50.0-59.9, adult Z68.43 [facility] [address] [place] [id number] [place] [address] Nov, Other chronic pain G89.29 [place] [address] [place] [id number] [place] [address] Nov, Other chronic pain G89.29 [facility] [address] [place] [id number] [place] [address] Oct, [place] [address] [place] [id number] [place] [address] 14 Oct, 2017 [place] [address] [address] 14 Oct, 2017 Encounter for immunization Z23 ; Essential hypertension I10 ; BMI 50.0-59.9, adult Z68.43 ; Other chronic pain G89.29 ; Tobacco use Z72.0 and Tobacco abuse counseling Z71.6 [place] [address] [address] 02 Oct, 2017 Other chronic pain G89.29 [place] [address] [address] Sep, Other chronic pain G89.29 [place] [address] [address] Aug, Other chronic pain G89.29 [place] [address] [address] Jul, Other chronic pain G89.29 [place] [address] [address] Jun, Hypertriglyceridemia E78.[address] [address] 16 Jun, 2017 Other chronic pain G89.29 ; Essential hypertension I10 and Anxiety F41.9 [place] [address] [place] [id number] [place] [address] May, Other chronic pain G89.29 [place] [address] [place] [id number] [place] [address] Apr, Other chronic pain G89.29 [place] [address] [place] [id number] [place] [address] Mar, Grief F43.20 [place] [id number] [place] [address] Mar, Other chronic pain G89.29 [facility] [address] [place] [id number] [place] [address] Feb, Other chronic pain G89.29 [facility] [address] [place] [id number] [place] [address] Feb, Annual physical exam Z00.00 ; Acute right flank pain R10.9 ; Urinary incontinence without sensory awareness N39.42 ; Anxiety F41.9 and Essential hypertension I10 [facility] [address] [address] January, Other chronic pain G89.29 [facility] [address] [address] January, Other chronic pain G89.29 [facility] [address] [address] January, [facility] [address] [address] Dec, Essential hypertension I10 ; Anxiety F41.9 and Other chronic pain G89.29 [facility] [address] [address] Nov, [facility] [address] [place] [id number] [place] [address] Nov, Mild intermittent asthma without complication J45.20 [facility] [address] [place] [id number] [place] [address] Oct, [facility] [address] [place] [id number] [place] [address] Oct, [facility] [address] [address] Oct, [facility] [address] [place] [id number] [place] [address] Oct, Essential hypertension I10 ; Anxiety F41.9 and Rash R21 [facility] [address] [place] [id number] [place] [address] 16 Oct, 2016 [facility] [address] [address] Oct, Allergic contact dermatitis, unspecified trigger L23.9 [facility] [address] [place] [id number] [place] [address] Oct, [facility] [address] [address] Sep, Anxiety F41.9 and Moderate episode of recurrent major depressive disorder F33.1 [facility] [address] [address] Sep, Anxiety F41.9 and Essential hypertension I10 [facility] [address] [place] [id number] [place] [address] Sep, [facility] [address] [place] [id number] [place] [address] Aug, [facility] [address] [place] [id number] [place] [address] Aug, [facility] [address] [place] [id number] [place] [address] Aug, [facility] [address] [place] [id number] [place] [address] Jul, Other chronic pain G89.29 [facility] [address] [place] [id number] [place] [address] Jul, [facility] [address] [place] [id number] [place] [address] Jun, Other chronic pain G89.29 [facility] [address] [place] [id number] [place] [address] Jun, [facility] [address] [id number] [place] [address] Jun, [facility] [address] [address] Jun, Other chronic pain G89.29 [place] [address] [place] [address] Jun, [place] [address] [place] [id number] [place] [address] 30 May, 2016 Sweating abnormality L74.9 and Hot flashes R23.2 [place] [address] [place] [id number] [place] [address] May, [place] [address] [place] [id number] [place] [address] May, Other chronic pain G89.29 [place] [address] [place] [address] Apr, Other chronic pain G89.29 ; Mild intermittent asthma without complication J45.20 and Rash R21 [place] [id number] [place] [address] Mar, Encounter to establish care Z76.89 ; Migraine with status migrainosus, not intractable, unspecified migraine type G43.901 ; Anxiety F41.9 and Moderate episode of recurrent major depressive disorder F33.1 IMMUNIZATIONS No Known Immunizations SOCIAL HISTORY Never Assessed REASON FOR VISIT Controlled Med Refill 03/29/2017 PLAN OF CARE VITAL SIGNS MEDICATIONS Medication [...]
--- OUTSIDE RECORDS SUMMARY | 2019-04-12 17:04 | XMS REPORT ---
Author Author PRINCE COHEN Organization [facility] Address [address] [place] [address] Care Team Providers Care Tumbler Machine Operator Helper Name Role Phone PRINCE COHEN Unavailable PROBLEMS Type Condition ICD9-CM Code EGN52-QV Code Onset Dates Condition Status SNOMED Code Problem Moderate episode of recurrent major depressive disorder F33.1 Active 611582408 Problem Encounter to establish care Z76.89 Active 368231305 Problem Grief F43.20 Active 65561515 Problem Urinary incontinence without sensory awareness N39.42 Active 340998804 Problem Anxiety F41.9 Active 81933970 Problem Migraine with status migrainosus, not intractable, unspecified migraine type G43.901 Active 204926177 Problem Essential hypertension I10 Active 07742179 Problem Other chronic pain G89.29 Active 70672833 ALLERGIES No Information SOCIAL HISTORY Never Assessed [...]
--- OUTSIDE RECORDS SUMMARY | 2019-04-12 17:04 | XMS REPORT ---
Author Author TANVI BALDWIN Organization [facility] Address [address] [place] [address] Care Team Providers Care Napper Runner Name Role Phone TANVI BALDWIN Unavailable PROBLEMS Type Condition ICD9-CM Code VCX29-GD Code Onset Dates Condition Status SNOMED Code Problem Moderate episode of recurrent major depressive disorder F33.1 Active 781625530 Problem Encounter to establish care Z76.89 Active 829704744 Problem Grief F43.20 Active 02860221 Problem Urinary incontinence without sensory awareness N39.42 Active 186530391 Problem Anxiety F41.9 Active 09769438 Problem Migraine with status migrainosus, not intractable, unspecified migraine type G43.901 Active 002150533 Problem Essential hypertension I10 Active 00018263 Problem Other chronic pain G89.29 Active 35046369 ALLERGIES Substance Reaction Event Type Date Status Latex Unknown Drug Allergy Sep, Active Aspirin swelling Drug Allergy Sep, Active SOCIAL HISTORY No smoking Hx information available PLAN OF CARE Activity Details Follow Up 2 Weeks Reason:Anxiety VITAL SIGNS MEDICATIONS Unknown Medications RESULTS No Results PROCEDURES Procedure Date Ordered Related Diagnosis Body Site Psych diagnostic evaluation, new patient Oct 06, 2016 IMMUNIZATIONS No Known Immunizations
--- OUTSIDE RECORDS SUMMARY | 2019-04-12 17:04 | XMS REPORT ---
Author Author PRINCE COHEN Organization [facility] Address [address] [place] [address] Care Team Providers Care Gis Web Developer Name Role Phone PRINCE COHEN Unavailable PROBLEMS Type Condition ICD9-CM Code NLX28-ZQ Code Onset Dates Condition Status SNOMED Code Problem Hypertriglyceridemia E78.1 Active 986757749 Problem Moderate episode of recurrent major depressive disorder F33.1 Active 194646716 Problem Encounter to establish care Z76.89 Active 881390812 Problem Grief F43.20 Active 08737998 Problem Urinary incontinence without sensory awareness N39.42 Active 304224704 Problem Anxiety F41.9 Active 14770529 Problem Migraine with status migrainosus, not intractable, unspecified migraine type G43.901 Active 283248031 Problem Essential hypertension I10 Active 88484517 Problem Other chronic pain G89.29 Active 48192387 ALLERGIES No Information ENCOUNTERS Encounter Location Date Diagnosis [place] [address] [address] January, Other chronic pain G89.29 [place] [address] [place] [id number] [place] [phone] Dec, Other chronic pain G89.29 [place] [address] [place] [id number] [place] [address] Dec, [place] [address] [place] [id number] [place] [address] Dec, Essential hypertension I10 and Anxiety F41.9 [place] [address] [address] Nov, Anxiety F41.9 ; Essential hypertension I10 ; Chronic prescription opiate use Z79.891 and BMI 50.0-59.9, adult Z68.43 [place] [address] [place] [id number] [place] [address] Nov, Other chronic pain G89.29 [place] [address] [place] [id number] [place] [address] Nov, Other chronic pain G89.29 [facility] [address] [address] Oct, [facility] [address] [address] Oct, [place] [address] [address] Oct, Encounter for immunization Z23 ; Essential hypertension I10 ; BMI 50.0-59.9, adult Z68.43 ; Other chronic pain G89.29 ; Tobacco use Z72.0 and Tobacco abuse counseling Z71.6 [place] [address] [place] [id number] [place] [address] Oct, Other chronic pain G89.29 [place] [address] [place] [id number] [place] [address] Sep, Other chronic pain G89.29 [place] [address] [place] [id number] [place] [address] Aug, Other chronic pain G89.29 [place] [address] [place] [id number] [place] [address] Jul, Other chronic pain G89.29 [place] [address] [place] [id number] [place] [address] Jun, Hypertriglyceridemia E78.1 [place] [address] [address] 16 Jun, 2017 Other chronic pain G89.29 ; Essential hypertension I10 and Anxiety F41.9 [place] [address] [address] 15 May, 2017 Other chronic pain G89.29 [facility] [id number] [place] [address] Apr, Other chronic pain G89.29 [facility] [address] [place] [id number] [place] [address] Mar, Grief F43.20 [facility] [address] [place] [id number] [place] [address] Mar, Other chronic pain G89.29 [facility] [address] [place] [id number] [place] [address] Feb, Other chronic pain G89.29 [facility] [address] [place] [id number] [place] [address] Feb, Annual physical exam Z00.00 ; Acute right flank pain R10.9 ; Urinary incontinence without sensory awareness N39.42 ; Anxiety F41.9 and Essential hypertension I10 [facility] [address] [place] [id number] [place] [address] January, Other chronic pain G89.29 [facility] [address] [place] [id number] [place] [address] January, Other chronic pain G89.29 [facility] [address] [place] [id number] [place] [address] January, [facility] [address] [place] [id number] [place] [address] Dec, Essential hypertension I10 ; Anxiety F41.9 and Other chronic pain G89.29 [facility] [address] [place] [id number] [place] [address] Nov, [facility] [address] [place] [id number] [place] [address] Nov, Mild intermittent asthma without complication J45.20 [facility] [address] [place] [id number] [place] [address] Oct, [facility] [address] [place] [id number] [place] [address] Oct, [facility] [address] [address] Oct, [facility] [address] [address] Oct, Essential hypertension I10 ; Anxiety F41.9 and Rash R21 [facility] [address] [address] Oct, [facility] [address] [address] Oct, Allergic contact dermatitis, unspecified trigger L23.9 [facility] [address] [address] Oct, [facility] [address] [address] Sep, Anxiety F41.9 and Moderate episode of recurrent major depressive disorder F33.1 [facility] [address] [address] Sep, Anxiety F41.9 and Essential hypertension I10 [facility] [address] [place] [id number] [place] [address] Sep, [facility] [address] [place] [id number] [place] [address] Aug, [facility] [address] [place] [id number] [place] [address] Aug, [facility] [address] [address] Aug, [facility] [address] [place] [id number] [place] [address] Jul, Other chronic pain G89.29 [facility] [address] [address] Jul, [facility] [address] [place] [id number] [place] [address] Jun, Other chronic pain G89.29 [facility] [address] [place] [id number] [place] [address] Jun, [facility] [address] [place] [id number] [place] [address] Jun, [facility] [address] [place] [id number] [place] [address] Jun, Other chronic pain G89.29 [place] [address] [place] [id number] [place] [address] Jun, [place] [address] [place] [id number] [place] [address] May, Sweating abnormality L74.9 and Hot flashes R23.2 [place] [address] [place] [id number] [place] [address] May, [place] [address] [place] [id number] [place] [address] May, Other chronic pain G89.29 [facility] [address] [place] [id number] [place] [address] Apr, Other chronic pain G89.29 ; Mild intermittent asthma without complication J45.20 and Rash R21 [place] [address] [place] [id number] [place] [address] Mar, Encounter to establish care Z76.89 ; Migraine with status migrainosus, not intractable, unspecified migraine type G43.901 ; Anxiety F41.9 and Moderate episode of recurrent major depressive disorder F33.1 IMMUNIZATIONS No Known Immunizations SOCIAL HISTORY Never Assessed REASON FOR VISIT Controlled Refill Reequest PLAN OF CARE VITAL SIGNS MEDICATIONS Medication [...]
--- OUTSIDE RECORDS SUMMARY | 2019-04-12 17:04 | XMS REPORT ---
Author Author PRINCE COHEN Organization [employer] Address Unknown Phone Unavailable Care Team Providers Care Sap Portal Consultant Name Role Phone PRINCE COHEN CP Unavailable [...] Start Date End Date Status Dosage Hydrocodone-Acetaminophen [facility] [id number] 10-325 MG Orally 4 times a day 1 tablet as needed Results No Known Results Summary Purpose [employer] Submission
--- OUTSIDE RECORDS SUMMARY | 2019-04-12 17:05 | XMS REPORT | Continuity of Care Document ---
Author Organization Unknown Address Unknown Phone Unavailable Allergies Active Description Code Type Severity Reaction Onset Reported/Identified Relationship to Patient Clinical Status Yes latex [id number] Drug Allergy Mild N/A 01/17/2009 Medications There is no data. Problems Date Dx Coded Attending Type Code Diagnosis Diagnosed By 11/05/2013 CHARLES PUENTES MD Ot 623.8 11/05/2013 CHARLES PUENTES MD Ot 626.6 05/10/2014 FENECH DO, BEAU Mata Ot 278.00 05/10/2014 FENECH DO, BEAU Mata Ot 305.1 05/10/2014 FENECH DO, BEAU Mata Ot 626.2 05/10/2014 FENECH DO, BEAU S Ot V85.39 12/04/2014 FENECH DO, BEAU S Ot 280.9 12/28/2014 FENECH DO, BEAU S Ot 278.00 12/28/2014 FENECH DO, BEAU S Ot 305.1 12/28/2014 FENECH DO, BEAU S Ot 568.0 12/28/2014 FENECH DO, BEAU S Ot 620.1 12/28/2014 FENECH DO, BEAU S Ot 626.2 12/28/2014 FENECH DO, BEAU S Ot V85.39 01/07/2015 FENECH DO, BEAU S Ot 278.00 01/07/2015 FENECH DO, BEAU S Ot 626.8 01/07/2015 FENECH DO, BEAU S Ot V72.63 01/07/2015 FENECH DO, BEAU S Ot V74.8 01/07/2015 FENECH DO, BEAU S Ot 280.9 01/07/2015 Ot 611.89 01/07/2015 Ot 620.2 01/07/2015 Ot 724.5 01/07/2015 Ot 625.9 01/07/2015 Ot 724.5 01/07/2015 Ot 625.9 01/07/2015 Ot 724.5 01/07/2015 FENECH DO, BEAU S Ot 625.9 01/07/2015 FENECH DO, BEAU Mata Ot 626.2 01/07/2015 FENECH DO, BEAU S Ot 626.2 01/07/2015 FENECH DO, BEAU Mata Ot V72.63 01/07/2015 FENECH DO, BEAU Mata Ot V74.8 01/07/2015 FENECH DO, BEAU Mata Ot 626.9 01/07/2015 FENECH DO, BEAU Mata Ot 278.00 01/07/2015 FENECH DO, BEAU Mata Ot 626.8 01/07/2015 FENECH DO, BEAU Mata Ot V72.63 01/07/2015 FENECH DO, BEAU Mata Ot V74.8 01/07/2015 FENECH DO, BEAU Mata Ot 280.9 01/07/2015 FENECH DO, BEAU Mata Ot 626.9 03/03/2015 FENECH DO, BEAU Mata Ot 280.9 03/19/2015 FENECH DO, BEAU Mata Ot 626.9 03/19/2015 FENECH DO, BEAU Mata Ot 278.00 03/19/2015 FENECH DO, BEAU Mata Ot 626.8 03/19/2015 FENECH DO, BEAU Mata Ot V72.63 03/19/2015 FENECH DO, BEAU Mata Ot V74.8 Procedures There is no data. Results Test Result Range - 06/21/17 11:34 Glucose, Serum 81 mg/dL 65-99 BUN 6 mg/dL 6-24 Creatinine, Serum 0.74 mg/dL 0.57-1.00 eGFR If NonAfricn Am 102 mL/min/1.73 >59 eGFR If Africn Am 117 mL/min/1.73 >59 BUN/Creatinine Ratio 8 9-23 Sodium, Serum 137 mmol/L 134-144 Potassium, Serum 4.2 mmol/L 3.5-5.2 Chloride, Serum 98 mmol/L 96-106 Carbon Dioxide, Total 23 mmol/L 18-29 Calcium, Serum 9.6 mg/dL 8.7-10.2 Protein, Total, Serum 7.4 g/dL 6.0-8.5 Albumin, Serum 4.3 g/dL 3.5-5.5 Globulin, Total 3.1 g/dL 1.5-4.5 A/G Ratio 1.4 1.2-2.2 Bilirubin, Total <0.2 mg/dL 0.0-1.2 Alkaline Phosphatase, S 86 IU/L 39-117 AST (SGOT) 19 IU/L 0-40 ALT (SGPT) 19 IU/L 0-32 PDM - AMPHETAMINES W/ REFLEX d/l ISOMERS - 12/01/17 11:44 COMMENT NRG Amphetamine NEGATIVE ng/mL <250 medMATCH Amphetamine CONSISTENT NRG Methamphetamine NEGATIVE ng/mL <250 medMATCH Methamphetamine CONSISTENT NRG PDM - 09 PANEL (PROFILE 1) - 02/06/19 17:38 Prescribed Drug 1 Hydrocodone NRG Creatinine 194.6 mg/dL > or=20.0 pH 6.64 4.5 - 9.0 Oxidant NEGATIVE mcg/mL <200 Amphetamines NEGATIVE ng/mL <500 medMATCH Amphetamines CONSISTENT NRG Benzodiazepines NEGATIVE CONFIRMED ng/mL <100 Marijuana Metabolite NEGATIVE ng/mL <20 medMATCH Marijuana Metab CONSISTENT NRG Cocaine Metabolite NEGATIVE ng/mL <150 medMATCH Cocaine Metab CONSISTENT NRG Opiates POSITIVE ng/mL <100 Oxycodone NEGATIVE ng/mL <100 medMATCH Oxycodone CONSISTENT NRG COMMENT NRG Alphahydroxyalprazolam NEGATIVE ng/mL <25 medMATCH aOH alprazolam CONSISTENT NRG Alphahydroxymidazolam NEGATIVE ng/mL <50 medMATCH aOH midazolam CONSISTENT NRG Alphahydroxytriazolam NEGATIVE ng/mL <50 medMATCH aOH triazolam CONSISTENT NRG Aminoclonazepam NEGATIVE ng/mL <25 medMATCH Aminoclonazepam CONSISTENT NRG Hydroxyethylflurazepam NEGATIVE ng/mL <50 medMATCH OH,Et flurazepam CONSISTENT NRG Lorazepam NEGATIVE ng/mL <50 medMATCH Lorazepam CONSISTENT NRG Nordiazepam NEGATIVE ng/mL <50 medMATCH Nordiazepam CONSISTENT NRG Oxazepam NEGATIVE ng/mL <50 medMATCH Oxazepam CONSISTENT NRG Temazepam NEGATIVE ng/mL <50 medMATCH Temazepam CONSISTENT NRG Codeine NEGATIVE ng/mL <50 medMATCH Codeine CONSISTENT NRG Hydrocodone 554 ng/mL <50 medMATCH Hydrocodone CONSISTENT NRG Hydromorphone 151 ng/mL <50 medMATCH Hydromorphone CONSISTENT NRG Morphine NEGATIVE ng/mL <50 medMATCH Morphine CONSISTENT NRG Norhydrocodone 1023 ng/mL <50 medMATCH Norhydrocodone CONSISTENT NRG Barbiturates NEGATIVE ng/mL <300 medMATCH Barbiturates CONSISTENT NRG Methadone Metabolite NEGATIVE ng/mL <100 medMATCH Methadone Metab CONSISTENT NRG Phencyclidine NEGATIVE ng/mL <25 medMATCH Phencyclidine CONSISTENT NRG Encounters ACCT No. Visit Date/Time Discharge Status Pt. Type Provider Facility Loc./Unit Complaint [id number] 02/06/2019 16:00:00 02/06/2019 23:59:59 CLS Outpatient PRINCE COHEN APRN [facility] [id number] 02/06/2019 16:00:00 Document Registration [id number] 12/01/2017 10:40:00 Document Registration [id number] 06/21/2017 10:40:00 Document Registration [id number] 03/04/2015 00:10:00 03/04/2015 23:59:59 CLS Preadmit HERNANDEZMARGARITA [place] BEAU S [facility] [id number] 12/04/2014 08:09:00 03/03/2015 00:01:00 DIS Outpatient HERNANDEZMARGARITA DO BEAU S [facility] [id number] 12/27/2014 06:00:00 12/28/2014 08:50:00 DIS Outpatient HERNANDEZMARGARITA [place] BEAU S [facility] [id number] 12/20/2014 12:06:00 12/20/2014 23:59:59 CLS Outpatient HERNANDEZMARGARITA L[place] BEAU S [facility] PREOP [id number] 11/28/2014 11:48:00 11/28/2014 23:59:59 CLS Outpatient HERNANDEZMARGARITA L[place] BEAU S [facility] RAD [id number] 05/10/2014 06:00:00 05/10/2014 10:20:00 DIS Outpatient HERNANDEZMARGARITA [place] BEAU S [facility] [id number] 05/04/2014 10:12:00 05/04/2014 23:59:59 CLS Outpatient HERNANDEZMARGARITA [place] BEAU S [facility] PREOP [id number] 04/13/2014 13:01:00 04/13/2014 23:59:59 CLS Outpatient FENECH BEAU [place] [facility] RAD [id number] 11/05/2013 12:36:00 11/05/2013 13:37:00 DIS Emergency DELORIS YOUNG, CHARLES Baker [facility] ER [id number] 01/07/2015 11:09:00 Document Registration [id number] 01/07/2015 11:09:00 Document Registration [id number] 06/05/2011 11:13:00 Document Registration [id number] 06/04/2011 08:05:00 Document Registration [id number] 12/17/2010 08:51:00 Document Registration
[2019-04-12] MEDS ORDERED: TETANUS,DIPTH,PERTUSS P/F (BOOSTRIX) 0.5 ML VIAL IM ONE (17:15)
--- NOTE | 2019-04-12 17:18 | ED Integumentary General ---
General Chief Complaint: Bite-Animal/Human/Insect Stated Complaint: DOG BITE Source: patient Exam Limitations: no limitations History of Present Illness Date Seen by Provider: Apr 12, 2019 Time Seen by Provider: 17:00 Initial Comments 43-year-old female who presents to the emergency room with complaints of a dog bite to her right knee just prior to arrival. She reports that she was a friend's house when they're [place] bit her in her right knee. She has a small 1 cm abrasion to the right knee. No active bleeding noted. She is not up-to-date on tetanus vaccine. The dog is up-to-date on all shots. She reports taking one of her prescribed hydrocodone prior to arrival for pain. Timing/Duration: just prior to arrival Allergies and Home Medications Allergies Coded Allergies: latex (Unverified Allergy, Mild, 01/17/09) Home Medications Albuterol Sulfate 1 Puff Puff, 1 PUFF IH Q4H PRN for WHEEZING, (Reported) PRN WHEEZING Docusate Sodium 100 Mg Cap, 100 MG PO BID PRN for CONSTIPATION Prescribed by: BEAU SALDIVAR on 12/28/14831 Ferrous Sulfate 325 Mg Tablet, 325 MG PO BID, (Reported) Folic Acid/Multivits-Min/Lut 1 Each Tab.chew, 1 EACH PO DAILY, (Reported) Hydrocodone Bit/Acetaminophen 1 Ea Tablet, 1 EA PO Q6H PRN for PAIN Prescribed by: BEAU SALDIVAR on 12/28/14831 Ibuprofen 600 Mg Tab, 600 MG PO Q6H PRN for PAIN Prescribed by: BEAU SALDIVAR on 12/28/14831 Salmeterol Xinaf/Fluticasone 1 Diskus Inhp, 0 INH DAILY, (Reported) [Simethicone] 80 MG CHEW, 40 MG PO TID PRN for INDIGESTION Prescribed by: BEAU SALDIVAR on 12/28/14831 Patient Home Medication List Home Medication List Reviewed: Yes Review of Systems Review of Systems Constitutional: see HPI; No chills, No fever Skin: see HPI, other (abrasion to right knee after dog bite.) All Other Systems Reviewed Negative Unless Noted: Yes Past Qukrige-Ewmvnz-Tzjvyi Hx Past Med/Social Hx: Reviewed Nursing Past Med/Soc Hx Patient Social History Alcohol Use: Denies Use Recreational Drug Use: No Smoking Status: Current Everyday Smoker Type Used: Cigarettes Recent Foreign Travel: No Contact w/Someone Who Travel: No Physical Abuse: No Sexual Abuse: No Mistreated: No Fear: No Immunizations Up To Date Tetanus Booster (TDap): Unknown Date of Influenza Vaccine: Jul 06, 2014 Past Medical History Surgeries: Yes (C/S X2, D&C, ) Respiratory: Yes (asthma) Asthma Cardiac: No Neurological: No Reproductive Disorders: Yes (DUB) Female Reproductive Disorders: Denies Sexually Transmitted Disease: No HIV/AIDS: No Gastrointestinal: No Musculoskeletal: No Endocrine: No Loss of Vision: Denies Hearing Impairment: Denies Cancer: No Psychosocial: No Integumentary: No Blood Disorders: Yes (ANEMIA) Adverse Reaction/Blood Tranf: No Family Medical History Reviewed Nursing Family Hx Kidney disease 19 MOTHER Physical Exam Vital Signs Capillary Refill : General Appearance: WD/WN, no apparent distress Cardiovascular: normal peripheral pulses, regular rate, rhythm, no edema, no gallop, no JVD, no murmur Respiratory: chest non-tender, lungs clear, normal breath sounds, no respiratory distress, no accessory muscle use Extremities: normal capillary refill Neurologic/Psychiatric: alert, normal mood/affect, oriented x 3 Skin: normal color, warm/dry Skin Problem Location: lower extremities (right knee) Skin Problem Character: other (1 cm abrasion to the right knee with surrounding erythema and ecchymosis. No active bleeding noted.) Progress/Results/Core Measures Results/Orders My Orders Orders - BERNOT,SHARON Dipht,Pertuss(Acell),Tet Adult (Boostrix (04/12/19 17:15) Departure Impression Primary Impression: Dog bite Disposition: 01 HOME, SELF-CARE Condition: Stable/Unchanged Departure-Patient Inst. Decision time for Depature: 17:19 Referrals: [facility] (PCP) Primary Care Physician PRINCE COHEN (Family) Primary Care Physician Patient Instructions: Animal Bites (DC) Add. Discharge Instructions: Take medication as directed. You may use ibuprofen and Tylenol as directed by the bottle for pain relief. Ice to the sore areas at 20 minute intervals. Triple antibiotic to the abrasion twice a day changes dressing daily. Watch for signs of infection such as increased redness, swelling, drainage, pain. Return back to the emergency room for worsening symptoms or concerns as needed. All discharge instructions reviewed with patient and/or family. Voiced understanding. Scripts Amoxicillin/Potassium Clav (Augmentin 875-125 Tablet) 1 Each Tablet 1 EACH PO BID for 7 Days, #14 TAB 0 Refills Prov: SHARON NEW 04/12/19 SHARON NEW Apr 12, 2019 17:18
[2019-04-12] MEDS ORDERED: AMOX-358 PO (17:20)
[2019-04-12 17:28] VITALS: BP 220/174
== END 2019-04-12 17:29 | disposition home or self-care (01) ==
LOC: EDUNIT# 16:54 → ER 16:55
DX: S81.051A Open bite, right knee, initial encounter (principal); J45.909 Unspecified asthma, uncomplicated; D64.9 Anemia, unspecified; F17.210 Nicotine dependence, cigarettes, uncomplicated; Z23 Encounter for immunization; Z91.040 Latex allergy status; W54.0XXA Bitten by dog, initial encounter; Y92.019 Unspecified place in single-family (private) house as the place of occurrence of the external cause
CPT/HCPCS: 90471; 90715; 99284

== ENCOUNTER → 2019-12-01 | Emergency (ER) | payer MEDICAID ==
[~2019-12-01] VITALS: Ht 167 cm; Wt 99.0 kg
[~2019-12-01] MED LIST changes: +AMOX-358 PO; +ATROPINE INJECTION 1 MG/10 ML SYR (ABBOTT) INJ ONE; +EPINEPHrine 0.1 MG/ML 10 ML (HOSPIRA) SYR IJ ONE; +ETOMIDATE IV SOLN 20 MG/10 ML VIAL IV ONE; +LACTATED RINGERS 1,000 ML IV ONE; +NS IV 1000 ML 1,000 ML ONE; +PROPOFOL DRIP (ICU) 100 ML IV ONE; +PROPOFOL DRIP (ICU) 100 ML IV SCH; +fentaNYL INJECTION 100 MCG/2 ML AMP INJ ONE; +methylPREDNISolone 125 MG (Solu-MEDROL) VIAL IVP ONE
--- NOTE | 2019-12-01 22:08 | NUR ---
PATIENT ARRIVES TO ROOM VIA WHEELCHAIR IN ACUTE RESPIRITORY DISTRESS. RESPIRITORY THERAPY NOTIFIED OF STAT PATIENT NEEDS. PATIENT C/O PAIN IN HER CHEST. PATIENT IS MARY/CYANOTIC IN PALLOR, DIAPHORETIC. RESTLESS TO POINT UNWILLING TO GET IN BED AND PUT SELF ON HER KNEES ON THE FLOOR IN TRIPOD POSITION. WHILE PATIENT IS IN THIS POSITION OXY MASK PLACED, ATTEMPT MADE TO START IV (SUCCESSFUL AT 2209). PATIENT BECOMES UNRESPONSIVE AT BEDSIDE (2211). PATIENT IS LIFTED INTO BED BY STAFF. MOMENTS AFTER BEING PLACED IN BED, PATIENT WAKES FOR A SHORT TIME, STATING "I CANT BREATHE". 2214 RT BAGING PATIENT 2214 20MCG ETOMIDATE GIVEN 2214 40MCG ROCURONIUM GIVEN 2215 7.5 MM INTUBATION TUBE PLACED, 1 AT GUM, COLOR CHANGE NOTED TO CO2 DETECTOR, PLACED BY ASHISH ONOFRE APRN 2217 OG PLACED BY CHIVO NI WITH 450mL CREAMY COLORED STOMACH CONTENT. 2219 16 [place]AL[place] CATHETER INSERTED BY CHIVO NI 222 WARMED NS WIDE OPEN LAC 20 GUAGE 2223 ABG, EKG 2230 ATROPINE 1MG 223 CPR IN PROGRESS, 1MG EPI GIVEN 2233 PULSE CHECK, PEA, CPR RESUMED 2234 EPI 1MG GIVEN 2236 PULSE CHECK, PULSE 176 VTACH 2238 CARDIOVERT VTACH TO SINUS TACH 2238 50mEq BICARB GIVEN 2239 1 LITER WARMED LR WIDE OPEN 2252 STOP IVF AT THIS TIME 2255 PRPOFOL STARTED AT RATE OF 12 MG/HR 2258 SATS BEGIN TO DROP, UNABLE TO PALPATE PULSE 2259 PEA, CPR RESUMED 2300 1MG EPI GIVEN 2302 PULSE CHECK, PEA, CPR RESUMED 2303 1 MG EPI GIVEN 2304 PULSE CHECK, PEA, CPR RESUMED 2306 PULSE CHECK, PEA, CPR RESUMED, EPI 1 MG GIVEN 2308 PULSE CHECK, PEA, CPR RESUMED 2309 1MG EPI GIVEN 2310 PULSE CHECK, PEA, CPR RESUMED 2312 PULSE CHECK, PEA 2312 TIME OF COVID 19 SWAB COLLECTED BY JARAD NI Addendum: 12/05/19 at 2123 by [id number] 2216 intubation tube 21cm at the gum. correcton for previously charted measurement.
--- OUTSIDE RECORDS SUMMARY | 2019-12-01 22:14 | XMS REPORT ---
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 Name Role Phone PRINCE COHEN Unavailable PROBLEMS Type Condition ICD9-CM Code PDG22-ZO Code Onset Dates Condition S tatus SNOMED Code Problem Hypertriglyceridemia E78.1 Active 690805611 Problem Moderate episode of recurrent major depressive disorder F33.1 Active 480002427 Problem Migraine with status migrain osus, not intractable, unspecified migraine type G43.901 Active 814028774 Problem Other chronic pain G89.29 Active 8 5950174 Problem Essential hypertension I10 Active 57676167 Problem Urinary incontinence without sensory awareness N39 .42 Active 887157672 Problem Mild intermittent asthma without complication J45. 20 Active 604578497 Problem Anxiety F41.9 Active 46354347 Problem COPD exacerbation J44.1 Active 19 6021498 Problem Encounter to establish care Z76.89 Ac tive 595783532 Problem Grief F43.20 Active 27642750 Problem Adjustment disorder with mixed anxiety and depressed mood F43.23 Active 247183524 Problem Severe episode of recurrent major depressive disorder, without psychotic features F33.2 Active 87208925 Problem Chronic otitis externa of right ear, unspecified type H60.61 Active [id number] ALLERGIES No Information ENCOUNTERS Encounter Location Date Diagnosis [facility] [address] [id number] [place] [address] Oct, [facility] [address] [facility] [id number] [place] [address] Oct, COPD exacerbation J44.1 [facility] [address] [id number] [place] [address] Oct, [facility] [address] [id number] [place] [address] Oct, [facility] [address] [address] Sep, Hypertriglyceridemia E78.1 [facility] [address] [address] 27 Sep, 2019 Essential hypertension I10 ; Moderate ep isode of recurrent major depressive disorder F33.1 ; Hypertriglyceridemia E78.1 ; Anxiety F41.9 and Other chronic pain G89.29 [facility] [address] [address] Sep, Essential hypertension I10 and Mild inte rmittent asthma without complication J45.20 [place] [address] [address] 14 Sep, 2019 Other chronic pain G89.29 [facility] [address] [facility] [id number] [place] [address] Sep, Mouth pain K13.79 [facility] [address] [address] Sep, [facility] [address] [address] Aug, [place] [address] [address] Aug, [place] [address] [address] Aug, Essential hypertension I10 [facility] [address] [address] Aug, Other chronic pain G89.29 [facility] [address] [address] Aug, [place] [address] [address] Aug, [facility] [address] [address] Jul, [facility] [address] [address] Jul, [facility] [address] [address] Jul, Severe episode of recurrent major depres sive disorder, without psychotic features F33.2 ; Other chronic pain G89.29 ; Chronic otitis externa of right ear, unspecified type H60.61 ; Essential hypertension I10 and Financial difficulties Z59.8 [place] [address] [address] Jul, Other chronic pain G89.29 and Adjustment insomnia F51.02 [place] [address] [address] Jul, [place] [address] [address] Jun, [place] [address] [address] Jun, Other chronic pain G89.29 and Adjustment insomnia F51.02 [facility] [address] [facility] [id number] [place] [address] Jun, Encounter for immunization Z 23 [place] [address] [address] Jun, [place] [address] [address] Jun, [facility] [address] [address] May, [facility] [address] [address] May, Moderate episode of recurrent major depr essive disorder F33.1 [place] [address] [address] May, Other chronic pain G89.29 and Adjustment insomnia F51.02 [facility] [address] [address] May, [place] [address] [address] Apr, Other chronic pain G89.29 and Adjustment insomnia F51.02 [facility] [address] [address] Apr, [facility] [address] [address] Apr, Other chronic pain G89.29 and Adjustment insomnia F51.02 [facility] [address] [address] Mar, Essential hypertension I10 [place] [address] [address] Mar, Other chronic pain G89.29 and Adjustment insomnia F51.02 [facility] [address] [address] Mar, Adjustment insomnia F51.02 [facility] [address] [address] Mar, Other chronic pain G89.29 [facility] [address] [address] Feb, Other chronic pain G89.29 [facility] [address] [address] Feb, [facility] [address] [address] Feb, Other chronic pain G89.29 [facility] [address] [address] Feb, Other chronic pain G89.29 [facility] [address] [address] Feb, Adjustment disorder with mixed anxiety a nd depressed mood F43.23 ; Moderate episode of recurrent major depressive disorder F33.1 and Anxiety F41.9 [place] [address] [address] 03 Feb, 2019 Therapeutic drug monitoring Z51.81 ; Anx iety F41.9 ; Other chronic pain G89.29 and Morbid obesity E66.01 [place] [id number] [address] Feb, Moderate episode of recurrent major depr essive disorder F33.1 ; Adjustment disorder with mixed anxiety and depressed mood F43.23 and Anxiety F41.9 [place] [address] [address] January, Other chronic pain G89.29 [place] [address] [address] Dec, Other chronic pain G89.29 [place] [address] [address] Nov, Other chronic pain G89.29 [place] [address] [address] Oct, Other chronic pain G89.29 [place] [address] [address] Oct, Essential hypertension I10 ; Anxiety F41 .9 ; Other chronic pain G89.29 ; Therapeutic drug monitoring Z51.81 and BMI 50.0-59.9, adult Z68.43 [place] [address] [address] Sep, Other chronic pain G89.29 [place] [address] [address] Sep, Other chronic pain G89.29 [place] [address] [address] Aug, Other chronic pain G89.29 [place] [address] [address] Jul, Other chronic pain G89.29 [place] [address] [address] Jun, Other chronic pain G89.29 [place] [address] [address] 24 May, 2018 Essential hypertension I10 ; Anxiety F41 .9 ; BMI 50.0-59.9, adult Z68.43 and Therapeutic drug monitoring Z51.81 [facility] [address] [address] 14 May, 2018 Other chronic pain G89.29 [place] [address] [address] Apr, Other chronic pain G89.29 [place] [address] [address] Mar, Other chronic pain G89.29 [place] [address] [address] Feb, Other chronic pain G89.29 [place] [address] [address] January, Other chronic pain G89.29 [place] [address] [address] Dec, Other chronic pain G89.29 [place] [address] [address] Dec, [place] [address] [address] Dec, Essential hypertension I10 and Anxiety F 41.9 [place] [address] [address] Nov, Anxiety F41.9 ; Essential hypertension I 10 ; Chronic prescription opiate use Z79.891 and BMI 50.0-59.9, adult Z68.43 [place] [address] [address] Nov, Other chronic pain G89.29 [place] [address] [address] Nov, Other chronic pain G89.29 [place] [address] [address] Oct, [place] [address] [address] Oct, [place] [address] [address] Oct, Essential hypertension I10 ; Encounter f or immunization Z23 ; BMI 50.0-59.9, adult Z68.43 ; Other chronic pain G89.29 ; Tobacco use Z72.0 and Tobacco abuse counseling Z71.6 [place] [address] [address] Oct, Other chronic pain G89.29 [place] [address] [address] Sep, Other chronic pain G89.29 [place] [address] [address] Aug, Other chronic pain G89.29 [place] [address] [address] Jul, Other chronic pain G89.29 [place] [address] [address] Jun, Hypertriglyceridemia E78.1 [place] [address] [address] 16 Jun, 2017 Other chronic pain G89.29 ; Essential hy pertension I10 and Anxiety F41.9 [place] [address] [address] 15 May, 2017 Other chronic pain G89.29 [place] [address] [address] Apr, Other chronic pain G89.29 [place] [address] [address] Mar, Grief F43.20 [place] [address] [address] Mar, Other chronic pain G89.29 [facility] [address] [address] Feb, Other chronic pain G89.29 [facility] [address] [address] Feb, Annual physical exam Z00.00 ; Acute righ t flank pain R10.9 ; Urinary incontinence without sensory awareness N39.42 ; Anxiety F41.9 and Essential hypertension I10 [facility] [address] [address] January, Other chronic pain G89.29 [facility] [address] [address] January, Other chronic pain G89.29 [place] [address] [address] January, [facility] [address] [address] Dec, Essential hypertension I10 ; Anxiety F41 .9 and Other chronic pain G89.29 [facility] [address] [address] Nov, [place] [address] [address] Nov, Mild intermittent asthma without complic ation J45.20 [facility] [address] [address] Oct, [facility] [address] [address] Oct, [facility] [address] [address] Oct, [place] [address] [address] Oct, Essential hypertension I10 ; Anxiety F41 .9 and Rash R21 [place] [address] [address] Oct, 2016 [facility] [address] [place] [id number] [place] [address] Oct, Allergic contact dermatitis, unspecified trigger L23.9 [facility] [address] [place] [id number] [place] [address] Oct, [facility] [address] [address] Sep, Anxiety F41.9 and Moderate episode of re current major depressive disorder F33.1 [facility] [address] [address] Sep, Anxiety F41.9 and Essential hypertension I10 [facility] [address] [address] Sep, [facility] [address] [address] Aug, [facility] [address] [address] Aug, [facility] [address] [address] Aug, [facility] [address] [address] Jul, Other chronic pain G89.29 [facility] [address] [address] Jul, [facility] [address] [address] Jun, Other chronic pain G89.29 [facility] [address] [address] Jun, [facility] [address] [address] Jun, [facility] [address] [address] Jun, Other chronic pain G89.29 [facility] [address] [place] [id number] [place] [address] Jun, [place] [address] [place] [id number] [place] [address] 30 May, 2016 Sweating abnormality L74.9 and Hot flash es R23.2 [place] [address] [address] May, [place] [address] [address] May, Other chronic pain G89.29 [place] [address] [address] Apr, Other chronic pain G89.29 ; Mild intermi ttent asthma without complication J45.20 and Rash R21 [place] [address] [place] [id number] [place] [address] Mar, Encounter to establish care Z76.89 ; Flakito campa with status migrainosus, not intractable, unspecified migraine type G43.901 ; Anxiety F41.9 and Moderate episode of recurrent major depressive disorder F33.1 IMMUNIZATIONS No Known Immunizations SOCIAL HISTORY Never Assessed REASON FOR VISIT Controlled 12/05 PLAN OF CARE VITAL SIGNS MEDICATIONS Medication Instructions Dosage Frequency Start Date End Date Duration S angelica Hydrocodone-Acetaminophen 10-325 MG Orally 3 times a day 1 tablet 8h Nov, 28 days Active RESULTS No Results PROCEDURES No Known procedures INSTRUCTIONS MEDICATIONS ADMINISTERED No Known Medications MEDICAL (GENERAL) HISTORY Type Description Date Medical History Anxiety Medical History Major depressive disorder, single episod e, unspecified Medical History Pain, unspecified Medical History asthma Surgical History cholecystectomy Surgical History section Surgical History partial hysterectomy Hospitalization History surgeries
--- OUTSIDE RECORDS SUMMARY | 2019-12-01 22:14 | XMS REPORT ---
Author Author [place]. Organization [employer] Address [address] [address] Care Team Providers Care Supervisor Packing Name Role Phone VICKI, PRINCE Unavailable Unavailable VICKI, PRINCE Unavailable INDIGO MONTAÑO Unavailable Unavailable SARA LEE Unavailable VICKI, PRINCE Unavailable VICKI, PRINCE Unavailable VICKI, PRINCE Unavailable KAYCE KUMAR Unavailable VICKI, PRINCE Unavailable VICKI, PRINCE Unavailable VICKI, PRINCE Unavailable VICKI, PRINCE Unavailable VICKI, PRINCE Unavailable VICKI, PRINCE Unavailable VICKI, PRINCE Unavailable VICKI, PRINCE Unavailable VICKI, PRINCE Unavailable VICKI, PRINCE Unavailable VICKI, PRINCE Unavailable VICKI, PRINCE Unavailable VICKI, PRINCE Unavailable VICKI, PRINCE Unavailable VICKI, PRINCE Unavailable VICKI, PRINCE Unavailable VICKI, PRINCE Unavailable VICKI, PRINCE Unavailable VICKI, PRINCE Unavailable VICKI, PRINCE Unavailable VICKI, PRINCE Unavailable VICKI, PRINCE Unavailable VICKI, PRINCE Unavailable VICKI, PRINCE Unavailable VICKI, PRINCE Unavailable VICKI, PRINCE Unavailable VICKI, PRINCE Unavailable VICKI, PRINCE Unavailable VICKI, PRINCE Unavailable YOKO YOUNG, JANELL Mata Unavailable Unavailable SHARON NEW Unavailable Unavailable BEAU SALDIVAR DO Unavailable Unavailable DELORIS YOUNG, CHARLES Baker Unavailable Unavailable VICKI, PRINCE S Unavailable Unavailable Unavailable Unavailable VICKI, PRINCE Unavailable Allergies The data below is from unstructured sources Substance Reaction Event Type N.K.D.A. Info Not Available Non Drug Allergy Substance Reaction Event Type Date Status N.K.D.A. Unknown Non Shai g Allergy Apr, Unknown No Information Medications The data below is from unstructured sourcesNo Known Medications Unknown Medications Unknown Medications Unknown Medications Unknown Medications Unknown Medications Unknown Medications Unknown Medications Unknown Medications No Known Medications No Known Medications No Known Medications No Known Medications No Known Medications No Known Medications No Known Medications Problems Active Problems Problem Normalized Date of Normalized Normalized Provider Fac ility Classification Problem(s) Problem Problem Problem Sta tus Onset/Resoluti Duration on Chronic Acute Chronic Active PRINCE COHEN Communit y obstructive exacerbation [address] [facility] Center pulmonary of chronic of [facility] disease and obstructive [place] ([address]) bronchiectasis airways (2 sources.) disease Translations: [ COPD exacerbation, - COPD exacerbation J44.1] Miscellaneous Adjustment Episodic Active PRINCE COHEN Co [facility] mental health insomnia [address] [facility] disorders (7 Translations: of [facility] sources.) [ - Adjustment [place] ([address]116) insomnia F51.02] Other Body Mass Chronic Active BEAU SALDIVAR [facility] Via nutritional; Index , DO [place] endocrine; and 39.0-39.9, Hospital - metabolic adult [place] disorders (4 (55626) sources.) Residual Chronic pain Episodic Active PRINCE VICKI Comm unity codes; Translations: [address] [place] [address] Center unclassified [ Other of [facility] (1 source.) chronic pain] [place] ([address]563) Other skin Eccrine sweat Episodic Active PRINCE VICKI Co mmunity disorders (10 disorder, [address] [facility] Center sources.) unspecified of [facility] Translations: [place] (78950) [ - Sweating abnormality L74.9, - Sweating abnormality L74.9] Other Encounter for Episodic Active PRINCE VICKI Com munity aftercare ([address] [place] [address] Center sources.) drug level of [facility] monitoring [place] ([address]704) Translations: [ - Therapeutic drug monitoring Z51.81] Menstrual Excessive or Chronic Active CHARLES ODGERS [facility] V ia disorders (10 frequent , MD [place] sources.) menstruation Hospital - Translations: [place] [ ([address]) [place]] Other Morbid Chronic Active PRINCE VICKI Communit y nutritional; (severe) [address] [place] [address] endocrine; and obesity due to of [facility] metabolic excess [place] (11976) disorders (1 calories source.) Translations: [ - Morbid obesity E66.01] Substance-rela Nicotine Chronic Active BEAU SALDIVAR [facility] Via tianna disorders dependence, , DO [place] (7 sources.) cigarettes, Hospital - uncomplicated [place] Translations: (26130) [ TOBACCO USE DISORDER] Other Obesity, Chronic Active BEAU HERNANDEZECH [facility] Via nutritional; unspecified , DO [place] endocrine; and Hospital - metabolic [place] disorders (6 (89053) sources.) Other nervous Other chronic Chronic Active PRINCE VICKI Community system pain [address] [place] [address] Center disorders (20 Translations: of [place] sources.) [ - Other [place] ([address]14) chronic pain G89.29, - Other chronic pain G89.29] Other female Other Chronic Active BEAU FENECH H V ia genital disorders of , DO [place] disorders (2 menstruation Hospital - sources.) and other [place] abnormal ([address]607) bleeding from female genital tract Diseases of Other lesions Episodic Active PRINCE VICKI C ommunity mouth; of oral mucosa [address] [place] [address] Translations: of [facility] dental (1 [ - Mouth pain [place] ([address]22) source.) K13.79] Other female Other Episodic Active CHARLES ODGERS [facility] Vi a genital specified , MD [place] disorders (2 noninflammator Hospital - sources.) y disorders of [place] vagina (19243) Other skin Rash and other Episodic Active PRINCE VICKI C ommunity disorders (20 nonspecific [address] [facility] sources.) skin eruption of [facility] Translations: [place] () [ - Rash R21, - Rash R21] Residual Tobacco use Episodic Active PRINCE VICKI Commu nity codes; Translations: [address] [place] [address] Center unclassified [ - Tobacco of [facility] (3 sources.) use Z72.0] [place] ([address]39) Other ear and Unspecified Chronic Active PRINCE VICKI C ommunity sense organ chronic otitis [address] [place] [address] r disorders (2 externa, right of [facility] sources.) ear [place] () Translations: [ Chronic otitis externa of right ear, unspecified type, - Chronic otitis externa of right ear, unspecified type H60.61] Other female Unspecified Chronic Active BEAU FENECH [facility] Via genital disorders of , DO [place] disorders (2 menstruation Hospital - sources.) and other [place] abnormal ([address]15) bleeding from female genital tract Past or Other Problems Problem Normalized Date of Normalized Normalized Provider Fac ility Classification Problem(s) Problem Problem Problem Sta tus Onset/Resoluti Duration on Deficiency and Anemia, Episodic Completed SHARON BERNOT [facility] Via other anemia unspecified [place] (3 sources.) [facility] [place] ([address]) External cause Bitten by dog, Episodic Completed SHARON BERNOT [facility] Via codes: initial [place] Natural/enviro encounter [facility] (3 [place] sources.) (21692) Ovarian cyst Corpus luteum Episodic Completed BEAU FENECH [facility] Via (2 sources.) cyst or , DO [place] hematoma Hospital - [place] (43308) Deficiency and Iron Episodic Completed BEAU FENECH [facility] Via other anemia deficiency , DO [place] (4 sources.) anemia, Hospital - unspecified [place] ([address]36) Open wounds of Open bite, Episodic Completed SHARON BERNOT [facility] Via extremities (6 right knee, [place] sources.) initial Hospital - encounter [place] (49774) Other Peritoneal Episodic Completed BEAU FENECH [facility] Vi a gastrointestin adhesions , DO [place] al disorders (postoperative Hospital - (2 sources.) ) [place] (postinfection (04079) ) External cause Unspecified Episodic Completed SHARON BERNOT [facility] Via codes: Place place in [facility] of occurrence [facility] - (3 sources.) (private) [place] house as the ([address]) place of occurrence of the external cause Procedures Procedure Normalized Procedure Procedure Result Performer Facility Date 06-21-2017 Comprehen metabolic no information no name (no phon e) [facility] 06-21-2017 [place] (12467) - 06-21-2017 12-01-2017 Drug screen quant no information no name (no phone) [facility] amphetamines 1 or 2 [facility] (29611) 10-17-2018 Drug tst prsmv no information no name (no phone) [facility] instrmnt chem [facility] analyzer pr date [place] (78092) 12-01-2017 Drug tst prsmv no information no name (no phone) [facility] instrmnt chem [facility] analyzer pr date [place] (85559) 06-21-2017 Lipid panel no information no name (no phone) Comm [facility] 06-21-2017 [place] (45888) - 06-21-2017 06-21-2017 No Charge no information no name (no phone) Comm [facility] 06-21-2017 [place] (89379) - 06-21-2017 06-21-2017 Routine venipuncture no information no name (no andrew ne) [facility] 06-21-2017 [place] (60204) - 06-21-2017 Immunizations Normalized Immunization Date Notes Care Provider Facili ty Immunization influenza, seasonal, 06-20-2019 no information no name Co [facility] injectable Center [facility] (72512) tetanus toxoid, 04-12-2019 no information no name [facility] Via [facility] diphtheria [facility] toxoid, and (72721) acellular pertussis vaccine, adsorbed Results Test Name Value Interpretation Reference Range Date Time Fa cility (Normalized) (Normalized) (Medline Reference) ameritox on null NEGATED: no information (no code) [facility] Highlighted row Center of Laboratory [facility] Studies (95808) No panel information on 2019-10-02 1-Hydroxymidazol no information (no code) [facility] am (U) [facility] [Mass/Vol] [facility] () 1-Uquuhozisr-7,5 no information (no code) [facility] -Dimethyl-3,3-Di [facility] phenylpyrrolidin [facility] e (EDDP) (U) () [Mass/Vol] 7-Aminoclonazepa no information (no code) [facility] m (U) [Mass/Vol] [facility] (48474) Abnormal no information (no code) On license of [facility] Specimen [facility] Validity Test: [facility] () Albumin 4.6 g/dL (N) 3.4 - 5.4 g/dL [facility] [Mass/Vol] [facility] () Albumin/Globulin 1.6 {ratio} (N) 1 - 2.5 {ratio} Comm [facility] [Mass ratio] [facility] () ALP [Catalytic 88 U/L (N) 44 - 147 U/L [facility] activity/Vol] [facility] (97931) Alpha no information (no code) [facility] hydroxyalprazola [facility] m (U) [Mass/Vol] [facility] (90430) Alpha no information (no code) [facility] hydroxytriazolam [facility] (U) [Mass/Vol] [facility] (03605) ALT [Catalytic 12 U/L (N) 4 - 40 U/L [facility] ealth activity/Vol] [facility] (01155) Amobarbital (U) no information (no code) [facility] [Mass/Vol] [facility] (64806) Amphetamine (U) no information (no code) [facility] [Mass/Vol] [facility] (99281) Amphetamines Ql no information (no code) [facility] (U) [facility] (61991) AST [Catalytic 13 U/L (N) 10 - 34 U/L [facility] activity/Vol] [facility] (46654) Barbiturates Ql no information (no code) [facility] (U) [facility] (75104) Benzodiazepines no information (no code) [facility] Ql (U) [facility] (13302) Benzoylecgonine no information (no code) [facility] (U) [Mass/Vol] [facility] (11972) Benzoylecgonine no information (no code) [facility] Ql (U) [facility] (90273) Bilirubin 0.4 mg/dL (N) 0.1 - 1.2 mg/dL [facility] [Mass/Vol] [facility] (35662) Butalbital (U) no information (no code) [facility] [Mass/Vol] [facility] (91770) Calcium 9.7 mg/dL (N) 8.5 - 10.2 mg/dL [facility] [Mass/Vol] [facility] (92823) Chloride 101 mmol/L (N) 95 - 106 mmol/L [facility] [Moles/Vol] [facility] (76457) Cholesterol 215 mg/dL (H) 180 - 200 mg/dL [facility] [Mass/Vol] [facility] (60241) Cholesterol in 38 mg/dL (L) On license of [facility] HDL [Mass/Vol] [facility] (00014) Cholesterol in 140 mg/dL (H) 0 - 100 mg/dL [facility] LDL [Mass/Vol] [facility] (59084) Cholesterol non 177 mg/dL (H) [facility] HDL [Mass/Vol] [facility] (43054) Cholesterol.tota 5.7 {ratio} (H) [facility] l/Cholesterol in [facility] HDL [Mass ratio] [facility] (46316) CO2 [Moles/Vol] 30 mmol/L (N) 23 - 29 mmol/L [facility] (72814) Codeine (U) no information (no code) [facility] [Mass/Vol] [facility] (74359) COMMENT no information (no code) [facility] (11689) Creatinine (U) 0 mg/dL (no code) [facility] [Mass/Vol] [facility] (84419) Creatinine (U) 286.1 mg/dL (N) [facility] [Mass/Vol] [facility] (07325) Creatinine 0.98 mg/dL (N) [facility] [Mass/Vol] [facility] (27164) Drug screen no information (no code) [facility] comment (U) [facility] [Interp] [facility] (68877) GFR/1.73 sq M 82 (N) 90 - 120 [facility] predicted among mL/min/{1.73_m2} mL/min/{1.73_m2} [facility] blacks MDRD [facility] (S/P/Bld) [Vol (76674) rate/Area] GFR/1.73 sq 71 (N) 90 - 120 [facility] M.predicted MDRD mL/min/{1.73_m2} mL/min/{1.73_m2} [facility] (S/P/Bld) [Vol [facility] rate/Area] (77340) Globulin (S) 2.9 g/dL (N) 2 - 3.5 g/dL [facility] ealt [Mass/Vol] [facility] (84364) Glucose 81 mg/dL (N) 60 - 125 mg/dL [facility] [Mass/Vol] [facility] (52114) Hydrocodone (U) no information (no code) [facility] [Mass/Vol] [facility] (03500) Hydromorphone no information (no code) [facility] (U) [Mass/Vol] [facility] (53363) Hydroxyethylflur no information (no code) [facility] azepam (U) [facility] [Mass/Vol] [facility] (11674) Lorazepam (U) no information (no code) [facility] [Mass/Vol] [facility] (30782) Methadone (U) no information (no code) [facility] [Mass/Vol] [facility] (89319) Methadone Ql (U) no information (no code) [facility] (17404) Methamphetamine 0 ug/mL (no code) [facility] (U) [Mass/Vol] [facility] (17610) Morphine (U) no information (no code) [facility] [Mass/Vol] [facility] (95723) Nordiazepam (U) no information (no code) [facility] [Mass/Vol] [facility] (00913) Norhydrocodone no information (no code) [facility] Confirm (U) [facility] [Mass/Vol] [facility] (82266) Noroxycodone no information (no code) [facility] Confirm (U) [facility] [Mass/Vol] [facility] (59057) Opiates Ql (U) no information (no code) [facility] (60714) Oxazepam (U) no information (no code) [facility] [Mass/Vol] [facility] (01552) Oxidants Ql (U) no information (no code) [facility] (00462) Oxycodone (U) no information (no code) [facility] [Mass/Vol] [facility] (67996) Oxycodone Ql (U) no information (no code) [facility] (82109) Oxymorphone (U) no information (no code) [facility] [Mass/Vol] [facility] (04259) Pentobarbital no information (no code) [facility] (U) [Mass/Vol] [facility] (24287) pH (U) 0 [pH] (no code) 4.6 - 8 [pH] [facility] (43830) pH (U) 5.9 [pH] (N) 4.6 - 8 [pH] Community He [facility] (30813) Phencyclidine no information (no code) [facility] (U) [Mass/Vol] [facility] (55232) Phencyclidine Ql no information (no code) [facility] (U) [facility] (18852) Phenobarbital no information (no code) [facility] (U) [Mass/Vol] [facility] (72550) Potassium 4.9 mmol/L (N) 3.7 - 5.2 mmol/L [facility] [Moles/Vol] [facility] (88251) Prescribed Drug no information (no code) [facility] 1 [facility] (03797) Prescribed Drug no information (no code) [facility] 2 [facility] (87749) Prescribed Drug no information (no code) [facility] 3 [facility] (49260) Prescribed Drug no information (no code) [facility] 4 [facility] (66460) Prescribed Drug no information (no code) [facility] 5 [facility] (29596) Protein 7.5 g/dL (N) 6.4 - 8.3 g/dL [facility] [Mass/Vol] [facility] (19632) Reference lab no information (no code) [facility] Unsp time [facility] lab test) [ID] (60016) Secobarbital (U) no information (no code) [facility] [Mass/Vol] [facility] (43245) Sodium 136 mmol/L (N) 135 - 145 mmol/L [facility] [Moles/Vol] [facility] (59652) Specific gravity no information (no code) [facility] (U) [Rel [place] [facility]] [facility] (44419) Temazepam (U) no information (no code) [facility] [Mass/Vol] [facility] (54027) Tetrahydrocannab no information (no code) [facility] inol (U) [facility] [Mass/Vol] [facility] (53099) Tetrahydrocannab no information (no code) [facility] inol Ql (U) [facility] (97393) Triglyceride 231 mg/dL (H) 0 - 150 mg/dL [facility] [Mass/Vol] [facility] (01118) TSH Qn 1.29 m[IU]/L (N) 0.4 - 4 m[IU]/L [facility] (42049) Urea nitrogen 11 mg/dL (N) 7 - 20 mg/dL [facility] [Mass/Vol] [facility] (45872) Urea NOT APPLICABLE (no code) [facility] nitrogen/Creatin [facility] [Mass ratio] [facility] (20750) No panel information on 2019-02-06 1-Hydroxymidazol no information (no code) [facility] am (U) [facility] [Mass/Vol] [facility] (17291) 7-Aminoclonazepa no information (no code) [facility] m (U) [Mass/Vol] [facility] (34662) Alpha no information (no code) [facility] hydroxyalprazola [facility] m (U) [Mass/Vol] [facility] (04480) Alpha no information (no code) [facility] hydroxytriazolam [facility] (U) [Mass/Vol] [facility] (10154) Amphetamines Ql no information (no code) [facility] (U) [facility] (21272) Barbiturates Ql no information (no code) [facility] th (U) [facility] (14684) Benzodiazepines no information (no code) [facility] Ql (U) [facility] (12665) Benzoylecgonine no information (no code) [facility] Ql (U) [facility] (34006) Codeine (U) no information (no code) [facility] [Mass/Vol] [facility] (06744) COMMENT no information (no code) [facility] (56824) Creatinine (U) 194.6 mg/dL (no code) [facility] [Mass/Vol] [facility] (47310) Hydrocodone (U) 554 (H) [facility] [Mass/Vol] [facility] (96147) Hydromorphone 151 (H) [facility] (U) [Mass/Vol] [facility] (67206) Hydroxyethylflur no information (no code) [facility] azepam (U) [facility] [Mass/Vol] [facility] (68754) Lorazepam (U) no information (no code) [facility] [Mass/Vol] Center [facility] (72456) medMATCH CONSISTENT (no code) [facility] Aminoclonazepam Center [facility] (06333) medMATCH CONSISTENT (no code) [facility] Amphetamines [facility] (97341) medMATCH aOH CONSISTENT (no code) [facility] alprazolam [facility] (45871) medMATCH aOH CONSISTENT (no code) [facility] midazolam [facility] (19178) medMATCH aOH CONSISTENT (no code) [facility] triazolam [facility] (09448) medMATCH CONSISTENT (no code) [facility] Barbiturates [facility] (73999) medMATCH Cocaine CONSISTENT (no code) [facility] Metab [facility] (07216) medMATCH Codeine CONSISTENT (no code) [facility] (42340) medMATCH CONSISTENT (no code) [facility] Hydrocodone [facility] (31027) medMATCH CONSISTENT (no code) [facility] Hydromorphone [facility] (16822) medMATCH CONSISTENT (no code) [facility] Lorazepam [facility] (78014) medMATCH CONSISTENT (no code) [facility] Marijuana Metab [facility] (07221) medMATCH CONSISTENT (no code) [facility] Methadone Metab [facility] (31070) medMATCH CONSISTENT (no code) [facility] Morphine Center [facility] (74583) medMATCH CONSISTENT (no code) [facility] Nordiazepam [facility] (79997) medMATCH CONSISTENT (no code) [facility] Norhydrocodone [facility] (12671) medMATCH [place],Et CONSISTENT (no code) [facility] flurazepam [facility] (73449) medMATCH CONSISTENT (no code) [facility] Oxazepam [facility] (37689) medMATCH CONSISTENT (no code) [facility] Oxycodone [facility] (66912) medMATCH CONSISTENT (no code) [facility] Phencyclidine [facility] (63117) medMATCH CONSISTENT (no code) [facility] Temazepam [facility] (53711) Methadone Ql (U) no information (no code) [id number] Morphine (U) no information (no code) [facility] [Mass/Vol] [facility] ([id number]) Nordiazepam (U) no information (no code) [facility] [Mass/Vol] [facility] (16722) Norhydrocodone 1023 (H) [facility] Confirm (U) [facility] [Mass/Vol] [facility] (83548) Opiates Ql (U) no information (A) [facility] (66136) Oxazepam (U) no information (no code) [facility] [Mass/Vol] [facility] (53161) Oxidants Ql (U) no information (no code) [facility] (13333) Oxycodone Ql (U) no information (no code) [facility]68310[facility] pH (U) 6.64 [pH] (no code) 4.6 - 8 [pH] [facility] (08316) Phencyclidine Ql no information (no code) [facility] (U) [facility] (99092) Prescribed Drug Hydrocodone (no code) [facility] 1 [facility] (88997) Temazepam (U) no information (no code) [facility] [Mass/Vol] [facility] (86980) Tetrahydrocannab no information (no code) [facility] inol Ql (U) [facility] (01250) No panel information on 2017-12-01 Alphahydroxyalpr no information (no code) [facility] azolam [facility] (36570) Alphahydroxymida no information (no code) [facility] zolam [facility] (37245) Alphahydroxytria no information (no code) [facility] (57422) Aminoclonazepam no information (no code) [facility] (31037) Codeine no information (no code) [facility] (53948) Ethyl no information (no code) [facility] (ET) [facility] (54136) Ethyl Sulfate no information (no code) On license of [facility] (ETS) [facility] (43426) Hydrocodone 1513 (H) [facility] (90066) Hydromorphone 140 (H) [facility] (67743) Hydroxyethylflur no information (no code) [facility] azepam [facility] (67294) Lorazepam no information (no code) [facility] (50475) Morphine no information (no code) [facility] (94892) Nordiazepam no information (no code) [facility] (44310) Norhydrocodone 2843 (H) [facility] (10599) Oxazepam no information (no code) [facility] (69994) Temazepam no information (no code) [facility] (36019) 6 Acetylmorphine no information (no code) [facility] (81148) Alcohol no information (no code) [facility] (21868) Amphetamine no information (no code) [facility] (45758) Amphetamines Ql no information (no code) [facility] (U) [facility] (69736) Benzodiazepines no information (no code) [facility] Screen Ql (U) [facility] (12310) Benzoylecgonine no information (no code) [facility] th Ql (U) [facility] (95063) Buprenorphine no information (no code) [facility] (99001) COMMENT no information (no code) [facility] (51921) Creatinine mass 315.7 mg/dL (no code) [facility] conc (U) [facility] (53063) MDMA no information (no code) [facility] (34814) medMATCH 6 CONSISTENT (no code) [facility] Acetylmorphine [facility] (76752) medMATCH CONSISTENT (no code) [facility] Aminoclonazepam [facility] (02023) medMATCH CONSISTENT (no code) [facility] Amphetamine [facility] (43305) medMATCH CONSISTENT (no code) [facility] Amphetamines [facility] (66388) medMATCH aOH CONSISTENT (no code) [facility] alprazol[facility] (66854) medMATCH aOH CONSISTENT (no code) [facility] midazolam [facility] (99901) medMATCH aOH CONSISTENT (no code) [facility] triazolam [facility] (52909) medMATCH CONSISTENT (no code) [facility] Buprenorphine [facility] (73499) medMATCH Cocaine CONSISTENT (no code) [facility] Metab [facility] (42298) medMATCH Codeine CONSISTENT (no code) [facility] (33518) medMATCH ETG CONSISTENT (no code) [facility] (46001) medMATCH ETS CONSISTENT (no code) [facility] (89116) medMATCH INCONSISTENT (no code) [facility] Hydrocodone [facility] (69293) medMATCH INCONSISTENT (no code) [facility] Hydromorphone [facility] (53929) medMATCH CONSISTENT (no code) [facility] Lorazepam [facility] (28503) medMATCH CONSISTENT (no code) [facility] Marijuana Metab [facility] (32711) medMATCH MDMA CONSISTENT (no code) [facility] (21781) medMATCH CONSISTENT (no code) [facility] Methamphetamine [facility] (54133) medMATCH CONSISTENT (no code) [facility] Morphine [facility] (55783) medMATCH CONSISTENT (no code) [facility] Nordiazepam [facility] (82871) medMATCH INCONSISTENT (no code) [facility] Norhydrocodone [facility] (26232) medMATCH [place],Et CONSISTENT (no code) [facility] flurazepam [facility] (37513) medMATCH CONSISTENT (no code) [facility] Oxazep[facility] (86883) medMATCH CONSISTENT (no code) [facility] Oxycodone [facility] (05033) medMATCH CONSISTENT (no code) [facility] Temazepam [facility] (18777) Methamphetamine no information (no code) [facility] (52672) Opiates Ql (U) no information (A) [facility] (70160) Oxidant no information (no code) [facility] (52594) Oxycodone no information (no code) [facility] (70604) pH (Bld) 6.25 [pH] (no code) 7.38 - 7.42 [pH] [facility] (58497) Tetrahydrocannab no information (no code) [facility] inol Ql (U) [facility] (98912) No panel information on 2017-06-22 Albumin 4.3 g/dL (no code) 3.4 - 5.4 g/dL 06-22-2017 Not Natalya ilable [Mass/Vol] 10:580400 (36526) Albumin/Globulin 1.4 {ratio} (no code) 1 - 2.5 {ratio} 7 Not Available [Mass ratio] 10:580400 (42302) ALP [Catalytic 86 U/L (no code) 44 - 147 U/L 06-22-2017 Not Available activity/Vol] 10:580400 (08965) ALT [Catalytic 19 U/L (no code) 4 - 40 U/L 06-22-2017 Not Av ailable activity/Vol] 10:580400 (26934) AST [Catalytic 19 U/L (no code) 10 - 34 U/L 06-22-2017 Not A vailable activity/Vol] 10:580400 (30557) Bilirubin mg/dL (no code) 0.1 - 1.2 mg/dL 06-22-2017 Not Av ailable [Mass/Vol] 10:580400 (90165) Calcium 9.6 mg/dL (no code) 8.5 - 10.2 mg/dL 06-22-2017 Not A vailable [Mass/Vol] 10:580400 (43305) Chloride 98 mmol/L (no code) 95 - 106 mmol/L 06-22-2017 Not Av ailable [Moles/Vol] 10:580400 (07801) Cholesterol 192 mg/dL (no code) 180 - 200 mg/dL 06-22-2017 Not Available [Mass/Vol] 10:580400 (13506) Cholesterol in 30 mg/dL (L) 06-22-2017 Not Availab le HDL [Mass/Vol] 10:580400 (48548) Cholesterol in Comment (no code) 06-22-2017 Not Availab le LDL [Mass/Vol] 10:580400 (20086) Cholesterol in Comment (no code) 06-22-2017 Not Availab le VLDL [Mass/Vol] 10: (02398) CO2 [Moles/Vol] 23 mmol/L (no code) 23 - 29 mmol/L 06-22-2017 N ot Available 10: (03416) Creatinine 0.74 mg/dL (no code) 06-22-2017 Not Available [Mass/Vol] 10:58 (64956) GFR/1.73 sq M 117 (no code) 90 - 120 06-22-2017 Not Avai lable predicted among mL/min/{1.73_m2} mL/min/{1.73_m2} 10: (08956) blacks MDRD (S/P/Bld) [Vol rate/Area] GFR/1.73 sq M 102 (no code) 90 - 120 06-22-2017 Not Avai lable predicted among mL/min/{1.73_m2} mL/min/{1.73_m2} 10: (21988) non-blacks MDRD (S/P/Bld) [Vol rate/Area] Globulin (S) 3.1 g/dL (no code) 2 - 3.5 g/dL 06-22-2017 Not Av ailable [Mass/Vol] 10:58 (92523) Glucose 81 mg/dL (no code) 60 - 125 mg/dL 06-22-2017 Not Natalya ilable [Mass/Vol] 10:58 (17172) Potassium 4.2 mmol/L (no code) 3.7 - 5.2 mmol/L 06-22-2017 Not Available [Moles/Vol] 10:580 (64362) Protein 7.4 g/dL (no code) 6.4 - 8.3 g/dL 06-22-2017 Not Natalya ilable [Mass/Vol] 10:580 (03656) Sodium 137 mmol/L (no code) 135 - 145 mmol/L 06-22-2017 Not Available [Moles/Vol] 10:580400 (19360) Triglyceride 488 mg/dL (H) 0 - 150 mg/dL 06-22-2017 Not A vailable [Mass/Vol] 10:580 (09919) Urea nitrogen 6 mg/dL (no code) 7 - 20 mg/dL 06-22-2017 Not A vailable [Mass/Vol] 10:0 (47457) Urea 8 mg/mg (L) 6 - 22 mg/mg 06-22-2017 Not Avail able nitrogen/Creatin 10:580400 (94900) ine [Mass ratio] lipid panel on 2017-06-21 Cholesterol 192 mg/dL (no code) 0 - 240 mg/dL 06-21-2017 [facility] ity Health 13:00-0400 [facility] (24909) Comment: no information (no code) 06-21-2017 [facility] 13:00-0400 [facility] (29272) HDL Cholesterol 30 mg/dL (no code) 06-21-2017 [facility] 13:000400 [facility] (53390) LDL Cholesterol no information (no code) 06-21-2017 [facility] 13:00-0400 [facility] (76940) Triglyceride 488 mg/dL (no code) 0 - 150 mg/dL 06-21-2017 [facility] 13:00-0400 [facility] (31679) VLDL Cholesterol no information (no code) 06-21-2017 [facility] 13:00-0400 [facility] (83787) cmp on 2017-06-21 Alanine 19 U/L (no code) 10 - 40 U/L 06-21-2017 [facility] aminotransferase 13:000400 [facility] (ALT) [facility] (94104) Albumin 4.3 g/dL (no code) 3.5 - 5.5 g/dL 06-21-2017 [facility] 13:00-0400 [facility] (53158) Albumin/Globulin 1.4 {ratio} (no code) 0.8 - 2 {ratio} 7 [facility] Ratio 13:00-0400 [facility] (94811) Alkaline 86 U/L (no code) 44 - 147 U/L 06-21-2017 [facility] phosphatase 13:000400 [facility] (ALP) [facility] (13321) Aspartate 19 U/L (no code) 10 - 34 U/L 06-21-2017 [facility] aminotransferase 13:00-0400 Center of (AST) [facility] (94020) Bilirubin mg/dL (no code) 0.3 - 1.9 mg/dL 06-21-2017 [facility] (total) 13:00-0400 [facility] (88110) BUN/Creatinine 8 mg/mg (no code) 10 - 20 mg/mg 06-21-2017 [facility] Ratio 13:00-0400 [facility] (92757) Calcium 9.6 mg/dL (no code) 9 - 11 mg/dL 06-21-2017 [facility] 13:000400 [facility] (00199) Chloride 98 mmol/L (no code) 95 - 106 mmol/L 06-21-2017 [facility] 13:00-0400 [facility] (92707) CO2 23 mmol/L (no code) 23 - 29 mmol/L 06-21-2017 Replaced by [facility] 13:00-0400 [facility] (89819) Creatinine 0.74 mg/dL (no code) 06-21-2017 [facility] 13:00-0400 [facility] (69240) eGFR (black) 117 (no code) 90 - [id number] 06-21-2017 [facility] mL/min/{1.73_m2} mL/min/{1.73_m2} 13:00-0400 [facility] (47757) eGFR (non-black) 102 (no code) 90 - [id number] 06-21-2017 [facility] mL/min/{1.73_m2} mL/min/{1.73_m2} 13:00-0400 [facility] (29004) Globulin 3.1 g/dL (no code) 2.1 - 3.9 g/dL 06-21-2017 Replaced by [facility] 13:00-0400 [facility] (42698) Glucose 81 mg/dL (no code) 60 - 125 mg/dL 06-21-2017 Replaced by [facility] 13:00-0400 [facility] (38424) Potassium 4.2 mmol/L (no code) 3.5 - 5.1 mmol/L 06-21-2017 [facility] 13:00-0400 [facility] (37236) Protein 7.4 g/dL (no code) 6.4 - 8.3 g/dL 06-21-2017 Replaced by [facility] 13:00-0400 [facility] (59391) Sodium 137 mmol/L (no code) 135 - 147 mmol/L 06-21-2017 [facility] 13:00-0400 [facility] (05954) Urea nitrogen 6 mg/dL (no code) 7 - 20 mg/dL 06-21-2017 [facility] 13:00-0400 [facility] (65546) Vital Signs Vital Sign Value Interpretation Reference Date Time Care [facility] (Normalized) (Normalized) Range BMI (Body Mass 58.24 kg/m2 (no code) 15 - 25 kg/m2 10-17-2018 B LORENZO VICKI Community Index) 17:00-0500 71911 [facility] (12005) BMI (Body Mass 59.69 kg/m2 (no code) 15 - 25 kg/m2 12-07-2017 B LORENZO VICKI Community Index) 12:40-0400 96851 [facility] (04909) BMI (Body Mass 59.09 kg/m2 (no code) 15 - 25 kg/m2 12-01-2017 B LORENZO VICKI Community Index) 11:40-0400 24767 [facility] (65340) BMI (Body Mass 57.61 kg/m2 (no code) 15 - 25 kg/m2 06-21-2017 B LORENZO VICKI Community Index) 11:40-0400 30318 [facility] (26985) Body 97.9 [degF] (no code) 97.8 - 99.0 10-17-2018 [facility] Temperature [degF] 17:00-[address] [place] [address] (30406) Body 98.5 [degF] (no code) 97.8 - 99.0 12-07-2017 [facility] Community Temperature [degF] 12:40-0400 03743 [facility] (77705) Body 98.3 [degF] (no code) 97.8 - 99.0 12-01-2017 [facility] Temperature [degF] 11:40-[id number] [place] [address] (08619) Body 98.2 [degF] (no code) 97.8 - 99.0 06-21-2017 [facility] Temperature [degF] 11:40-[address] [place] [address] (94688) Height 134.62 cm (no code) cm 10-17-2018 [facility] 17:00-[address] [place] [address] (52357) Height 134.62 cm (no code) cm 12-07-2017 [facility] 12:40-[address] [place] [address] (19182) Height 134.62 cm (no code) cm 12-01-2017 [facility] 11:40-[address] [place] [address] (29951) Height 134.62 cm (no code) cm 06-21-2017 [facility] 11:40-[id number] [place] [address] ([id number]) Pulse Oximetry (no code) 10-17-[address] [facility] 17:00-[id number] [place] [address] ([id number]) Pulse Oximetry 0 % (no code) 95 - 100 % 12-07-2017 [facility] 12:40-[address] [place] [address] ([id number]) Weight 105.55 kg (no code) kg 10-17-2018 [facility] 17:00-[address] [place] [address] (82458) Weight 108.18 kg (no code) kg 12-07-2017 [facility] 12:40-[id number] [place] [address] (37175) Weight 107.09 kg (no code) kg 12-01-2017 [facility] 11:40-[id number] [place] [address] ([id number]) Weight 104.42 kg (no code) kg 06-21-2017 PRINCE VICKI [facility] 11:40-0400 99829 [facility] (81201) Interventions No Information Plan of Treatment Normalized Care Care Detail Care Activity Date Care Provider F acility Activity ([facility]) Chronic Health [facility] 11-23-2018 PRINCE BARRAGAN N [address] [facility] ([id number]) (PSY-INTAKE) no information 06-15-2018 [facility] COHEN [id number] [facility] Int[facility] ([id number]) Goals No Information Social History No Information Functional Status The data below is from unstructured sources Query Response Date Magdaleno rded Comprehension Ability Understands Co ncepts December 27, 2014 11:05am Mental Status No Information Encounters Encounter Normalized Encounter Encounter Diagnosis Care Provi wilfred Organization Date Type 10-17-2018 ([facility]) Chronic Health Essential (primary) PRINCE AMADOR (no [facility] - Maintenance hypertension phone) (no phone) 10-17-2018 - 10-17-2018 05-30-2018 ([facility]) Chronic Health Essential (primary) PRINCE AMADOR (no [facility] - Maintenance hypertension phone) (no phone) 05-30-2018 - 05-30-2018 10-18-2019 [facility] Chronic obstructive NAOMI ASHLEE CURTIS (no [facility] CARE pulmonary disease with phone) CARE (n o phone) (acute) exacerbation 09-15-2019 [facility] Other lesions of oral NAOMI CUNHA (no [facility] CARE mucosa phone) CARE (no phone) 06-20-2019 [facility] Encounter for PRINCE COHEN (n o [facility] immunization phone) CARE (no phone) 10-02-2019 [facility] Essential (primary) PRINCE CROSS (no [facility] hypertension phone) (no phone) 08-24-2019 [facility] no information PRINCE COHEN (no [facility] phone) (no phone) 07-31-2019 [facility] Major depressive PRINCE 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, 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 02-20-2019 [facility] Adjustment disorder MARITZASADIA WING (no [facility] with mixed anxiety and phone) (no phone) depressed mood 02-06-2019 [facility] Encounter for PRINCE COHEN (no [facility] therapeutic drug level phone) (no phone) monitoring 02-06-2019 [facility] Major depressive MARITZA CRUZ N (no [facility] disorder, recurrent, phone) (no phone) moderate 03-25-2018 [facility] Other chronic pain PRINCE AMADOR (no [facility] - phone) (no phone) 03-25-2018 - 03-25-2018 04-12-2019 Emergency department no information no name (no andrew ne) no organization name patient visit (no phone) 04-12-2019 Emergency department no information no name (no andrew ne) no organization name - patient visit (no phone) 04-12-2019 11-05-2013 Emergency department no information no name (no andrew ne) no organization name - patient visit (no phone) 11-05-2013 11-05-2013 Emergency department no information no name (no andrew ne) no organization name - patient visit (no phone) 11-05-2013 12-07-2017 Patient encounter no information no name (no phone) no organization name (no phone) 12-01-2017 Patient encounter no information no name (no phone) no organization name (no phone) 10-20-2017 Patient encounter no information no name (no phone) no organization name (no phone) Patient encounter no information no name (no phone) no organ ization name (no phone) 10-02-2019 Patient encounter no information (no phone) [facility] (no phone) 08-24-2019 Patient encounter no information no name (no phone) no organization name procedure (no phone) 07-31-2019 Patient encounter no information no name (no phone) no organization name procedure (no phone) 06-20-2019 Patient encounter no information no name (no phone) no organization name procedure (no phone) 05-31-2019 Patient encounter Major depressive DANG DUFFYJUANITA (no [facility] procedure disorder, recurrent, phone) (no phone ) moderate 04-12-2019 Patient encounter no information no name (no phone) no organization name procedure (no phone) 02-06-2019 Patient encounter no information no name (no phone) no organization name procedure (no phone) 10-17-2018 Patient encounter no information no name (no phone) no organization name procedure (no phone) 03-04-2015 Patient encounter no information no name (no phone) no organization name procedure (no phone) 12-27-2014 Patient encounter no information no name (no phone) no organization name - procedure (no phone) 12-28-2014 12-04-2014 Patient encounter no information no name (no phone) no organization name - procedure (no phone) 03-02-2015 05-10-2014 Patient encounter no information no name (no phone) no organization name - procedure (no phone) 05-10-2014 11-03-2019 Telephone encounter no information PRINCE VICKI ( no [facility] phone) (no phone) 10-18-2019 Telephone encounter no information PRINCE VICKI ( no [facility] phone) (no phone) 10-16-2019 Telephone encounter no information PRINCE VICKI ( no [facility] phone) (no phone) 10-04-2019 Telephone encounter Pure hyperglyceridemia PRINCE Chase HUDSON (no [facility] phone) (no phone) 09-26-2019 Telephone encounter Essential (primary) PRINCE BREN NAN (no [facility] hypertension phone) (no phone) 09-19-2019 Telephone encounter Other chronic pain PRINCE BRENN AN (no [facility] phone) (no phone) 09-15-2019 Telephone encounter no information PRINCE VICKI ( no [facility] phone) (no phone) 09-05-2019 Telephone encounter no information PRINCE VICKI ( no [facility] phone) (no phone) 08-24-2019 Telephone encounter Essential (primary) PRINCE BREN NAN (no [facility] hypertension phone) (no phone) 08-21-2019 Telephone encounter Other chronic pain PRINCE BRENN AN (no [facility] phone) (no phone) 08-11-2019 Telephone encounter no information PRINCE VICKI ( no [facility] phone) (no phone) 08-08-2019 Telephone encounter no information PRINCE VICKI ( no [facility] phone) (no phone) 08-04-2019 Telephone encounter no information PRINCE VICKI ( no [facility] phone) (no phone) 08-02-2019 Telephone encounter no information PRINCE VICKI ( no [facility] phone) (no phone) 07-27-2019 Telephone encounter Other chronic pain PRINCE BRENN AN (no [facility] phone) (no phone) 07-07-2019 Telephone encounter no information PRINCE VICKI ( no [facility] phone) (no phone) 06-28-2019 Telephone encounter no information PRINCE VICKI ( no [facility] phone) (no phone) 06-26-2019 Telephone encounter Other chronic pain PRINCE BRENN AN (no [facility] phone) (no phone) 06-16-2019 Telephone encounter no information PRINCE VICKI ( no [facility] phone) (no phone) 06-07-2019 Telephone encounter no information PRINCE VICKI ( no [facility] phone) (no phone) 06-05-2019 Telephone encounter no information PRINCE VICKI ( no [facility] phone) (no phone) 05-30-2019 Telephone encounter Other chronic pain PRINCE BRENN AN (no [facility] phone) (no phone) 05-10-2019 Telephone encounter no information PRINCE VICKI ( no [facility] phone) (no phone) 05-02-2019 Telephone encounter Other chronic pain PRINCE BRENN AN (no [facility] phone) (no phone) 04-12-2019 Telephone encounter no information PRINCE VICKI ( no [facility] phone) (no phone) 04-06-2019 Telephone encounter Other chronic pain PRINCE BRENN AN (no [facility] phone) (no phone) 03-17-2019 Telephone encounter Essential (primary) PRINCE BREN NAN (no [facility] hypertension phone) (no phone) 03-13-2019 Telephone encounter Other chronic pain PRINCE BRENN AN ([facility] (no phone) 03-07-2019 Telephone encounter Adjustment insomnia PRINCE HAFSAN NAN (no [facility] phone) (no phone) 03-06-2019 Telephone encounter Other chronic pain PRINCE BRENN AN ([facility] (no phone) 03-03-2019 Telephone encounter Other chronic pain PRINCE BRENN AN (no [facility] - phone) (no phone) 03-03-2019 - 03-03-2019 02-27-2019 Telephone encounter Other chronic pain PRINCE BRENN AN (no [facility] phone) (no phone) 02-23-2019 Telephone encounter Other chronic pain PRINCE BRENN AN (no [facility] phone) (no phone) 01-26-2019 Telephone encounter Other chronic pain PRINCE BRENN AN (no [facility] phone) (no phone) 12-29-2018 Telephone encounter Other chronic pain PRINCE BRENN AN (no [facility] phone) (no phone) 12-02-2018 Telephone encounter Other chronic pain PRINCE BRENN AN (no [facility] phone) (no phone) 11-03-2018 Telephone encounter Other chronic pain PRINCE BRENN AN (no [facility] phone) (no phone) 10-06-2018 Telephone encounter Other chronic pain PRINCE BRENN AN (no [facility] - phone) (no phone) 10-06-2018 - 10-06-2018 09-09-2018 Telephone encounter Other chronic pain PRINCE BRENN AN (no [facility] - phone) (no phone) 09-09-2018 - 09-09-2018 08-12-2018 Telephone encounter Other chronic pain PRINCE BRENN AN (no [facility] - phone) (no phone) 08-12-2018 - 08-12-2018 07-15-2018 Telephone encounter Other chronic pain PRINCE BRENN AN (no [facility] [place] - phone) (no phone) 07-15-2018 - 07-15-2018 06-17-2018 Telephone encounter Other chronic pain PRINCE CERON (no [facility] - phone) (no phone) 06-17-2018 - 06-17-2018 05-20-2018 Telephone encounter Other chronic pain PRINCE BROWNE AN (no [facility] - phone) (no phone) 05-20-2018 - 05-20-2018 04-22-2018 Telephone encounter Other chronic pain PRINCE BROWNE AN (no [facility] - phone) (no phone) 04-22-2018 - 04-22-2018 no information Encounter for general no name (no phone) no o rganization name adult medical (no phone) examination without abnormal findings no information Pre-procedural no name (no phone) no organiza tion name laboratory examination (no phone) Medical Equipment No Information Payers No Information History general Narrative - Reported Note Type Note Facility History general Narrative - Reported Type Medical Anxiety History Medical Major depressive disorder, single episode, unspecified History Medical Pain, unspecified History Medical asthma History Surgical cholecystectomy History Surgical section History Surgical partial hysterectomy History Hospitaliz surgeries ation History [facility] ([id number]) Summary Purpose eClinicalWorks SubmissioneClinicalWorks SubmissioneClinicalWorks SubmissioneClinicalWorks Submission Advance Directives Directive Response Recor ded Date/Time Advance Directives No 6:30am Organ Donor No 12/27/14 6:30am Resuscitation Status Full Code 12/04/14 3:44pm Directive Response Recor ded Date/Time Advance Directives No 6:30am Organ Donor No 12/27/14 6:30am Resuscitation Status Full Code 12/27/14 6:30am Directive Response Recor ded Date/Time Advance Directives No 6:30am Organ Donor No 05/10/14 6:30am Resuscitation Status Full Code 05/10/14 6:30am Discharge Instructions No hospital discharge instructions.No hospital discharge instructions.No hospital discharge instructions. Additional Source Comments This clinical document has been generated using [employer] software that has been certified by the Office of the National Coordinator for Health Information Technology (ONC 15.99.04.3023.Diam.[id number]) and the National Committee for Hand [employer] (NCQA, as an eMeasure certified technology). FOR RECORDS PERTAINING TO PATIENTS WHO ARE OR HAVE BEEN ENROLLED IN A CHEMICAL D EPENDENCY/SUBSTANCE ABUSE PROGRAM, SOME INFORMATION MAY BE OMITTED. This clinica l summary was aggregated from multiple sources. Caution should be exercised in using it in the provision of clinical care. This summary normalizes information from multiple sources, and as a consequence, information in this document may ma terially change the coding, format and clinical context of patient data. In anabell tion, data may be omitted in some cases. CLINICAL DECISIONS SHOULD BE BASED ON T HE PRIMARY CLINICAL RECORDS. [employer]. provides no warranty or guara ntee of the accuracy or completeness of information in this document.The [facility] information is based on time limited clinical information UNRECOGNIZED CONTENT PROVIDED BELOW FOR UNRECOGNIZED SECTION MEDICAL (GENERAL) HISTORY Type Description Date Medical History Anxiety Medical History Major depressive dis order, single episode, unspecified Medical History Pain, unspecified Medical History asthma Surgical History cholecystectomy Surgical History section Surgical History partial hysterectomy Hospitalization History surgeries UNRECOGNIZED CONTENT PROVIDED BELOW FOR UNRECOGNIZED SECTION REASON FOR VISIT Pain management/Anxiety, Patient reports she stopped taking her Zoloft 1.5 weeks ago because she felt they were making her more angry. She states she feels angr y and anxious now., ABoggsLPNControlled Med Refill 03/28/18Controlled Med Refill 04/25/18Controlled Med Refill 05/23/18Controlled Med Refill 06/20/18Controlled Med Refill 07/18/18Controlled Med Refill 08/15Pain management (chronic) Pt in for f ollow up States Rt ear has been leaking states eyes are hurting. Also has a knot in abdomen Carlos Sharma 12/05
--- OUTSIDE RECORDS SUMMARY | 2019-12-01 22:16 | XMS REPORT | Continuity of Care Document ---
Author Organization Unknown Address Unknown Phone Unavailable Allergies Active Description Code Type Severity Reaction Onset Reported/Identified Relationship to Patient Clinical Status Yes latex [id number] Drug Allergy Mild N/A 01/17/2009 Medications There is no data. Problems Date Dx Coded Attending Type Code Diagnosis Diagnosed By 11/05/2013 CHARLES PUENTES MD Ot 623 .8 NONINFLAM DIS VAGINA NEC 11/05/2013 CHARLES PUENTES MD Ot 626 .6 METRORRHAGIA 05/10/2014 JANNA LOUIS BEAU Adolfo Ot 278.00 OBESITY, NOS 05/10/2014 BEAU SALDIVAR DO Ot 305.1 TOBACCO USE DISORDER 05/10/2014 BEAU SALDIVAR DO Ot 626.2 EXCESSIVE MENSTRUATION 05/10/2014 BEAU SALDIVAR DO Ot V85.39 BODY MASS INDEX 39.0-39.9, ADULT 12/04/2014 JANNA DO BEAU S Ot 280.9 12/28/2014 BEAU SALDIVAR DO Ot 278.00 OBESITY, NOS 12/28/2014 BEAU SALDIVAR DO Ot 305.1 TOBACCO USE DISORDER 12/28/2014 BEAU SALDIVAR DO Ot 568.0 PERITONEAL [id number]-[id number]-PE/INF 12/28/2014 BEAU SALDIVAR DO Ot 620.1 CORPUS LUTEUM CYST 12/28/2014 BEAU SALDIVAR DO Ot 626.2 EXCESSIVE MENSTRUATION 12/28/2014 JANNA LOUIS BEAU S Ot V85.39 BODY MASS INDEX 39.0-39.9, ADULT 01/07/2015 BEAU SALDIVAR DO Ot 278.00 01/07/2015 BEAU SALDIVAR DO S Ot 626.8 01/07/2015 BEAU SALDIVAR DO S Ot V72.63 01/07/2015 BEAU SALDIVAR DO Ot V74.8 01/07/2015 JANNA LOUIS BEAU S Ot 280.9 01/07/2015 Ot 611.89 01/07/2015 Ot 620.2 01/07/2015 Ot 724.5 01/07/2015 Ot 625.9 01/07/2015 Ot 724.5 01/07/2015 Ot 625.9 01/07/2015 Ot 724.5 01/07/2015 FENECH DO, BEAU Mata Ot 625.9 01/07/2015 FENECH DO, BEAU Mata Ot 626.2 01/07/2015 FENECH DO, BEAU Mata Ot 626.2 01/07/2015 FENECH DO, BEAU Mata [...] 03/03/2015 FENECH DO, BEAU Mata Ot 280.9 IRON DEFIC ANEMIA NOS 03/19/2015 FENECH DO, BEAU Mata Ot 626.9 03/19/2015 FENECH DO, BEAU Mata Ot 278.00 03/19/2015 FENECH DO, BEAU Mata Ot 626.8 03/19/2015 FENECH DO, BEAU Mata Ot V72.63 03/19/2015 FENECH DO, BEAU Mata Ot V74.8 04/12/2019 FENECH DO, BEAU Mata Ot 625.9 FEM GENITAL SYMPTOMS NOS 04/12/2019 HERNANDEZECH DO, BEAU Mata Ot 626.2 EXCESSIVE MENSTRUATION 04/12/2019 FENECH DO, BEAU Mata Ot 626.2 EXCESSIVE MENSTRUATION 04/12/2019 FENECH DO, BEAU Mata Ot V72.63 PRE-PROCEDURAL LABORATORY EXAMINATION 04/12/2019 HERNANDEZECH DO, BEAU Mata Ot V74.8 SCREEN-BACTERIAL DIS NEC 04/12/2019 FENECH DO, BEAU Mata Ot 626.9 MENSTRUAL DISORDER NOS 04/12/2019 FENECH DO, BEAU Mata Ot 278.00 OBESITY, NOS 04/12/2019 FENECH DO, BEAU Mata Ot 626.8 MENSTRUAL DISORDER NEC 04/12/2019 FENECH DO, BEAU Mata Ot V72.63 PRE-PROCEDURAL LABORATORY EXAMINATION 04/12/2019 JANNA LOUIS, BEAU Mata Ot V74.8 SCREEN-BACTERIAL DIS NEC 04/12/2019 JANNA LOUIS, BEAU S Ot 280.9 IRON DEFIC ANEMIA NOS 04/12/2019 JANNA LOUIS, BEAU S Ot 625.9 FEM GENITAL SYMPTOMS NOS 04/12/2019 BEAU SALDIVAR DO S Ot 626.2 EXCESSIVE MENSTRUATION 04/12/2019 BEAU SALDIVAR DO S Ot 626.2 EXCESSIVE MENSTRUATION 04/12/2019 JANNA LOUIS, BEAU S Ot V72.63 PRE-PROCEDURAL LABORATORY EXAMINATION 04/12/2019 JANNA LOUIS, BEAU S Ot V74.8 SCREEN-BACTERIAL DIS NEC 04/12/2019 JANNA LOUIS, BEAU S Ot 626.9 MENSTRUAL DISORDER NOS 04/12/2019 BEAU SALDIVAR DO S Ot 278.00 OBESITY, NOS 04/12/2019 JANNA LOUIS, BEAU S Ot 626.8 MENSTRUAL DISORDER NEC 04/12/2019 JANNA LOUIS, BEAU Mata Ot V72.63 PRE-PROCEDURAL LABORATORY EXAMINATION 04/12/2019 JANNA LOUIS BEAU Mata Ot V74.8 SCREEN-BACTERIAL DIS NEC 04/12/2019 JANNA LOUIS, BEAU Mata Ot 280.9 IRON DEFIC ANEMIA NOS 04/20/2019 SHARON NEW Ot D64.9 ANEMIA, UNSPECIFIED 04/20/2019 SHARON NEW Ot F17.210 NICOTINE DEPENDENCE, CIGARETTES, UNCOMPL 04/20/2019 SHARON NEW Ot J45.909 UNSPECIFIED ASTHMA, UNCOMPLICATED 04/20/2019 SHARON NEW Ot S81.051A OPEN BITE, RIGHT KNEE, INITIAL ENCOUNTER 04/20/2019 SHARON NEW Ot W54.0XXA BITTEN BY DOG, INITIAL ENCOUNTER 04/20/2019 SHARON NEW Ot Y92.[address] IN SINGLE-FAMILY (PRIVATE) 04/20/2019 SHARON NEW Ot Z23 ENCOUNTER FOR IMMUNIZATION 04/20/2019 SHARON NEW Ot Z91.040 LATEX ALLERGY STATUS 04/22/2019 SHARON NEW Ot D64.9 ANEMIA, UNSPECIFIED 04/22/2019 SHARON NEW Ot F17.210 NICOTINE DEPENDENCE, CIGARETTES, UNCOMPL 04/22/2019 SHARON NEW Ot J45.909 UNSPECIFIED ASTHMA, UNCOMPLICATED 04/22/2019 SHARON NEW Ot S81.051A OPEN BITE, RIGHT KNEE, INITIAL ENCOUNTER 04/22/2019 SHARON NEW Ot W54.0XXA BITTEN BY DOG, INITIAL ENCOUNTER 04/22/2019 SHARON NEW Ot Y92.[address] IN SINGLE-FAMILY (PRIVATE) 04/22/2019 SHARON NEW Ot Z23 ENCOUNTER FOR IMMUNIZATION 04/22/2019 SHARON NEW Ot Z91.040 LATEX ALLERGY STATUS Procedures There is no data. Results Test Result Range CMP - 06/21/17 11:34 Glucose, Serum 81 mg/dL 65-99 BUN 6 mg/dL 6-24 Creatinine, Serum 0.74 mg/dL 0.57-1.00 eGFR If NonAfricn Am 102 mL/min/1.73 >59 eGFR If Africn Am 117 mL/min/1.73 >5 9 BUN/Creatinine Ratio 8 9-23 Sodium, Serum 137 [...] - 09 PANEL (PROFILE 1) - 02/06/19 17 :38 Prescribed Drug 1 Hydrocodone NRG Creatinine 194.6 mg/dL > or = 20.0 pH 6.64 4.5 - 9.0 Oxidant NEGATIVE [...] aOH alprazolam CONSISTENT NRG Alphahydroxymidazolam NEGATIVE ng/mL < 50 medMATCH aOH midazolam CONSISTENT NRG Alphahydroxytriazolam NEGATIVE ng/mL < 50 medMATCH aOH triazolam CONSISTENT NRG Aminoclonazepam NEGATIVE ng/mL <25 medMATCH Aminoclonazepam CONSISTENT NRG Hydroxyethylflurazepam NEGATIVE ng/mL <50 medMATCH OH,Et flurazepam CONSISTENT NR G Lorazepam NEGATIVE ng/mL <50 medMATCH Lorazepam CONSISTENT [...] NEGATIVE ng/mL <25 medMATCH Phencyclidine CONSISTENT NRG TSH - 10/02/19 17:44 TSH 1.29 mIU/L NRG PDM - 09 PANEL (PROFILE 1) - 10/02/19 17 :44 Prescribed Drug 1 Hydrocodone NRG Creatinine 286.1 mg/dL > or = 20.0 pH 5.9 4.5-9.0 Oxidant NEGATIVE mcg/mL <200 Amphetamines NEGATIVE ng/mL <500 medMATCH Amphetamines CONSISTENT NRG Benzodiazepines NEGATIVE ng/mL <100 medMATCH Benzodiazepines CONSISTENT NRG Marijuana Metabolite POSITIVE ng/mL <20 Cocaine Metabolite NEGATIVE ng/mL <150 medMATCH Cocaine Metab CONSISTENT NRG Opiates POSITIVE ng/mL <100 Oxycodone NEGATIVE ng/mL <100 medMATCH Oxycodone CONSISTENT NRG COMMENT NRG Codeine NEGATIVE ng/mL <50 medMATCH Codeine CONSISTENT NRG Hydrocodone 154 ng/mL <50 medMATCH Hydrocodone CONSISTENT NRG Hydromorphone 111 ng/mL <50 medMATCH Hydromorphone CONSISTENT NRG Morphine NEGATIVE ng/mL <50 medMATCH Morphine CONSISTENT NRG Norhydrocodone 357 ng/mL <50 medMATCH Norhydrocodone CONSISTENT NRG Marijuana Metabolite 5 ng/mL <5 medMATCH Marijuana Metab INCONSISTENT N RG Barbiturates NEGATIVE ng/mL <300 medMATCH Barbiturates CONSISTENT NRG Methadone Metabolite NEGATIVE ng/mL <100 medMATCH Methadone Metab CONSISTENT NRG Phencyclidine NEGATIVE ng/mL <25 medMATCH Phencyclidine CONSISTENT NRG Encounters ACCT No. Visit Date/Time Discharge Status Pt. Type Provider Facility Loc./Unit Complaint [id number] 10/02/2019 16:40:00 10/02/2019 23:59:5 9 CLS Outpatient PRINCE COHEN APRN [facility] [id number] 10/02/2019 16:40:00 Document Registration [id number] 02/06/2019 16:00:00 Document Registration [id number] 12/01/2017 10:40:00 Document Registration [id number] 06/21/2017 10:40:00 Document Registration [id number] 04/12/2019 16:55:00 019 17:29:00 DIS Outpatient SHARON NEW [facility] ER DOG BITE [id number] 03/04/2015 00:10:00 015 23:59:59 CLS Preadmit BEAU SALDIVAR DO [facility] SDC ANEMIA [id number] 12/04/2014 08:09:00 015 00:01:00 DIS Outpatient BEAU SALDIVAR DO [facility] SDC ANEMIA [id number] 12/27/2014 06:00:00 04/24/2 015 08:50:00 DIS Outpatient BEAU SALDIVAR DO Via [facility] ADNORMAL UTERINE BLEEDI NG [id number] 12/20/2014 12:06:00 23:59:59 CLS Outpatient BEAU SALDIVAR DO S [facility] PREOP ABNORMAL UTERINE BLEEDI NG [id number] 11/28/2014 11:48:00 23:59:59 CLS Outpatient BEAU SALDIVAR DO S [facility] RAD AUB [id number] 05/10/2014 06:00:00 10:20:00 DIS Out[facility] [id number] 05/04/2014 10:12:00 23:59:59 CLS Outpatient BEAU SALDIVAR DO S [facility] PREOP DUB [id number] 04/13/2014 13:01:00 23:59:59 CLS Outpatient BEAU SALDIVAR DO [facility] RAD MENOARRHGIA PELVIC PAIN [id number] 11/05/2013 12:36:00 13:37:00 DIS Emergency CHARLES PUENTES MD [facility] ER VAGINAL BLEEDING [id number] 12/01/2019 22:09:[address] Emergency ATNONY HERNÁNDEZ MD Via [facility] ER CP [id number] 01/07/2015 11:09:00 Document Registration [id number] 01/07/2015 11:09:00 Document Registration [id number] 06/05/2011 11:13:00 Document Registration [id number] 06/04/2011 08:05:00 Document Registration [id number] 12/17/2010 08:51:00 Document Registration
[2019-12-01 22:46] LABS: ABG BASE EXCESS -11.3 MMOL/L (-2.5-2.5); ABG OXYGEN SATURATION 99 % (94-100); ABG PCO2 60 MMHG (35-45); ABG TCO2 19.5 MMOL/L (21.0-31.0)
[2019-12-01 22:49] LABS: ABG PH 7.08 (7.37-7.43)
[2019-12-01 22:50] LABS: ABG PO2 0 MMHG (79-93); ALLENS TEST POSITIVE; INSPIRED O2 N; PATIENT TEMP 96.1; VENTILATOR NO
--- NOTE | 2019-12-01 22:50 | NUR ---
50MCG FENTANYL GIVEN IV PER ASHISH ONOFRE APRN, USED FROM [facility] BOX WITNESSED WASTE WITH JARAD NI
[2019-12-01 22:55] LABS: BASOPHILS % (AUTO) 0 % (0-10); EOSINOPHILS # (AUTO) 0.1 10^3/uL (0.0-0.3); EOSINOPHILS % (AUTO) 1 % (0-10); HEMATOCRIT 43 % (35-52); HEMOGLOBIN 14.4 G/DL (11.5-16.0); LYMPHOCYTES # (AUTO) 6.5 X 10^3 (1.0-4.0); LYMPHOCYTES % (AUTO) 47 % (12-44); MEAN CORPUSCULAR HEMOGLOBIN 32 PG (25-34); MEAN CORPUSCULAR HGB CONC 33 G/DL (32-36); MEAN CORPUSCULAR VOLUME 95 FL (80-99); MEAN PLATELET VOLUME 10.8 FL (7.4-10.4); MONOCYTES # (AUTO) 0.7 X 10^3 (0.0-1.0); MONOCYTES % (AUTO) 5 % (0-12); NEUTROPHILS # (AUTO) 6.4 X 10^3 (1.8-7.8); NEUTROPHILS % (AUTO) 47 % (42-75); PLATELET COUNT 142 10^3/uL (130-400); RED CELL DISTRIBUTION WIDTH 13.6 % (10.0-14.5); WHITE BLOOD COUNT 13.7 10^3/uL (4.3-11.0)
[2019-12-01 22:57] LABS: BILIRUBIN,URINE NEGATIVE (NEGATIVE); CLARITY,URINE CLEAR; COLOR,URINE YELLOW; GLUCOSE, URINE (UA) NEGATIVE (NEGATIVE); KETONES,URINE NEGATIVE (NEGATIVE); LEUKOCYTE ESTERASE ,URINE NEGATIVE (NEGATIVE); NITRITE,URINE NEGATIVE (NEGATIVE); PROTEIN,URINE 2+ (NEGATIVE)
[2019-12-01 23:09] LABS: ALBUMIN 4.4 GM/DL (3.2-4.5); BILIRUBIN,TOTAL 0.3 MG/DL (0.1-1.0); CALCIUM 9.7 MG/DL (8.5-10.1); CREATININE SERUM 1.22 MG/DL (0.60-1.30); POTASSIUM 4.1 MMOL/L (3.6-5.0); TOTAL PROTEIN 7.4 GM/DL (6.4-8.2)
[2019-12-01 23:21] LABS: BACTERIA,URINE TRACE /HPF; CALCIUM OXALATE CRYSTALS,UR FEW /LPF; RBC,URINE 0-2 /HPF
[2019-12-01 23:28] LABS: MAGNESIUM 1.8 MG/DL (1.6-2.4)
[2019-12-01 23:33] LABS: INR 1.1 (0.8-1.4); PARTIAL THROMBOPLASTIN TIME 35 SEC (24-35); PROTHROMBIN TIME PATIENT 14.4 SEC (12.2-14.7)
[2019-12-01 23:34] LABS: FIBRIN DEGRADATION PRODUCTS > 27.00 UG/ML (0.00-0.49)
--- NOTE | 2019-12-02 00:03 | ED General ---
General Stated Complaint: CP Source of Information: Patient, Family Exam Limitations: Physical Impairments (ANTONY HERNÁNDEZ MD) History of Present Illness Date Seen by Provider: Dec 01, 2019 Time Seen by Provider: 22:10 Initial Comments This 44-year-old woman presents to the emergency room via private vehicle accompanied by her boyfriend with complaints of severe chest pain, shortness of breath, and dry heaving. She is in significant distress on arrival. She carlos cates pain started shortly before arrival. She was found to be hypoxic with an oxygen saturation in the 70s. She was tripoding and puffing to maintain her breathing. She has a history of asthma. While trying to stabilize her and assess her, she lost consciousness. She then became bradycardic and pulseless. CPR was immediately started. It was later discovered after talking with her sons that she traveled to the [facility] last week by car. She reportedly did not complain of any symptoms of illness until she developed the chest pain and shortness of breath tonight. (ANTONY HERNÁNDEZ MD) Allergies and Home Medications Allergies Coded Allergies: latex (Unverified Allergy, Mild, 01/17/09) Home Medications Albuterol Sulfate 1 Puff Puff, 1 PUFF IH Q4H PRN for WHEEZING, (Reported) PRN WHEEZING Amoxicillin/Potassium Clav 1 Each Tablet, 1 EACH PO BID Prescribed by: SHARON NEW on 04/12/191719 Docusate Sodium 100 Mg Cap, 100 MG PO BID PRN for CONSTIPATION Prescribed by: BEAU SALDIVAR on 12/28/14831 Ferrous Sulfate 325 Mg Tablet, 325 MG PO BID, (Reported) Folic Acid/Multivits-Min/Lut 1 Each Tab.chew, 1 EACH PO DAILY, (Reported) Hydrocodone Bit/Acetaminophen 1 Ea Tablet, 1 EA PO Q6H PRN for PAIN Prescribed by: BEAU SALDIVAR on 12/28/14831 Ibuprofen 600 Mg Tab, 600 MG PO Q6H PRN for PAIN Prescribed by: BEAU SALDIVAR on 12/28/14831 Salmeterol Xinaf/Fluticasone 1 Diskus Inhp, 0 INH DAILY, (Reported) [Simethicone] 80 MG CHEW, 40 MG PO TID PRN for INDIGESTION Prescribed by: BEAU SALDIVAR on 12/28/14831 Patient Home Medication List Home Medication List Reviewed: Yes (ANTONY HERNÁNDEZ MD) Review of Systems Review of Systems Constitutional: see HPI EENTM: no symptoms reported Respiratory: see HPI Cardiovascular: see HPI Gastrointestinal: see HPI Genitourinary: no symptoms reported : No Musculoskeletal: no symptoms reported Skin: change in color Psychiatric/Neurological: No Symptoms Reported Hematologic/Lymphatic: No Symptoms Reported Immunological/Allergic: no symptoms reported (ANTONY HERNÁNDEZ MD) Past Vvvrssu-Fcdilo-Alncrj Hx Past Med/Social Hx: Reviewed Nursing Past Med/Soc Hx (ANTONY HERNÁNDEZ MD) Patient Social History Type Used: Cigarettes Recent Foreign Travel: No Contact w/Someone Who Travel: No (ANTONY HERNÁNDEZ MD) Immunizations Up To Date Tetanus Booster (TDap): Unknown Date of Influenza Vaccine: Jul 06, 2014 (ANTONY HERNÁNDEZ MD) Past Medical History Surgeries: Yes (C/S X2, D&C, ) Section Respiratory: Yes (asthma) Asthma Cardiac: No Neurological: No Reproductive Disorders: Yes (DUB) Female Reproductive Disorders: Denies Sexually Transmitted Disease: No HIV/AIDS: No Gastrointestinal: No Musculoskeletal: No Endocrine: No HEENT: No Loss of Vision: Denies Hearing Impairment: Denies Cancer: No Psychosocial: No Integumentary: No Blood Disorders: Yes (ANEMIA) Adverse Reaction/Blood Tranf: No (ANTONY HERNÁNDEZ MD) Family Medical History Kidney disease 19 MOTHER Physical Exam-Suspected Sepsis Physical Exam Vital Signs Vital Signs - First Documented 12/01/19 12/01/19 12/02/19 22:08 22:55 02:05 Temp 35.3 Pulse 151 Resp 0 B/P (MAP) 121/37 (65) Pulse Ox 0 (ASHISH ELIZONDO APRN) Vital Signs Capillary Refill : (ANTONY HERNÁNDEZ MD) Height, Weight, BMI Height: 5'3.00" Weight: 221lbs. oz. 100.404176iu; 39.14 BMI Method:Stated General Appearance: WD/WN, Severe Distress HEENT: PERRL/EOMI, Other (cyanosis of the lips and ears) Neck: Normal Inspection Respiratory: Respiratory Distress, Wheezing, Other (very tight wheezing with very little air movement) Cardiovascular: Regular Rate, Rhythm, No Edema, No Murmur Gastrointestinal: Soft; No Distended Extremity: Normal Inspection, No Pedal Edema Neurologic/Psychiatric: Alert, No Motor/Sensory Deficits, event designer II-XII Norm as Tested, Other (in distress) Skin: warm/dry, cyanosis (lips and ears) (ANTONY HERNÁNDEZ MD) Procedures/Interventions Date of ETT Placement: Dec 01, 2019 Time of ETT Placement: 22:40 Intubation Method: orotracheal Tube Size: 7.5 Medications: Etomidate, Propofol, Rocuronium Positive End Tide CO2: Yes Breath Sounds after Intubation: bilateral-equal Intubation Complications: no complications Post Intubation Xray: Yes (ASHISH ELIZONDO APRN) CPR: After intubation she developed pea with several rounds of epi given along with chest compressions before narrow complex tachycardia WITH pulse ensued, we did do a synchronized cardioversion 200 J 1 with no change in rhythm. Was likely just sinus tach related to the atropine and epinephrine was given during the first episode of bradycardia that progressed to PEA initially. Once the epinephrine wore off she developed PEA again, again chest compressions resumed, and Ambu bag and endotracheal tube and epinephrine was given every 3 minutes for several more rounds before ceasing resuscitation efforts at 2312. See nursing note documentation for timeline of events Defibrillation: synchronized cardioversion for narrow complex rhythm rate of 168 with hypotension after intubation, 200 joules x1 with no effect. most of rhythm was PEA. see nursing documentation. Pulse Rate (adult): 168 Rhythm: SVT (ASHISH ELIZONDO APRN) Additional Procedures: arterial blood draw (right brachial drawn by me), cardioversion/defib (ASHISH ELIZONDO APRN) Progress/Results/Core Measures Suspected Sepsis SIRS Temperature: Pulse: Respiratory Rate: Laboratory Tests 12/01/19 22:10: White Blood Count 13.7H Blood Pressure / Mean: Laboratory Tests 12/01/19 22:10: Creatinine 1.22, INR Comment 1.1, Platelet Count 142, Total Bilirubin 0.3 (ANTONY HERNÁNDEZ MD) Results/Orders Lab Results Laboratory Tests Test 12/01/19 22:10 12/01/19 22:20 12/01/19 22:30 12/01/19 23:13 Range/Units White Blood Count 13.7 H 4.3-11.0 10^3/uL Red Blood Count 4.54 4.35-5.85 10^6/uL Hemoglobin 14.4 11.5-16.0 G/DL Hematocrit 43 35-52 % Mean Corpuscular Volume 95 80-99 FL Mean Corpuscular Hemoglobin 32 25-34 PG Mean Corpuscular Hemoglobin Concent 33 32-36 G/DL Red Cell Distribution Width 13.6 10.0-14.5 % Platelet Count 142 130-400 10^3/uL Mean Platelet Volume 10.8 H 7.4-10.4 FL Neutrophils (%) (Auto) 47 42-75 % Lymphocytes (%) (Auto) 47 H 12-44 % Monocytes (%) (Auto) 5 0-12 % Eosinophils (%) (Auto) 1 0-10 % Basophils (%) (Auto) 0 0-10 % Neutrophils # (Auto) 6.4 1.8-7.8 X 10^3 Lymphocytes # (Auto) 6.5 H 1.0-4.0 X 10^3 Monocytes # (Auto) 0.7 0.0-1.0 X 10^3 Eosinophils # (Auto) 0.1 0.0-0.3 10^3/uL Basophils # (Auto) 0.0 0.0-0.1 10^3/uL Prothrombin Time 14.4 12.2-14.7 SEC INR Comment 1.1 0.8-1.4 Activated Partial Thromboplast Time 35 24-35 SEC D-Dimer > 27.00 *H 0.00-0.49 UG/ML Sodium Level 145 135-145 MMOL/L Potassium Level 4.1 3.6-5.0 MMOL/L Chloride Level 105 98-107 MMOL/L Carbon Dioxide Level 25 21-32 MMOL/L Anion Gap 15 H 5-14 MMOL/L Blood Urea Nitrogen 15 7-18 MG/DL Creatinine 1.22 0.60-1.30 MG/DL Estimat Glomerular Filtration Rate 48 BUN/Creatinine Ratio 12 Glucose Level 81 70-105 MG/DL Calcium Level 9.7 8.5-10.1 MG/DL Corrected Calcium 9.4 8.5-10.1 MG/DL Magnesium Level 1.8 1.6-2.4 MG/DL Total Bilirubin 0.3 0.1-1.0 MG/DL Aspartate Amino Transf (AST/SGOT) 26 5-34 U/L Alanine Aminotransferase (ALT/SGPT) 34 0-55 U/L Alkaline Phosphatase 91 40-136 U/L Myoglobin 58.9 10.0-92.0 NG/ML Troponin I 0.108 H <0.028 NG/ML C-Reactive Protein High Sensitivity 0.45 0.00-0.50 MG/DL B-Type Natriuretic Peptide 1215.3 H <100.0 PG/ML Total Protein 7.4 6.4-8.2 GM/DL Albumin 4.4 3.2-4.5 GM/DL Urine Color YELLOW Urine Clarity CLEAR Urine pH 6.0 5-9 Urine Specific [place] >=1.030 1.016-1.022 Urine Protein 2+ H NEGATIVE Urine Glucose (UA) NEGATIVE NEGATIVE Urine Ketones NEGATIVE NEGATIVE Urine Nitrite NEGATIVE NEGATIVE Urine Bilirubin NEGATIVE NEGATIVE Urine Urobilinogen 0.2 < = 1.0 MG/DL Urine Leukocyte Esterase NEGATIVE NEGATIVE Urine RBC (Auto) TRACE-I NEGATIVE Urine RBC 0-2 /HPF Urine WBC NONE /HPF Urine Crystals PRESENT H /LPF Urine Calcium Oxalate Crystals FEW H /LPF Urine Bacteria TRACE /HPF Urine Casts NONE /LPF Urine Mucus MODERATE H /LPF Urine Culture Indicated CULTURE PENDING Urine Opiates Screen NEGATIVE NEGATIVE Urine Oxycodone Screen NEGATIVE NEGATIVE Urine Methadone Screen NEGATIVE NEGATIVE Urine Propoxyphene Screen NEGATIVE NEGATIVE Urine Barbiturates Screen NEGATIVE NEGATIVE Ur Tricyclic Antidepressants Screen NEGATIVE NEGATIVE Urine Phencyclidine Screen NEGATIVE NEGATIVE Urine Amphetamines Screen NEGATIVE NEGATIVE Urine Methamphetamines Screen NEGATIVE NEGATIVE Urine Benzodiazepines Screen NEGATIVE NEGATIVE Urine Cocaine Screen NEGATIVE NEGATIVE Urine Cannabinoids Screen NEGATIVE NEGATIVE Blood Gas Puncture Site RIGHT BRACHIAL Blood Gas Patient Temperature 96.1 Arterial Blood pH 7.08 *L 7.37-7.43 Arterial Blood Partial Pressure CO2 60 H 35-45 MMHG Arterial Blood Partial Pressure O2 0 *L 79-93 MMHG Arterial Blood HCO3 18 L 23-27 MMOL/L Arterial Blood Total CO2 19.5 L 21.0-31.0 MMOL/L Arterial Blood Oxygen Saturation 99 94-100 % Arterial Blood Base Excess -11.3 L -2.5-2.5 MMOL/L Feroz Test POSITIVE Blood Gas Ventilator Setting NO Blood Gas Inspired Oxygen N Triglycerides Level 209 H <150 MG/DL (ASHISH ELIZONDO APRN) My Orders Orders - ASHISH ELIZONDO APRN Arterial Blood Gas (12/01/19 22:42) Propofol Drip (Icu) (Diprivan Drip (Icu) (12/01/19 23:00) Sedation Communication Q48H (12/01/19 22:52) Triglycerides (12/01/19 22:52) Ns Iv 1000 Ml (Sodium Chloride 0.9%) (12/02/19 01:38) (ASHISH ELIZONDO APRN) Vital Signs/I&O 12/02/19 02:05 Pulse 0 Resp 0 B/P (MAP) 0/0 Pulse Ox 0 (ASHISH ELIZONDO APRN) Vital Signs/I&O Capillary Refill : (ANTONY HERNÁNDEZ MD) Progress Note : Progress Note This case was, managed with Ashish Elizondo NP. See his dictation in this same note for critical care interventions. ROSC achieved after atropine, epinephrine and CPR. However, short time later she became pulseless again. CPR continued through multiple rounds and ROSC was not achieved after the second resuscitation effort. Patient ultimately was pronounced . The cause of is uncertain but she would've been at risk for pulmonary embolism giving her recent travel and smoking history. D-dimer was also extremely elevated. I did speak with the patient's boyfriend, Mariano Marinelli ([phone]). He would not provide much information and our phone conversation was either disconnected or he hung up on me multiple times. I also spoke with the patient's sons, Vinayak Hester ([phone]) and Mani (or Alex???) Mir ([phone]). They were not aware of her having any illness prior to this evening. The sons were presumed to be adults when I spoke with them on the phone. However, the next day it was reported to me that their ages are 16 and 17. A DCF report was filed since then her father last year and I'm uncertain if they have a responsible guardian available to care for them. Dr. NAGEL, senior ui designer, was contacted immediately after the . He requested COVID-19 testing due to the severe respiratory symptoms and recent travel to the [facility]. Patient was also taken as a change management's case to [facility] for further investigation. It should also be noted that a large sum of hobson in the form of large bills likely totaling several thousand dollars was found in the patient's pocketbook. A tamper lock was placed on the possessions and they were sent with the patient to [facility] via the [facility]. Family did present to the hospital the next day looking for the money. I instructed both Mariano Marinelli and the patient's sons to home quarantine until the results of COVID-19 testing are known. (ANTONY HERNÁNDEZ MD) ECG EKG #1: EKG Time: 22:23 Rate: 81 Rhythm: Normal Sinus Intervals: Normal Comment Sinus rhythm with ST depression in the inferior and lateral leads suggestive of ischemia. No ST elevation. No abnormal intervals or axis deviation. EKG #2: EKG Time: 22:33 Rate: 170 Comment Narrow complex tachycardia with ST depression in the inferior and lateral leads. (ANTONY HERNÁNDEZ MD) Diagnostic Imaging Diagonstic Imaging: Xray Plain Films/CT/US/NM/MRI: chest Comments Chest x-ray viewed by me. Report not yet available. There appears to be infiltrate in the right lower lung. Mediastinum does appear widened which may be partially due to rotational effect. Borderline cardiomegaly. There also appears to be a calcified density in the right upper lung. (ANTONY HERNÁNDEZ MD) Critical Care Note Critical Care Start Time: 22:40 Stop Time: 23:12 Total Time (minutes) 32 Date of : Dec 01, 2019 Time of : 23:12 (ASHISH ELIZONDO APRN) Departure Impression Primary Impression: Cardiopulmonary arrest Additional Impressions: Chest pain Qualified Codes: R07.9 - Chest pain, unspecified Elevated d-dimer Disposition: 20 Condition: Departure-Patient Inst. Referrals: [facility] [place]) Primary Care Physician PRINCE COHEN (Family) Primary Care Physician ANTONY HERNÁNDEZ MD Dec 02, 2019 00:03 ASHISH ELIZONDO APRN Dec 02, 2019 14:02
--- NOTE | 2019-12-02 02:03 | NUR ---
DURING LEGAL STENOGRAPHER'S INVENTORY WHILE PACKAGING PT FOR TRANSPORT OF THE BODY THE PT'S WALLET WAS DISCOVERED TO CONTAIN A LARGE SUM OF MONEY, ALONG WITH THE PT'S ID. ITEMS PLACED IN BODY BAG WITH THE PT.
[2019-12-02 02:05] VITALS: BP 0/0
--- NOTE | 2019-12-02 02:05 | NUR ---
TUBE AND ROD STRAIGHTENER HERE TO COLLECT PATIENT. ALL BELONGINGS WITH PATIENT LOCKED IN BODY BAG.
[2019-12-02 02:29] LABS: AMPHETAMINE SCREEN, URINE NEGATIVE (NEGATIVE); BARBITURATE SCREEN URINE NEGATIVE (NEGATIVE); BENZODIAZEPINES SCREEN URINE NEGATIVE (NEGATIVE); CANNABINOID SCREEN, URINE NEGATIVE (NEGATIVE); COCAINE SCREEN URINE NEGATIVE (NEGATIVE); METHADONE STAT NEGATIVE (NEGATIVE); METHAMPHETAMINE SCREEN URINE S NEGATIVE (NEGATIVE); OPIATE SCREEN URINE NEGATIVE (NEGATIVE); OXYCODONE STAT NEGATIVE (NEGATIVE); PROPOXYPHENE STAT NEGATIVE (NEGATIVE); TRICYCLIC ANTIDEPRESSANTS SCRE NEGATIVE (NEGATIVE)
--- NOTE | 2019-12-02 07:13 | Diagnostic Imaging Report ---
EXAM: CHEST 1 VIEW, AP/PA ONLY INDICATION: CODE BLUE. COMPARISON: 12/01/2019 at 10:52 PM. FINDINGS: ETT tip at the level of the clavicles. NG tube tip below the [id number]. Cardiomegaly with pulmonary vascular congestion. No pleural effusion or pneumothorax. No acute osseous findings. IMPRESSION: 1. Cardiomegaly with pulmonary vascular congestion. 2. Support lines in the expected positions. Dictated by: Dictated on workstation # [id number]
--- NOTE | 2019-12-02 12:46 | NUR ---
called when pt's Minor son and his guardian came asking about disposition of body and pt's belongings. Determined that pt is with functional director. Gave contact info and offered consolation.
== END | disposition expired ==
LOC: EDUNIT# 22:07 → ER 22:09
DX: I46.9 Cardiac arrest, cause unspecified (principal); R79.1 Abnormal coagulation profile; J45.909 Unspecified asthma, uncomplicated; Z91.040 Latex allergy status
CPT/HCPCS: 36415; 51702; 71045; 80053; 80306; 81000; 82805; 83735; 83874; 83880; 84478; 84484; 85025; 85379; 85610; 85730; 86141; 87088; 87635; 93041